=== PATIENT | male | born 1940 | race African-American/Black ===

== ENCOUNTER 2017-07-10 16:19 | Inpatient (IN) | payer MEDICARE, OTHER ==
[2017-07-10 17:02] LABS: Hemoglobin 11.6 g/dL (14.0-18.0); Mean Corpuscular HGB CONC 34.2 g/dL (32.0-36.0); Mean Corpuscular Hemoglobin 38.4 pg (27.0-31.0); Mean Platelet Volume 7.9 fL (7.4-10.4); Platelet Count 60 thou/uL (130-400); Red Blood Cell (RBC) Count 3.03 mill/uL (4.70-6.10); White Blood Cell (WBC) Count 15.7 thou/uL (4.8-10.8)
[2017-07-10 17:03] LABS: ALT (SGPT) 80 U/L (8-55); AST (SGOT) 544 U/L (5-34); Albumin 2.4 g/dL (3.4-4.8); Alkaline Phosphatase 51 U/L (40-150); Anion Gap 14 mmol/L (10-20); BUN (Urea Nitrogen) 17 mg/dL (8.4-25.7); Bilirubin, Total 1.6 mg/dL (0.2-1.2); Calc. Creatinine Clearance 0 mL/min (70-130); Carbon Dioxide 23 mmol/L (23-31); Chloride 103 mmol/L (98-107); Estimated GFR-MDRD 61; Globulin 2.2 g/dL (2.4-3.5); Glucose 65 mg/dL (83-110); Protein, Total 4.6 g/dL (5.8-8.1); Sodium 137 mmol/L (136-145)
[2017-07-10 17:18] LABS: Band 34 % (5-11); Lymphocytes 1 % (21-51); MDiff Complete? YES; Macrocytosis SLIGHT = 6-15 cells (100X) (0-5/hpf); Metamyelocyte 4 % (0-0); Monocytes 2 % (0-10); Neutrophil 59 % (42-75); PLT Morphology Comment Appears Decreased; Polychromasia SLIGHT = 2-3 cells (100X) (0-2/hpf); Potassium 2.9 mmol/L (3.5-5.1); Vacuoles SLIGHT
--- NOTE | 2017-07-10 17:27 | RAD ---
SINGLE VIEW OF THE CHEST: Comparison: None. History: Hematuria, fever. FINDINGS: Single view of the chest shows a normal sized cardiomediastinal silhouette with atherosclerotic calci fications in the aorta. Hyperexpansion of the lungs may be secondary to COPD. There is no evidence of consolidation, mass or pleural effusion. IMPRESSION: No evidence of acute cardiopulmonary disease. POS: [facility]
[2017-07-10] MEDS ORDERED: Piperacillin/Tazobactam 3.375 GM VIAL ONE (17:40)
[2017-07-10] MEDS ORDERED: SODIUM CHLORIDE 0.9% IVPB SCH ×2 (18:00)
[2017-07-10] MEDS ORDERED: POTASSIUM CHLORIDE IVPB SCH ×2 (18:00)
[2017-07-10] MEDS ORDERED: ADMIXTURE FEE CHEMO IVPB SCH ×2 (18:00)
--- NOTE | 2017-07-10 18:39 | CT ---
CT OF ABDOMEN AND PELVIS PERFORMED WITHOUT INTRAVENOUS CONTRAST ENHANCEMENT: History: Hematuria, fever. FINDINGS: The lung bases show emphysematous change. The liver and spleen as well as pancreas and gallbladder re gions appear fairly unremarkable given limitations of a noncontrast study. The gallbladder is slightl y distended. Some increased attenuation of the gallbladder lumen could represent some minimal sludge or potentially tiny stones but this equivocal. The right and left adrenal glands and right and left kidneys are normal in size. There are no renal c alculi or signs of obstruction. There is no significant periaortic adenopathy or obvious mesenteric a denopathy. There is some mild fluid filled distention of the small bowel. There is fluid within the r ight colon, air within the transverse colon. There is fat stranding which is fairly generalized but m ore prominent in the region of the ascending colon. Some of the air seen within the right colon near the cecum region is potentially within the bowel wall. I cannot exclude pneumotosis in this region. CT OF PELVIS PERFORMED WITHOUT CONTRAST ENHANCEMENT: The bladder is distended with a markedly enlarged prostate. There is fluid within the rectosigmoid re gion. The bladder wall is thickened considering the degree of distention. There are arthritic changes of the spine and hips noted. IMPRESSION: 1. Some mild generalized fat stranding within the fat, slightly more prominent in the ascending colon region. There is some air density which is along the right colon wall. I cannot exclude this as subt le areas of pneumotosis and the possibility of a colitis would have to be considered in this patient. There is also some mild fluid filled distention of some of the small bowel. 2. Distended bladder with an enlarged prostate. 3. Mild gallbladder distention. 4. Emphysematous lung change. Findings were discussed with Dr. Egan. POS: [facility]
--- NOTE | 2017-07-10 19:08 | PDOC.FPRHP ---
- History of Present Illness Chief Complaint: Severe sepsis, hematuria History of Present Illness: 76 yo M w PMH of HTN, BPH and blindness presents for weakness, hematuria, fever and low BP found by ems. Pt reports hematuria by 2-3 days, noticed today by family and has associated weakness, decreased appetite and nausea and vomiting over last 3 days. Hematuria is associated with some urethral irritation; but he denies suprapubic pain and tenderness. Pt reports some soft stool over same time period WITHOUT associated abd pain, hematochezia, and BRBPR. Additionally reports some SOB. He has not had anything to eat for the last 2 days, but is a current everyday drinker of approx 1.5 liters of liquor per week. He denies focal weakness, fever, chills, sweats, cp, constipation, and abdominal pain. Per nurse and pts chart when ems arrived pt was found to be hypotensive, tachycardic and had an elevated temperature. On chart review pt had a recent urinalaysis and culture done in [place] which showed Myroides and Providentia spp in the urine that was sensitive to cipro. At baseline pt is non-ambulatory. He reports he has not been compliant with his medications and has not seen his PCP in some time. Last medication refills were nearly 1 year ago. He is currently not taking any medications. PCP: Martha Code status: DNR ED Course: 4L NS, Vancomycin, Zosyn, 10 mEq K+ - Allergies/Adverse Reactions Allergies Allergy/AdvReac Type Severity Reaction Status Date / Time No Known Drug Allergies Allergy Verified 07/10/17 23:48 - Home Medications Medication Instructions Recorded Confirmed Type Aspirin 650 mg PO Q4HR PRN 07/10/17 07/10/17 History Budesonide-Formoterol [Symbicort 1 puff INH BID 07/10/17 07/10/17 History 160-4.5] Finasteride [Proscar] 5 mg PO DAILY 07/10/17 07/10/17 History Nebivolol HCl [Bystolic] 10 mg PO DAILY 07/10/17 07/10/17 History Triamterene/Hydrochlorothiazid 1 cap PO DAILY 07/10/17 07/10/17 History [Triamterene-Hctz 37.5-25 mg Cp] amLODIPine Bes/Olmesartan Med 1 each PO DAILY 07/10/17 07/10/17 History [Reuben 5-20 mg Tablet] Comments: Pt has not taken medications for several months. - History PMHx: HTN, BPH, COPD, HLD, hx CVA, alcohol abuse, former tobacco abuse, marijuana abuse, medication noncompliance PSHx:Unknown FHx:NA Social: Former smoker (45 pack-yr hx). Drinks 2 fifths of whiskey every week for many years. Smokes marijuana ~2x/wk for over 30 years. Denies other drug use. Lives at home with and brother. - Review of Systems General: reports: weight/appetite/sleep changes, fatigue. denies: fever/chills , night sweats Eyes: reports: other (Blind at baseline). denies: vision changes ENT: denies: nasal congestion, rhinorrhea Respiratory: reports: shortness of breath. denies: cough, congestion Cardiovascular: reports: edema. denies: chest pain, palpitation Gastrointestinal: reports: nausea, vomiting, diarrhea. denies: constipation, abdominal pain, GI bleeding Genitourinary: reports: dysuria, other (Hematuria, urinary retention) Skin: denies: rashes, lesions Musculoskeletal: denies: pain, swelling, arthritis/arthralgias Neurological: reports: weakness. denies: numbness, syncope - Vital signs BP: 88/65 HR: 122 RR: 22 Tmax: 100.4 Pox: 95% on RA Wt: 63.5Kg - Physical Exam Constitutional: awake, alert and oriented, other (Moderately distressed) HEENT: normocephalic and atraumatic, no scleral icterus, grossly normal hearing , MMM, oropharynx clear Neck: supple, trachea midline, no LAD, no JVD, no thyromegaly Chest: no-tender to palpation, no lesions Heart: RRR, normal S1/S2, no murmurs/rubs/gallops, other (Distant heart sounds) Lungs: CTAB, no respiratory distress, good air movement, no rales/rhonchi, no wheezing Abdomen: soft, non-tender, bowel sounds present, no masses/distention, other ( Normal resonence) Musculoskeletal: ROM grossly normal, other (wasting diffuse) Neurological: no focal deficit Skin: no rash/lesions, no jaundice Heme/Lymphatic: no purpura, no petechia, no LAD, other (Hematuria) FMR H&P: Results - Labs Result Diagrams: 07/11/17 03:45 07/11/17 03:45 Lab results: WBC 15.7 thou/uL (4.8-10.8) H 07/10/17 16:35 Hgb 11.6 g/dL (14.0-18.0) L 07/10/17 16:35 Hct 34.1 % (42.0-52.0) L 07/10/17 16:35 MCV 112.0 fl (80.0-94.0) H 07/10/17 16:35 Plt Count 60 thou/uL (130-400) L 07/10/17 16:35 Band Neuts % (Manual) 34 % (5-11) H 07/10/17 16:35 Sodium 137 mmol/L (136-145) 07/10/17 16:35 Potassium 2.9 mmol/L (3.5-5.1) L* 07/10/17 16:35 Chloride 103 mmol/L (98-107) 07/10/17 16:35 Carbon Dioxide 23 mmol/L (23-31) 07/10/17 16:35 BUN 17 mg/dL (8.4-25.7) 07/10/17 16:35 Creatinine 1.37 mg/dL (0.6-1.3) H 07/10/17 16:35 Glucose 65 mg/dL (83-110) L 07/10/17 16:35 Lactic Acid 6.5 mmol/L (0.5-2.2) H* 07/10/17 16:35 Calcium 7.0 mg/dL (7.8-10.44) L 07/10/17 16:35 Total Bilirubin 1.6 mg/dL (0.2-1.2) H 07/10/17 16:35 AST 544 U/L (5-34) H 07/10/17 16:35 ALT 80 U/L (8-55) H 07/10/17 16:35 Alkaline Phosphatase 51 U/L (40-150) 07/10/17 16:35 Serum Total Protein 4.6 g/dL (5.8-8.1) L 07/10/17 16:35 Albumin 2.4 g/dL (3.4-4.8) L 07/10/17 16:35 - EKG Interpretation EKG: NSR, low voltage, RRR - Radiology Interpretation CT scan - abdomen Status: report reviewed by me (Possible colitis, distended bladder, mildly distended gallbladder (equivocal)) Chest x-ray Status: report reviewed by me (No acute cardiothoracic process) FMR H&P: A/P - Problem List (1) Severe sepsis Current Visit: Yes Status: Acute Code(s): A41.9 - SEPSIS, UNSPECIFIED ORGANISM; R65.20 - SEVERE SEPSIS WITHOUT SEPTIC SHOCK (2) Hematuria Current Visit: Yes Status: Acute Code(s): R31.9 - HEMATURIA, UNSPECIFIED (3) Colitis Current Visit: Yes Status: Suspected Code(s): K52.9 - NONINFECTIVE GASTROENTERITIS AND COLITIS, UNSPECIFIED (4) UTI (urinary tract infection) due to urinary indwelling catheter Current Visit: Yes Status: Suspected Code(s): T83.511A - I/I REACT D/T INDWELLING URETHRAL CATHETER, INIT; N39.0 - URINARY TRACT INFECTION, SITE NOT SPECIFIED (5) Acute kidney injury Current Visit: Yes Status: Suspected Code(s): N17.9 - ACUTE KIDNEY FAILURE, UNSPECIFIED (6) Transaminitis Current Visit: Yes Status: Acute Code(s): R74.0 - NONSPEC ELEV OF LEVELS OF TRANSAMNS & LACTIC ACID DEHYDRGNSE (7) Hypokalemia Current Visit: Yes Status: Acute Code(s): E87.6 - HYPOKALEMIA (8) Hypocalcemia Current Visit: Yes Status: Acute Code(s): E83.51 - HYPOCALCEMIA (9) Malnourished Current Visit: Yes Status: Chronic Code(s): E46 - UNSPECIFIED PROTEIN- CALORIE MALNUTRITION (10) Peripheral edema Current Visit: Yes Status: Chronic Code(s): R60.9 - EDEMA, UNSPECIFIED (11) Alcohol abuse Current Visit: Yes Status: Chronic Code(s): F10.10 - ALCOHOL ABUSE, UNCOMPLICATED (12) Drug abuse Current Visit: Yes Status: Chronic Code(s): F19.10 - OTHER PSYCHOACTIVE SUBSTANCE ABUSE, UNCOMPLICATED (13) HTN (hypertension) Current Visit: Yes Status: Chronic Code(s): I10 - ESSENTIAL (PRIMARY) HYPERTENSION (14) BPH (benign prostatic hyperplasia) Current Visit: Yes Status: Chronic Code(s): N40.0 - BENIGN PROSTATIC HYPERPLASIA WITHOUT LOWER URINRY TRACT SYMP (15) Macrocytic anemia Current Visit: Yes Status: Acute Code(s): D53.9 - NUTRITIONAL ANEMIA, UNSPECIFIED - Plan 1. Severe sepsis 2/2 suspected UTI vs colitis. BP 88/50s on admission and improved to 100s systolic with 4LNS. Lactic acid 6.5, WBC 15K. Pt to be admitted to [facility]. Likely 2/[address] vs [address] abd showed possible colitis, distended bladder and mildly enlarged gallbladder. Will cover with broad spectrum abx including vanc, zosyn. Add cipro 2/2 recent urine culture which showed possible resistance to zosyn. Continue current bolus, will add D5 + LR w/ 40mEq Kcl. Monitor pressures, titrate fluids accordingly. Elevated LFTs and Creatinine, likely 2/2 hypotension and global hypo-perfusion. Check CK. Trend lactic acid. AM CBC and CMP, blood and urine culture pending. 2. Gross hematuria. Urology consulted, appreciate recs. Recommended changing persaud. Will reassess with PVR after persaud has been changed. UA and culture are pending. Given most recent culture done on 06/25, will cover for those organisms with cipro, vanc and zosyn. 4. Colitis, possible. Empiric coverage, IV zosyn, vanc and cipro. 3. UTI, suspected. See above. 5. GENEVIEVE vs CKD. Creatinine 1.37, unknown baseline. Repeat am CMP. Continue IVF. 6. Hypokalemia. 2.9 on admission labs. No EKG changes. Cont D5 LR w/ KCl 7. Transaminitis. alcohol abuse vs hypoperfusion vs rhabdo. AM CMP. 8. Alcohol abuse. Approx 1.5L liquor per week. ASE protocol. IV thiamine and multivitamin. Trend LFTs. Office Aide on cessation. Check B12 and RBC folate. 9. Peripheral edema. Check BNP. 10. Hypocalcemia. Corrects to normal range (8.3) 11. BPH. Await urology recs. Supposed to be on finasteride but not taking. Sees Dr. Cho outpatient. Bladder distended and thickened on CT. 12. HTN. Monitor BPs as sepsis resolves and start oral meds prn. Not compliant at home. 13. Marijuana abuse. Counseling. Smokes regularly for over 30 years. 14. Deconditioning. Endorses not walking for last 6 months due to weakness. Pt is blind but appears to have been ambulatory until recently. PT/OT evaluation. 15. Macrocytic anemia. Likely related to alcohol abuse. Check B12 and folate. CBC in AM. 16. PPX: SCDs and Pepcid for DVT and GI ppx, respectively. 17. Code status: Pt wishes to be DNR. Spoke with pt regarding options and he still wishes to be DNR. Disposition/LOS: LOS:>/= 2 days. Dispo: Guarded. FMR H&P: Upper Level - Pertinent history 76 yo AAM with PMHx HTN, likely BPH, alcohol abuse, and medication noncompliance presented via EMS from home due to hematuria, fever, and hypotension. Pt currently requires indwelling persaud and is under care of Dr. Cho (urology) for assumed BPH. Blood has been present in persaud bag for last few days. Catheter changed last PM by HH nurse and saw more blood and some difficulty initially getting urine to drain. This change was also more painful than normal. Hematuria continued today along with fever 101 prompting EMS call. EMS found him lying on his couch with BP 80s/50s, HR 120s, and temp 100.4. He was then brought to the hospital. Pt lives at home with and brother. Apparently does not take any of his meds by choice. He is blind. Has not walked in over 6 months due to subjective weakness in legs. Drinks 2 fifths of whiskey per week. Endorses mild cough and loose stool yesterday. One episode of vomiting last night. No abd pain. Family not present for interview. - Pertinent findings Gen: thin, alert, NAD HEENT: poor dentition, MMM Lungs: CTAB, no increased WOB CV: Distant heart sounds, RRR, no obvious m/r/g although difficult to auscultate Abd: NT/ND, no rebound or guarding, no organomegaly, abd wall muscles mildly tense diffusely although no pain and attempting to relax for exam Ext: 3+ pitting BLE edema distal 1/3rd of shins and feet/ankles Skin: no visualized lesions, capillary refill <2 sec : indwelling catheter in place with jenny hematuria in bag Psych: A&Ox4, distant and recent memory fair, answers questions appropriately - Plan Date/Time: 07/10/171906 1. Severe sepsis 2/2 suspected UTI vs colitis. WBC 15.7 with 34% bands, tachycardic to 122, and fever 100.4. Hypotensive with lactate 6.5. After 4L NS, pts hypotension and tachycardia improved. Pt has indwelling persaud which is nidus for infection. Likely somewhat immunocompromised 2/2 heavy alcohol abuse. Still awaiting UA as collected late in ED after abx but had semi-resistant organisms on UCx from 06/25/17. CT abd showed possible early colitis findings, distended bladder, and mildly distended gallbladder. Start broad spectrum abx. Added Cipro due to UCx 2 wks ago that showed semi-resistant organism to Zosyn. Repeat lactate in 4 hours. Check trops. Other potential signs of end-organ damage include transaminitis and elevated Cr. Continue IV fluids and will monitor closely in IMCU. Admit for expected 2 day stay. 2. Gross hematuria. Consulted urology who recommended changing out persaud and monitoring overnight. Suspected blood clot in tubing. No irrigation overnight at this time. Pt has thrombocytopenia likely 2/2 heavy alcohol abuse. Await coags. H/H appears stable but repeat in AM. 4. Colitis, possible. Coverage with broad spectrum to cover for infectious causes although hx not consistent. Findings on CT as above. Monitor closely for evolution of symptoms. 3. UTI, suspected. See above. Urine results not available but this is highly likely due to indwelling catheter. Continue abx and await urine testing including culture. 5. GENEVIEVE vs CKD. Unknown baseline but GFR 61 with Cr 1.37. Heavy fluids and expect some improvement overnight. Repeat CMP in AM. 6. Hypokalemia. 2.9 on admission labs. Pending EKG. IV K given in ED and will add to IV fluids. Recheck in AM. 7. Transaminitis. Suspect 2/2 heavy alcohol abuse and hypoperfusion. Monitor CMP in AM. 8. Alcohol abuse. Heavy use - 2 fifths of whiskey per week. ASE protocol. Suspect poor nutritional labs 2/2 this. May be immunocompromised from this as well. Macrocytic anemia suspected related. Will give thiamine IV for 3 days then transition to PO. Multivitamin. Dietary consult as appears malnourished. Screen for HIV, hepatitis, and syphilis. Office Aide on cessation. 9. Peripheral edema. Check BNP. Pt denies hx CHF although poorly compliant with medical care. 10. Hypocalcemia. Corrects to normal range (8.3) for low albumin. 11. BPH. Await urology recs. Supposed to be on finasteride but not taking. Sees Dr. Cho outpatient. Bladder distended and thickened on CT. 12. HTN. Monitor BPs as sepsis resolves and start oral meds prn. Not compliant at home. 13. Marijuana abuse. Counseling. Smokes regularly for over 30 years. 14. Deconditioning. Endorses not walking for last 6 months due to weakness. Pt is blind but appears to have been ambulatory until recently. PT/OT evaluation. 15. Macrocytic anemia. Likely related to alcohol abuse. Check B12 and folate. CBC in AM. I, Rocky Ferrari, have evaluated this patient and agree with findings/plan as outlined by quality intern resident. Pertinent changes/additions are listed here. Attending Addendum - Attending Addendum Date/Time: 07/11/17 9490 I personally evaluated the patient and discussed the management with Dr. Pope and Dr. Ferrari I agree with the History, Examination, Assessment and Plan documented above with any addition or exceptions noted below. 76 yo male with multiple medical problems admitted for severe sepsis Reports fatigue, weakness, and decrease appetite. Hematuria 07/09/17. Persaud recently changed on 07/09/17. EMS contacted. Patient found to be hypotensive and febrile on arrival. Septic shock: Resolved at present. No pressers needed. Admit to IMCU overnight due to borderline pressures on monitoring in the ER low 100s. Rare SBP in 90s. GENEVIEVE on labs. Continue IVF bolus prn. Now s/p 4L. Will start with maintenance and adjust as needed. Severe sepsis: Significant lactic acidosis. Trend labs. Source appears to be urinary but concern for colitis as well. Broad coverage at present until able to de-escalate for cultures and imaging. Gross hematuria: Unsure etiology. Possible trauma related/infection/ thrombocytopenia/or other pathology. Will replace persaud. Urology to evaluate in AM. Continue to flush to make sure not clots form. Bladder distended on CT. GENEVIEVE: Improving with hydration. Trend labs. CKD at baseline. Renal dose medications. 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 Place on ASE protocol. Trend labs and coags. Monitor for other mucousal bleeding (GI) as well due to thrombocytopenia. Monitor closely as well as caution with drug metabolites. Continue to monitor chronic condition and adjust medications as needed. Frantz
[2017-07-10 21:03] LABS: Lactic Acid 3.7 mmol/L (0.5-2.2)
[2017-07-10] MEDS ORDERED: Ondansetron ODT 4 MG TAB SL PRN (21:56)
[2017-07-10] MEDS ORDERED: Ondansetron HCl/PF 4 MG/2 ML Vial IVP PRN ×2 (21:56→22:17)
[2017-07-10] MEDS ORDERED: Sodium Chloride 0.9% 1,000 ML IV SCH (22:00)
[2017-07-10] MEDS ORDERED: Multivit, Therapeutic 1 TAB PO SCH (22:17)
[2017-07-10] MEDS ORDERED: Acetaminophen 325 MG TAB PO PRN (22:17)
[2017-07-10] MEDS ORDERED: Famotidine 40 MG/4 ML VIAL SLOW IVP SCH (22:30)
[2017-07-10 22:40] LABS: INR-International Normal Ratio 1.6; Prothrombin Time 19.2 SEC (12.0-14.7)
[2017-07-10 22:41] LABS: PTT 43.5 SEC (22.9-36.1)
[2017-07-10 22:43] LABS: Syphilis Antibody Nonreactive (Nonreactive); Syphilis Antibody Index 0.08 S/CO (<1.00 Non-Reactive)
[2017-07-10] MEDS ORDERED: VANCOMYCIN/ RENALLY ADJUST ZOSYN IVPB PRN (22:46)
[2017-07-10] MEDS: Potassium Chloride 40 MEQ in Dextrose 5%-Lactated Ringers 1,000 ML IV SCH (22:49)
[2017-07-10 22:59] LABS: Troponin I 0.276 ng/mL (< 0.028)
[2017-07-10 23:36] LABS: HIV (1/2) Antibody/Antigen Non-Reactive (NonReactive); HIV 1/2 INDEX 0.16 S/CO (<1.00); Hep C IgG Ab Non-Reactive (NonReactive)
[2017-07-10 23:53] LABS: Bilirubin Negative (Negative); Blood, Urine Large (Negative); Clarity TURBID (Clear); Glucose, Urine (Dipstick) Negative (Negative); Leukocyte Large (Negative); Nitrite Negative (Negative); Protein, Urine (Dipstick) 100 mg/dL (Neg-Trace); pH, Urine 7.5 (5.0-9.0)
[2017-07-10 23:56] LABS: Bacteria/HPF 4+ HPF (None Seen); Hyaline Casts/LPF 0-3 HYALINE CAST LPF (0-3 Hyaline); Squamous Epithelial 0-3 HPF (0-3)
[2017-07-10 23:57] LABS: Yeast-AUWi Flag 78.2 (0-25.0)
[2017-07-11 00:08] LABS: Crystals/HPF None Seen HPF (Negative); Yeast-All Forms None Seen HPF (None Seen)
[2017-07-11 01:15] LABS: HBSAg Index 6081.62 S/CO (0-0.99); Hep B Surf Ag Reactive S/CO (NonReactive)
[2017-07-11] MEDS: Piperacillin/Tazobactam 4.5 GM in Sodium Chloride 0.9% 100 ML IVPB SCH ×3 (02:31→17:04)
[2017-07-11 04:27] LABS: ALT (SGPT) 112 U/L (8-55); AST (SGOT) 450 U/L (5-34); Albumin 2.3 g/dL (3.4-4.8); Alkaline Phosphatase 49 U/L (40-150); Anion Gap 9 mmol/L (10-20); BUN (Urea Nitrogen) 20 mg/dL (8.4-25.7); Band 25 % (5-11); Bilirubin, Total 1.1 mg/dL (0.2-1.2); Calc. Creatinine Clearance 44 mL/min (70-130); Calcium 6.7 mg/dL (7.8-10.44); Carbon Dioxide 25 mmol/L (23-31); Chloride 106 mmol/L (98-107); Estimated GFR-MDRD 74; Globulin 2.1 g/dL (2.4-3.5); Glucose 121 mg/dL (83-110); Hemoglobin 12.6 g/dL (14.0-18.0); Lymphocytes 7 % (21-51); MDiff Complete? YES; Mean Corpuscular HGB CONC 35.2 g/dL (32.0-36.0); Mean Corpuscular Hemoglobin 39.4 pg (27.0-31.0); Mean Platelet Volume 8.4 fL (7.4-10.4); Monocytes 1 % (0-10); Neutrophil 67 % (42-75); PLT Morphology Comment Appears Decreased; Platelet Count 57 thou/uL (130-400); Potassium 3.1 mmol/L (3.5-5.1); Protein, Total 4.4 g/dL (5.8-8.1); Sodium 137 mmol/L (136-145); White Blood Cell (WBC) Count 13.9 thou/uL (4.8-10.8)
[2017-07-11 04:30] LABS: Lactic Acid 2.2 mmol/L (0.5-2.2)
[2017-07-11] MEDS ORDERED: Lactated Ringer's 500 ML IV SCH (06:00)
[2017-07-11 06:54] LABS: Troponin I 0.243 ng/mL (< 0.028)
[2017-07-11 07:32] LABS: HBCM Index 0.07 S/CO (0-0.79); Hep B Surf AB Non-Reactive (NonReactive); Hepatitis B Core IGM Abs Non-Reactive (NonReactive)
[2017-07-11] MEDS: Potassium Chloride 20 MEQ/100 ML PREMIX BAG IVPB SCH ×2 (08:10→12:42)
[2017-07-11 09:07] LABS: Hep B Core Total Ab Reactive (NonReactive); Hep B Core Total Index 11.52 S/CO (0-0.79)
--- NOTE | 2017-07-11 09:52 | PDOC.FM ---
- Subjective Subjective: Patient states he is feeling good except for burning in his arm from potassium infusion. He reports that he never felt bad prior to coming in and was only encouraged to come by bother and due to the blood in urine. He reports being unable to walk for nearly the last 6-8 months. He also reports loosing his vision for that same amount of time. Does not know why he lost his vision but reports he had been seeing eye doctor and getting drops but gradually vision got worse and now blind. He reports an episode of loose stools yesterday per his brother. His brother brings him food, changes him, bathes him, and takes him to doctor's appointments occasionally. He otherwise reports staying on the couch all day bc he cannot walk. He states he just feels weak in his legs. Reports LE swelling for several months. He does not report SOB while laying flat but in general reports SOB. He reports daily drinking recently but prior to that he could go days without drinking. He denies agitation, tremors, restlessness. He denies chest pain. - Objective MAR Reviewed: Yes Vital Signs & Weight: Vital Signs (12 hours) Temp Pulse Resp BP Pulse Ox 07/11/17 07:19 98.4 F 87 20 98/70 100 07/11/17 04:22 98.3 F 89 18 94/65 100 07/11/17 04:16 96 07/10/17 23:54 98.0 F 86 114/70 96 07/10/17 22:17 96 Weight Admit Weight 56.812 kg Weight 58.23 kg Result Diagrams: 07/11/17 03:45 07/11/17 03:45 <Azeb Samuel - Last Filed: 07/11/17 11:08> - Objective Vital Signs & Weight: Vital Signs (12 hours) Temp Pulse Resp BP Pulse Ox 07/11/17 11:30 98.6 F 110 H 23 H 103/73 100 07/11/17 08:00 98.4 F 87 20 07/11/17 07:19 98.4 F 87 20 98/70 100 07/11/17 04:22 98.3 F 89 18 94/65 100 07/11/17 04:16 96 07/10/17 23:54 98.0 F 86 114/70 96 Weight Admit Weight 56.812 kg Weight 58.23 kg Result Diagrams: 07/11/17 03:45 07/11/17 03:45 <Amanda Alvarenga - Last Filed: 07/11/17 12:00> Phys Exam - Physical Examination Constitutional: NAD lying flat in bed, conversing easily Respiratory: no wheezing, no rales, no rhonchi decreased breath sounds BLL Cardiovascular: RRR very faint distant heart sounds, no murmurs noted Gastrointestinal: soft, non-tender, no distention 3+ pitting edema to mid calf/bae bilaterally Neurological: non-focal strength 5/5 in BLE, sensation intact Psychiatric: normal affect, A&O x 3 <Azeb Samuel - Last Filed: 07/11/17 11:08> Dx/Plan (1) Macrocytic anemia Code(s): D53.9 - NUTRITIONAL ANEMIA, UNSPECIFIED Status: Acute (2) Severe sepsis Code(s): A41.9 - SEPSIS, UNSPECIFIED ORGANISM; R65.20 - SEVERE SEPSIS WITHOUT SEPTIC SHOCK Status: Acute (3) Transaminitis Code(s): R74.0 - NONSPEC ELEV OF LEVELS OF TRANSAMNS & LACTIC ACID DEHYDRGNSE Status: Acute (4) Alcohol abuse Code(s): F10.10 - ALCOHOL ABUSE, UNCOMPLICATED Status: Chronic (5) BPH (benign prostatic hyperplasia) Code(s): N40.0 - BENIGN PROSTATIC HYPERPLASIA WITHOUT LOWER URINRY TRACT SYMP Status: Chronic (6) HTN (hypertension) Code(s): I10 - ESSENTIAL (PRIMARY) HYPERTENSION Status: Chronic (7) Malnourished Code(s): E46 - UNSPECIFIED PROTEIN-CALORIE MALNUTRITION Status: Chronic (8) Peripheral edema Code(s): R60.9 - EDEMA, UNSPECIFIED Status: Chronic (9) Acute kidney injury Code(s): N17.9 - ACUTE KIDNEY FAILURE, UNSPECIFIED Status: Suspected (10) UTI (urinary tract infection) due to urinary indwelling catheter Code(s): T83.511A - I/I REACT D/T INDWELLING URETHRAL CATHETER, INIT; N39.0 - URINARY TRACT INFECTION, SITE NOT SPECIFIED Status: Suspected - Plan Plan: 76 yr old male with PMH of BPH, blindness, HTN presents for hematuria. 1. severe sepsis with gram negative bacteremia likely 2/2 UTI from chronic indwelling catheter- Pt is on broad spectrum abx. Cipro has been added since his last UTI (< 1 month ago) revealed myroides which was only sensitive to cipro /levaquin. He is now s/p > 5 lts fluid and did not require pressors. cont fluids. Afebrile and HR nml. Improving and will send to medical floor. 2. UTI -by UA -awaiting cx -see #1 3. BPH -urology consulted, appreciate recs 4. hematuria - suspect 2/2 # 2 and/or 3 -appears to be resolving -low RBC on UA 5. transaminitis likely 2/2 chronic Hep B infection and alcohol abuse - cont to monitor LFTs -INR wnl -low platelets- cont to monitor - will obtain RUQ sono 6. chronic Hepatitis B infection -obtain Hep B DNA -RUQ sono 7. suspected heart failure -obtain ECHO -BNP > 700 8. macrocytic anemia -pending folate -B12 wnl 9. alcohol abuse - cont on ASE protocol -daily multivitamin, thiamine, folic acid 10. Acute kidney injury -improved with fluids -monitor UOP 11. blindness -suspect macular degeneration but will request records from Dr. Montes -Will have CM see patient for resources 12. deconditioning -consult PT Dispo- Will require at least another 48 hours of hospitalization but pt is considering a SNU at discharge. Will have CM consulted for dispo planning. <Azeb Samuel - Last Filed: 07/11/17 11:08> Attending Addendum - Attending Addendum Date/Time: 07/11/17 [id number] I personally evaluated the patient and discussed the management with Dr. Samuel I agree with the History, Examination, Assessment and Plan documented above with any addition or exceptions noted below- Patient without complaints. Afebrile VSS. A/P: 1) Sepsis secondry to UTI- continue IV antibtiotics. Patient has chronic in-dwelling persaud which has been changed out. Await urine and blood cultures. Tachycardia and hypotension resolved. 2) Chronic hep B- check viral load. 3) Deconditioning- continue PT. 4) Alcohol use- continue MVI and thiamine. <Amanda Alvarenga - Last Filed: 07/11/17 12:00>
[2017-07-11 10:02] LABS: Troponin I 0.215 ng/mL (< 0.028)
--- NOTE | 2017-07-11 11:54 | PQF ---
DATE: 07-11-17 ATTN : DR. JOSÉ MIGUEL GARIBAY Please exercise your independent, professional judgment in responding to the clarification form. Clinical indicators are provided on the bottom of this form for your review Please check appropriate box(s): [ x ] suspect Demand Ischemia [ ] [place] Type ( ) [ ] Other [x ] Unable to determine In addition, please specify: Present on Admission (POA): [x ] Yes [ ] No [ ] Unable to determine CLINICAL INDICATORS - SIGNS / SYMPTOMS / LABS H&P: HTN, COPD, HYPERLIPIDEMIA, HX OF CVA, ALCOHOL ABUSE, FORMER TOBACCO ABUSE, MARIJUANA ABUSE, MEDICATION NONCOMPLIANCE TROPONIN: 07-10-17: 0.276 07-11-17: 0.215 07-11-17: 0.243 H&P: PRESENTS WITH WEAKNESS, FEVER, LOW BP, HEMATURIA, DECREASED APPETITE AND NAUSEAS AND VOMITING OVER LAST 3 DAYS RISKS: H&P: HTN, COPD, HYPERLIPIDEMIA, HX OF CVA, ALCOHOL ABUSE, FORMER TOBACCO ABUSE, MARIJUANA ABUSE, MEDICATION NONCOMPLIANCE TREATMENTS: (ER) 02 2L CONTINUOUS CARDIAC MONITORING ECHO ORDERED (This form is maintained as a part of the permanent medical record) 2014 [employer]. All Rights Reserved [email or web address] [email or web address] Office: [phone] CLARA
[2017-07-11] MEDS: Potassium Chloride 40 MEQ in Dextrose 5%-Lactated Ringers 1,000 ML IV SCH (12:42)
--- NOTE | 2017-07-11 13:07 | PQF ---
Date: 07-11-17 ATTN: DR. JOSÉ MIGUEL GARIBAY Please exercise your independent, professional judgment in responding to the clarification form. Clinical indicators are provided on the bottom of this form for your review Please check appropriate box(s): [ x ] Protein Calorie Malnutrition: [ ] Mild [ ] Moderate [ x ] Severe [ ] Cachexia [ ] Other diagnosis [ ] Unable to determine In addition, please specify: Present on Admission (POA): [ x ] Yes [ ] No [ ] Unable to determine CLINICAL INDICATORS - SIGNS / SYMPTOMS / LABS BMI of 17.4 ALBUMIN: 07-10-17: 2.4 07-11-17: 2.3 H&P: WEAKNESS, DECREASED APPETITE AND NAUSEA, AND VOMITING OVER LAST 3 DAYS, PERIPHERAL EDEMA H&P: CHRONIC MALNOURISHED UNSPECIFIED PROTEIN CALORIE RISK FACTORS: H&P: WEAKNESS, DECREASED APPETITE AND NAUSEA, AND VOMITING OVER LAST 3 DAYS, PERIPHERAL EDEMA, DRINKS LIQUOR, HX OF COPD, HX OF CVA, HX OF HYPERLIPIDEMIA, DECONDITIONING, FORMER SMOKER, MARIJUANA ABUSE TREATMENT: DIETARY CONSULT 07-11-17 (MAY) THERAGRAN Moderate Malnutrition (in acute illness) Energy Intake: <75% of estimated energy requirement for > 7 days Weight Loss: 1-2%/1 week; 5%/ 1 month; 7.5%/3 months Other: mild body fat loss; mild muscle mass loss; mild fluid accumulation; Severe Malnutrition (in acute illness) Energy Intake: < 50% of estimated energy requirement for > 5 days Weight Loss: >1-2%/1 week; >5%/1 month; >7.5%/3 months Other: moderate body fat loss; moderate muscle mass loss; moderate- severe fluid accumulation; measurably reduced chemist enzymes strength Moderate Malnutrition (in chronic illness) Energy Intake: <75% of estimated energy requirement for >1 month Weight Loss: 5%/1 month; 7.5%/3 months; 10%/6 months; 20%/1 year Other: mild body fat loss; mild muscle mass loss; mild fluid accumulation Severe Malnutrition (in chronic illness) Energy Intake: <75% of estimated energy requirement for >1 month Weight Loss: >5%/1 month; >7.5%/3 months; >10%/6 months; >20%/1 year Other: severe body fat loss; severe muscle mass loss; severe fluid accumulation ; measurably reduced chemist enzymes strength (This form is maintained as a part of the permanent medical record) 2014 [email or web address]. All Rights Reserved [email or web address] Office: [phone] [facility] HOSPITALNathaniel
[2017-07-11] MEDS: Mometasone/Formoterol 120 PUFF INHALER INH SCH (13:33)
[2017-07-11] MEDS: Vancomycin HCl 1 GM in Premix Bag 1 BAG IVPB SCH (17:03)
[2017-07-11] MEDS: Potassium Chloride 40 MEQ in Dextrose 5%-Lactated Ringers 1,000 ML IVPB SCH (17:59)
--- NOTE | 2017-07-11 20:56 | CON ---
DATE OF CONSULTATION: 07/11/2017 CHIEF COMPLAINT: Gross hematuria. HISTORY: Mr. Pena is a 76-year-old gentleman admitted to the hospital for gross hematuria along with weakness. The history is obtained from the chart and from the patient. His urologic history dates back several months ago when he developed urinary retention. He has had a Pereira catheter in place since then. He has been evaluated by Dr. Cho from a urologic standpoint. According to the patient, the plan at this time is chronic indwelling Pereira catheter with a catheter change being performed approximately every month. He was doing well until recently when he had his catheter changed, he developed gross hematuria. He was brought to the emergency room for further evaluation. He denies any pain. He does have some diminished appetite and some weakness. Denies fevers or chills. It should be noted that urine culture was performed recently and demonstrated Myroides and Providencia, sensitive to CIPRO. Since admission and since hydration, his urine has cleared and there is no known visible gross hematuria. Patient has a history of alcohol use. He has been nonambulatory for several months apparently after a couple of falls and he blames his inability to ambulate on his left knee. He has blindness. PAST MEDICAL HISTORY: Blindness, alcoholism. He is nonambulatory, urinary retention, hypertension, history of CVA. MEDICATIONS: Patient is not taking medication at this time, although prescriptions include Proscar, triamterene, hydrochlorothiazide, amlodipine, aspirin. ALLERGIES: No known drug allergies. REVIEW OF SYSTEMS: Patient does have some loss of appetite. Denies fevers or chills. Visual: He is blind. Denies any recent changes. Respiratory: Denies cough or hemoptysis. Cardiovascular: Denies chest pain or palpitations. Gastrointestinal: Denies chronic constipation or diarrhea. PHYSICAL EXAMINATION: GENERAL: He is awake and alert. He is in no distress at this time. HEENT: Normocephalic, atraumatic. NECK: No masses. CHEST: Clear to auscultation. CARDIOVASCULAR: No murmurs auscultated. ABDOMEN: Soft, nontender, no peritoneal signs. LABORATORY DATA: White blood cell count 13.9, creatinine 1.16. A CT scan demonstrates no upper urinary tract abnormalities. The bladder was distended when the CT was performed. The catheter has since been changed. IMPRESSION: Gross hematuria most likely related to recent urinary tract infection and possibly catheter trauma. The urine has cleared with hydration and antibiotic therapy. There is no upper urinary tract source for the hematuria and that there are no stones or tumors noted on the CT scan. I am unsure whether he has had cystoscopy or not, we will need to obtain his records from Dr. Cho. RECOMMENDATIONS: 1. Agree with cultures and Cipro at this time. 2. Cystoscopy may be needed in the future if it has not been recently performed by Dr. Cho. 3. No further urologic recommendations at this time. [facility]
[2017-07-11] MEDS ORDERED: Famotidine 20 MG TAB PO SCH (21:00)
[2017-07-11] MEDS ORDERED: Famotidine 40 MG/4 ML VIAL SLOW IVP SCH (21:00)
[2017-07-11] MEDS: Famotidine 40 MG/4 ML VIAL SLOW IVP SCH (21:46)
[2017-07-12] MEDS: Piperacillin/Tazobactam 4.5 GM in Sodium Chloride 0.9% 100 ML IVPB SCH ×3 (02:08→18:22)
[2017-07-12 04:18] LABS: ALT (SGPT) 75 U/L (8-55); AST (SGOT) 144 U/L (5-34); Albumin 2.2 g/dL (3.4-4.8); Alkaline Phosphatase 48 U/L (40-150); Anion Gap 7 mmol/L (10-20); BUN (Urea Nitrogen) 22 mg/dL (8.4-25.7); Bilirubin, Total 0.9 mg/dL (0.2-1.2); Calc. Creatinine Clearance 51 mL/min (70-130); Calcium 7.2 mg/dL (7.8-10.44); Carbon Dioxide 26 mmol/L (23-31); Chloride 106 mmol/L (98-107); Estimated GFR-MDRD 85; Globulin 2.1 g/dL (2.4-3.5); Glucose 124 mg/dL (83-110); Potassium 3.6 mmol/L (3.5-5.1); Protein, Total 4.3 g/dL (5.8-8.1); Sodium 135 mmol/L (136-145)
[2017-07-12 04:21] LABS: Band 20 % (5-11); Lymphocytes 12 % (21-51); MDiff Complete? YES; Macrocytosis SLIGHT = 6-15 cells (100X) (0-5/hpf); Mean Corpuscular HGB CONC 36.1 g/dL (32.0-36.0); Mean Corpuscular Hemoglobin 40.7 pg (27.0-31.0); Mean Platelet Volume 9.2 fL (7.4-10.4); Monocytes 3 % (0-10); Neutrophil 65 % (42-75); PLT Morphology Comment Appears Decreased; Platelet Count 45 thou/uL (130-400); Red Blood Cell (RBC) Count 2.94 mill/uL (4.70-6.10); White Blood Cell (WBC) Count 8.6 thou/uL (4.8-10.8)
[2017-07-12] MEDS: Potassium Chloride 40 MEQ in Dextrose 5%-Lactated Ringers 1,000 ML IVPB SCH (05:35)
--- NOTE | 2017-07-12 06:48 | PDOC.FM ---
- Subjective Subjective: Patient feeling good this AM. He has no complaints. He declined PT due to knee pain. He has not had his knee evaluated for the pain and instead states he thought in time the knee would get better. He is tolerating PO. No acute events overnight. - Objective MAR Reviewed: Yes Vital Signs & Weight: Vital Signs (12 hours) Temp Pulse Resp BP Pulse Ox 07/12/17 04:00 98.1 F 73 20 118/79 100 07/12/17 00:00 98.9 F 78 20 119/81 98 07/11/17 20:00 97.8 F 83 20 100 07/11/17 19:53 97.8 F 83 20 131/84 100 Weight Admit Weight 56.812 kg Weight 58.4 kg I&O: 07/10/17 07/11/17 07/12/17 06:59 06:59 06:59 Intake Total 650 Output Total 530 Balance 120 Result Diagrams: 07/12/17 03:25 07/12/17 03:25 <Azeb Samuel - Last Filed: 07/12/17 10:07> - Objective Vital Signs & Weight: Vital Signs (12 hours) Temp Pulse Resp BP BP Pulse Ox 07/12/17 18:47 78 16 99 07/12/17 16:00 98.2 F 78 20 112/79 99 07/12/17 11:00 98.3 F 83 20 119/78 100 Weight Admit Weight 56.812 kg Weight 58.4 kg I&O: 07/11/17 07/12/17 07/13/17 06:59 06:59 06:59 Intake Total 650 2040 Output Total 530 275 Balance 120 1765 Result Diagrams: 07/12/17 03:25 07/12/17 03:25 <Amanda Alvarenga - Last Filed: 07/12/17 21:27> Phys Exam - Physical Examination Constitutional: NAD Respiratory: no wheezing, no rales, no rhonchi, clear to auscultation bilateral distant breath sounds, poor inspiratory effort. Cardiovascular: RRR distant faint heart sounds. Gastrointestinal: soft, non-tender, no distention 1+ pitting bilateral LE edema Neurological: non-focal, moves all 4 limbs Psychiatric: normal affect, A&O x 3 <Azeb Samuel - Last Filed: 07/12/17 10:07> Dx/Plan (1) Severe sepsis Code(s): A41.9 - SEPSIS, UNSPECIFIED ORGANISM; R65.20 - SEVERE SEPSIS WITHOUT SEPTIC SHOCK Status: Resolved (2) UTI (urinary tract infection) due to urinary indwelling catheter Code(s): T83.511A - I/I REACT D/T INDWELLING URETHRAL CATHETER, INIT; N39.0 - URINARY TRACT INFECTION, SITE NOT SPECIFIED Status: Suspected (3) Transaminitis Code(s): R74.0 - NONSPEC ELEV OF LEVELS OF TRANSAMNS & LACTIC ACID DEHYDRGNSE Status: Acute (4) Macrocytic anemia Code(s): D53.9 - NUTRITIONAL ANEMIA, UNSPECIFIED Status: Chronic (5) Alcohol abuse Code(s): F10.10 - ALCOHOL ABUSE, UNCOMPLICATED Status: Chronic (6) BPH (benign prostatic hyperplasia) Code(s): N40.0 - BENIGN PROSTATIC HYPERPLASIA WITHOUT LOWER URINRY TRACT SYMP Status: Chronic (7) HTN (hypertension) Code(s): I10 - ESSENTIAL (PRIMARY) HYPERTENSION Status: Chronic (8) Malnourished Code(s): E46 - UNSPECIFIED PROTEIN-CALORIE MALNUTRITION Status: Chronic (9) Peripheral edema Code(s): R60.9 - EDEMA, UNSPECIFIED Status: Chronic (10) Acute kidney injury Code(s): N17.9 - ACUTE KIDNEY FAILURE, UNSPECIFIED Status: Resolved (11) Thrombocytopenia Code(s): D69.6 - THROMBOCYTOPENIA, UNSPECIFIED Status: Acute - Plan Plan: 76 yr old male with PMH of BPH, blindness, HTN presents for hematuria. 1. severe sepsis with gram negative bacteremia 2/2 UTI from chronic indwelling catheter - cont on broad spectrum abx until sensitivities reported. -Cipro has been added since his last UTI (< 1 month ago) revealed myroides which was only sensitive to cipro/levaquin. -sepsis resolved and has been afebrile. Once tolerating adequate PO fluids, will D/C fluids 2. UTI -gram neg rods on CX -see #1 3. BPH -per urology, cont indwelling catheter 4. gross hematuria - resolving 5. transaminitis likely 2/2 chronic Hep B infection and alcohol abuse 6. chronic Hepatitis B infection -obtain Hep B DNA -RUQ sono revealing mass like lesion in gallbladder vs sludge. -will evaluate further with imaging. 7. thrombocytopenia -likely due to chronic hep B and alcoholism 8. suspected heart failure -obtain ECHO -BNP > 700 9. macrocytic anemia -pending folate -B12 wnl 10. alcohol abuse - cont on ASE protocol -daily multivitamin, thiamine, folic acid 11. Acute kidney injury-resolved 12. blindness -request records from Dr. Montes -Will have CM see patient for resources 13. deconditioning -will discuss with family and determine if patient is willing to try and participate with PT. -pending OT eval. Dispo- pending clinical course but potentially in 1-2 days. <Azeb Samuel - Last Filed: 07/12/17 10:07> Attending Addendum - Attending Addendum Date/Time: 07/12/172120 I personally evaluated the patient and discussed the management with Dr. Samuel I agree with the History, Examination, Assessment and Plan documented above with any addition or exceptions noted below- Patient without complaints. Declined PT yesterday. Uncertain if he would be willing to go to a skilled unit. Afebrile VSS A/P: 1) Sepsis secondary to UTI with gram negative bacteria - continue current abx. Awaiting urine and blood culture results for bacterial identification. 2) Knee pain- will check xray. 3) alcohol use- no evidence of withdrawal/ DTs. Continue to monitor. 4) BPH- continue persaud and finasteride. <Amanda Alvarenga - Last Filed: 07/12/17 21:27>
[2017-07-12] MEDS: Mometasone/Formoterol 120 PUFF INHALER INH SCH ×2 (07:46→18:47)
--- NOTE | 2017-07-12 08:21 | CON ---
DATE OF CONSULTATION: 07/11/2017 HISTORY OF PRESENT ILLNESS: Mr. Pena is a poor historian. He is a 76-year- old male who was admitted to the intermediate care unit and sought consultation. He is blind. He has history of hypertension. Apparently, he had recent hematuria as well as some shortness of breath. He is a heavy drinker. It is unclear to me how he is a heavy drinker when he is blind , but I suppose family is buying him his alcohol. He is nonambulatory. Apparently, he has no regular physician follow up. Some of medications at admission. He was found to be bacteremic. He subsequently was admitted and placed in the Intermediate Care Unit. He is a do not resuscitate patient. PAST MEDICAL HISTORY: Remarkable for COPD. He denies being told he has had COPD, but he takes Symbicort he says at home. He has cerebrovascular accident in the past, heavy alcohol use, distant heavy tobacco use, marijuana use. As mentioned, he has been regularly seen a physician, who was on no medications on admission. FAMILY HISTORY: Negative for lung disease in early age. REVIEW OF SYSTEMS: That could be obtained was otherwise negative. He tells me that he feels fine and wants to go home. PHYSICAL EXAMINATION: VITAL SIGNS: He is afebrile, heart rate is 83, respiratory rate is 20, oximetry is 100%, blood pressure 131/84 this evening. This morning he was afebrile, heart rate 110, blood pressure 103/73. HEENT: He is blind. Extraocular movements cannot be assessed. NECK: Supple. No lymphadenopathy. LUNGS: Clear. HEART: Regular rhythm. ABDOMEN: Nontender. EXTREMITIES: Without asymmetry. LABORATORY DATA: White count 13.9, hemoglobin 12.6, platelets 57,000. Electrolytes were normal. Albumin is 2.3, AST is 450, ALT 112, bilirubin is 1.1. . IMPRESSION: 1. Gram negative bacteremia, likely associated with gram-negative urinary tract infection. 2. Alcoholic liver dysfunction, most likely. 3. Thrombocytopenia secondary to alcoholism, most likely. 4. Blindness. 5. Deconditioned and bedridden state. PLAN: He is stable to move out the Intermediate Care Unit. A 50-minute consult and greater than 50% of the time was spent coordinating care on the unit. CLARA
[2017-07-12] MEDS: Multivitamins, Adult 10 ML, Folic Acid 1 MG, Thiamine HCl 100 MG in Dextrose 5 %-0.45 %... IV SCH (08:23)
[2017-07-12] MEDS ORDERED: Folic Acid 1 MG TAB PO SCH (09:00)
--- NOTE | 2017-07-12 09:54 | ULT ---
RIGHT UPPER QUADRANT ULTRASOUND: HISTORY: Chronic hepatitis D infection. Acute liver injury. COMPARISON: 07/10/17 CT abdomen and pelvis. TECHNIQUE: Utilizing a multihertz transducer, sonographic imaging of the right upper quadrant is performed in th e longitudinal and transverse plane. FINDINGS: Pancreas is obscured by overlying bowel gas. Hepatic parenchyma has a normal echotexture. No hepatic mass or intrahepatic dilatation. Contour of the hepatic margin is maintained. Right hepatic lobe measures 15.1 cm. Within the lumen of the gallbladder, there is echogenic material without evidence of shadowing. Find ings may represent sludge. However, a mucosal-based lesion, such as mass, cannot be excluded. There is a small amount of pericholecystic fluid. Negative Easley's sign. Common bile duct diameter is 0.3 cm. Main portal vein is patent. Appropriate directional flow. Right Kidney: No hydronephrosis. 10.0 x 4.3 x 5.1 cm. A trace amount of perihepatic fluid. IMPRESSION: Echogenic material in the lumen of the gallbladder as described above. Differential considerations i nclude sludge or possible mucosal-based mass lesion. Correlate clinically for possible neoplasm. POS: [facility]
[2017-07-12] MEDS: Sodium Chloride 0.9% 1,000 ML IV SCH (14:20)
[2017-07-12 14:24] LABS: Folate,Hemolysate 223.9 ng/mL (Not Estab.); Hematocrit 34.8 % (37.5-51.0); RBC Folate Test Component 643 ng/mL (>498)
[2017-07-12] MEDS: Vancomycin HCl 1 GM in Premix Bag 1 BAG IVPB SCH (16:47)
[2017-07-12 18:18] LABS: Vancomycin, Trough 9.4 ug/mL
--- NOTE | 2017-07-12 18:53 | RAD ---
LEFT KNEE FOUR VIEWS: 07/12/17 HISTORY: Chronic knee pain. There are marked arthritic changes of the knee. There is severe medial compartment narrowing. Lesser changes of the lateral and patellofemoral compartments are seen. There is ossified bodies seen refractory grinder operator iorly felt to be in the posterior joint space. The bones appear somewhat demineralized. No acute proc ess. IMPRESSION: Severe arthritic changes of the knee. POS: [facility]
[2017-07-12] MEDS: Famotidine 40 MG/4 ML VIAL SLOW IVP SCH (22:00)
[2017-07-13] MEDS: Piperacillin/Tazobactam 4.5 GM in Sodium Chloride 0.9% 100 ML IVPB SCH ×3 (02:57→17:37)
[2017-07-13 04:52] LABS: ALT (SGPT) 49 U/L (8-55); AST (SGOT) 66 U/L (5-34); Albumin 2.1 g/dL (3.4-4.8); Alkaline Phosphatase 53 U/L (40-150); Anion Gap 6 mmol/L (10-20); BUN (Urea Nitrogen) 19 mg/dL (8.4-25.7); Bilirubin, Total 0.8 mg/dL (0.2-1.2); Calc. Creatinine Clearance 57 mL/min (70-130); Calcium 7.2 mg/dL (7.8-10.44); Carbon Dioxide 26 mmol/L (23-31); Chloride 103 mmol/L (98-107); Estimated GFR-MDRD Greater than 90; Glucose 97 mg/dL (83-110); Potassium 3.4 mmol/L (3.5-5.1); Protein, Total 4.1 g/dL (5.8-8.1); Sodium 132 mmol/L (136-145)
[2017-07-13] MEDS ORDERED: Vancomycin HCl 750 MG in Sodium Chloride 0.9% 250 ML 250 ML IVPB SCH (05:00)
[2017-07-13 05:11] LABS: Band 4 % (5-11); Eosinophils 2 % (0-10); Hemoglobin 10.7 g/dL (14.0-18.0); Lymphocytes 9 % (21-51); MDiff Complete? YES; Macrocytosis SLIGHT = 6-15 cells (100X) (0-5/hpf); Mean Corpuscular HGB CONC 34.8 g/dL (32.0-36.0); Mean Corpuscular Hemoglobin 39.2 pg (27.0-31.0); Mean Platelet Volume 9.2 fL (7.4-10.4); Monocytes 7 % (0-10); Neutrophil 78 % (42-75); PLT Morphology Comment Appears Decreased; Platelet Count 44 thou/uL (130-400); RBC Distribution Width 12.9 % (11.5-14.5); Red Blood Cell (RBC) Count 2.74 mill/uL (4.70-6.10); White Blood Cell (WBC) Count 7.1 thou/uL (4.8-10.8)
[2017-07-13] MEDS: Mometasone/Formoterol 120 PUFF INHALER INH SCH ×2 (06:24→18:42)
[2017-07-13] MEDS: Multivitamins, Adult 10 ML, Folic Acid 1 MG, Thiamine HCl 100 MG in Dextrose 5 %-0.45 %... IV SCH (08:43)
[2017-07-13] MEDS: Folic Acid 1 MG TAB PO SCH (08:46)
[2017-07-13] MEDS: Multivitamin W/ Minerals 1 TAB PO SCH (08:47)
[2017-07-13] MEDS: Sodium Chloride 0.9% 1,000 ML IV SCH ×2 (08:47→23:25)
--- NOTE | 2017-07-13 09:06 | PDOC.FM ---
- Subjective Subjective: Patient feeling okay this AM. He is pleasant. He does note only being able to eat or drink when someone is in the room to help him. Denies pain. - Objective MAR Reviewed: Yes Vital Signs & Weight: Vital Signs (12 hours) Temp Pulse Resp BP Pulse Ox 07/13/17 07:41 98.4 F 94 16 128/82 100 Weight Admit Weight 56.812 kg Weight 58.1 kg I&O: 07/12/17 07/13/17 07/14/17 06:59 06:59 06:59 Intake Total 650 2040 Output Total 530 275 Balance 120 1765 Result Diagrams: 07/13/17 03:49 07/13/17 03:49 <Azeb Samuel - Last Filed: 07/13/17 10:34> - Objective Vital Signs & Weight: Vital Signs (12 hours) Temp Pulse Resp BP Pulse Ox 07/13/17 18:43 96 07/13/17 18:42 96 07/13/17 08:00 98.4 F 94 16 100 07/13/17 07:41 98.4 F 94 16 128/82 100 Weight Admit Weight 56.812 kg Weight 58.1 kg I&O: 07/12/17 07/13/17 07/14/17 06:59 06:59 06:59 Intake Total 650 2040 Output Total 530 275 Balance 120 1765 Result Diagrams: 07/13/17 03:49 07/13/17 03:49 <Amanda Alvarenga - Last Filed: 07/13/17 19:02> Phys Exam - Physical Examination Constitutional: NAD HEENT: moist MMs Respiratory: no wheezing, no rales, no rhonchi distant breath sound, poor respiratory effort Cardiovascular: RRR, no significant murmur distant, faint heart sounds Gastrointestinal: soft, non-tender 2+ pittin gedema now isolated to bilateral feet Neurological: non-focal, moves all 4 limbs Psychiatric: A&O x 3 Skin: cap refill <2 seconds <Azeb Samuel - Last Filed: 07/13/17 10:34> Dx/Plan (1) Severe sepsis Code(s): A41.9 - SEPSIS, UNSPECIFIED ORGANISM; R65.20 - SEVERE SEPSIS WITHOUT SEPTIC SHOCK Status: Resolved (2) UTI (urinary tract infection) due to urinary indwelling catheter Code(s): T83.511A - I/I REACT D/T INDWELLING URETHRAL CATHETER, INIT; N39.0 - URINARY TRACT INFECTION, SITE NOT SPECIFIED Status: Suspected (3) Transaminitis Code(s): R74.0 - NONSPEC ELEV OF LEVELS OF TRANSAMNS & LACTIC ACID DEHYDRGNSE Status: Acute (4) Macrocytic anemia Code(s): D53.9 - NUTRITIONAL ANEMIA, UNSPECIFIED Status: Chronic (5) Alcohol abuse Code(s): F10.10 - ALCOHOL ABUSE, UNCOMPLICATED Status: Chronic (6) BPH (benign prostatic hyperplasia) Code(s): N40.0 - BENIGN PROSTATIC HYPERPLASIA WITHOUT LOWER URINRY TRACT SYMP Status: Chronic (7) HTN (hypertension) Code(s): I10 - ESSENTIAL (PRIMARY) HYPERTENSION Status: Chronic (8) Malnourished Code(s): E46 - UNSPECIFIED PROTEIN-CALORIE MALNUTRITION Status: Chronic (9) Peripheral edema Code(s): R60.9 - EDEMA, UNSPECIFIED Status: Chronic (10) Acute kidney injury Code(s): N17.9 - ACUTE KIDNEY FAILURE, UNSPECIFIED Status: Resolved (11) Thrombocytopenia Code(s): D69.6 - THROMBOCYTOPENIA, UNSPECIFIED Status: Acute - Plan Plan: 76 yr old male who presentsed to hospital and found to be in sepsis 1. sepsis bacteremia 2/2 providencia rettgeri- now improved. susceptible to zosyn and cipro. Can DC vanc. Will run case by ID. 2. 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 Still an additional Gram neg danielle to be determined in urine cx. 3. hypokalemia-replete 4. gallbladder lesion- pending Abdominal MRI 5. transaminitis - improving, thought to be 2/2 chronic hepatitis B and alcoholism 6. chronic Hep B- pending Hep B PCR quant 7. thrombocytopenia- likely 2/2 chronic liver disease/ alcoholism 8. malnourished- supplements provided. 9. poor urinary output- kidney function wnl, This is worsened after fluids decreased. Have encouraged patient to drink everytime someone enters room. Have also given 500 ml bolus. 10. BPH- chronic indwelling catheter. Awaiting records from Dr. Cho. 11. macrocytic anemia- b12 wnl. pending RBC folate. 12. blindness 13. alcohol abuse- cessation counseling <Azeb Samuel - Last Filed: 07/13/17 10:34> Attending Addendum - Attending Addendum Date/Time: 07/13/17 [id number] I personally evaluated the patient and discussed the management with Dr. Samuel I agree with the History, Examination, Assessment and Plan documented above with any addition or exceptions noted below- Patient without complaints. Patient states that appetite improving. Afebrile VSS. A/P: 1) Sepsis secondary to Providencia UTI- trasnitioned to po cipro; appreciate recommendations from Dr. Torres. Will need follow-up with Dr. Cho post-hospitalization. 2) Chronic Hep B infection- Hep B PCR pending. 3) Gallbladder lesion- MRI c/w sludge or gallstone; no need for further workup unless patient becomes symptomatic. 4) Deconditioning- declines SNU placement; anticipate d/c soon. <Amanda Alvarenga - Last Filed: 07/13/17 19:02>
[2017-07-13] MEDS ORDERED: Sodium Chloride 0.9% 500 ML IV SCH (09:15)
[2017-07-13] MEDS ORDERED: Aspirin 81 mg Enteric Coated Tablet PO SCH (10:45)
[2017-07-13] MEDS ORDERED: Finasteride 5 MG TAB PO SCH (10:45)
--- NOTE | 2017-07-13 12:38 | MRI ---
MRI ABDOMEN WITHOUT AND WITH CONTRAST: Comparison: Gallbladder ultrasound, 07-12-17. CT abdomen/pelvis, 07-10-17. History: Possible gallbladder mass. Evaluate further. Technique: Multiplanar, multisequence MRI images were obtained of the abdomen without and with IV con trast. FINDINGS: This exam is very limited secondary to motion artifact. There is a filling defect in the dependent as pect of the gallbladder, best seen on the T2 images. This could represent small stones or sludge. Aft er administration of contrast, no enhancement of this region is seen to suggest that this an enhancin g gallbladder mass. As stated above, evaluation is limited secondary to motion artifact. There is a tiny subcentimeter focus of high T2 signal in each kidney which likely represents a small cyst. No focal liver lesions are seen. The adrenal glands, spleen, and pancreas are unremarkable. No abdominal adenopathy is seen. No marrow signal abnormality is present. There are small bilateral p leural effusions. IMPRESSION: 1. The material within the gallbladder likely represents either sludge or nonshadowing stones. No enh ancement is seen to suggest that this is an enhancing mass. However, evaluation is limited. On the pr ior ultrasound, no obvious flow was seen within this mass like region in the dependent gallbladder on the color flow images, helping confirm that this lesion is not likely a tumor. 2. Tiny bilateral renal cysts. POS: [facility]
--- NOTE | 2017-07-13 14:03 | CON ---
DATE OF CONSULTATION: 07/13/2017 REASON FOR CONSULTATION: Urosepsis. HISTORY OF PRESENT ILLNESS: A 76-year-old who has a history of chronic blindness of uncertain etiology and progressive functional impairment having lost his ambulatory status about 6 months before admission and chronic hepatitis B as well as prior CVA which probably led to his functional impairment , admitted with gross hematuria following exchange of his Pereira catheter. The patient has BPH and a Pereira catheter inserted by Dr. Cho, urologist, at [facility] about 3 months before admission. The catheter has been exchanged once a month and the last exchange was a few days before admission. Following development of gross hematuria, he developed a fever and was brought to the emergency room and admitted. The patient had reported no headaches, no vomiting or respiratory symptoms and he was constipated and no skin disorder had been reported. He has significant cognitive impairment and the personal account has limited accuracy. MEDICAL HISTORY: Includes BPH which has been managed with a Pereira catheter. I do not believe that there is any plan for any invasive procedure at this point in time on the part of the urologist. History of alcoholic beverage abuse, prior smoking, prior CVA with weakness in lower extremities and wheelchair bound state for the past six months. Chronic blindness, apparently one of the eyes function was lost due to the CVA. The other is unclear with the reason for it. There is a listed diagnosis of COPD as well. SOCIAL HISTORY: He lives in [place] with and another relative, who help care for him. Still drinking. According to the , drinks about 4 drinks per day, but in the emergency room visit 10 drinks per day is listed. ALLERGIES: None. MEDICATIONS: Had been on Bystolic, finasteride, Norvasc, Benicar, triamterene, hydrochlorothiazide, Symbicort, aspirin. Here he is receiving DuoNeb, Ecotrin, Cipro, Proscar, Folvite, Theragran, omeprazole and Zosyn. FAMILY HISTORY: Noncontributory. PERSONAL PHYSICIAN: Abhilash Thomas M.D. PHYSICAL EXAMINATION: VITAL SIGNS: Temperature max of 101 on admission in the emergency room, has been afebrile since. Blood pressure 120/80, pulse 94, respirations 16, O2 sat 100. SKIN: With no areas of skin breakdown. The patient has a Pereira catheter in place and a peripheral IV access. The urine is clear. There is no lymphadenopathy. HEENT: Ocular movements are conjugate. Pupils are 2 mm. There is opacification of the left intraocular media. Conjunctivae are pale. Nasal passages are patent. Oral cavity with numerous missing teeth. Remainder ones with a lot of decay. NECK: Supple, no jugular venous distention. LUNGS: With symmetric air entry, no crackles or wheezing. HEART: S1, S2, regular rate without murmurs. ABDOMEN: Jimenez and somewhat distended, question of ascites. No hepatosplenomegaly detected. No bladder distention. The genital exam was not remarkable. Patient has atrophy of the musculature of the lower extremities and some degree of ankylosis of the knees, limitation of range of motion of the ankles. He is able to wiggle his toes. His spinal responses are flexure. No clonus. EXTREMITIES: Pulses are faintly palpable on dorsalis pedis. Cap refill is less than 3 seconds. NEUROLOGIC: He is awake. He knows his name and knew he was in the hospital, could not remember the events that led to his admission, though he did not know the date, was able to follow commands. LABORATORY DATA: White cell count was 15 down to 7.1, hemoglobin down to 10.7, MCV 113, platelets 144,000 with 78% neutrophils. Bands are down from 34 to 4. INR 1.6 and sodium 137-132, creatinine 0.93, bilirubin 1.1. AST down from 450- 66, ALT down from 112-49, albumin 2.3 and now 2.1. Urinalysis with greater than 50 WBCs, vancomycin trough 9.4. Serology with hepatitis surface antigen reactive. Hepatitis core total antibody reactive. Hepatitis surface antibody nonreactive, Hepatitis C nonreactive. HIV nonreactive, RPR nonreactive, hepatitis A positive for a total antibody. Microbiology with 2/2 sets of blood cultures with Providencia rettgeri 2 different strains. The urine culture also with single bacterium species, susceptibility of the Providencia include a susceptibility to quinolones, resistant to third generation cephalosporins and resistant to Bactrim in one of them. An abdomen ultrasound was completed, as well as an abdomen and pelvis CT. The ultrasound showed no hydronephrosis, normal hepatic echotexture. There is some echogenic material within the lumen of the gallbladder. The abdomen and pelvis CT showed fat stranding, question of pneumatosis, distended bladder with enlarged prostate and emphysema. Chest x -ray with no evidence of acute cardiopulmonary disease. ASSESSMENT: 1. Alcoholism. 2. Chronic hepatitis B infection. 3. Chronic liver disease, possible cirrhosis. 4. Benign prostatic hypertrophy, being managed conservatively with Pereira catheter insertion with urosepsis. Two different strains Providencia. Functional impairment with paraparesis and inability to ambulate for the past six months. DISCUSSION: The patient developed urosepsis from the recent Pereira exchange. The rates of invasive urinary tract infection associated with Pereira catheters will be an ongoing issue in the future for this patient and the attending physician may consider placement of a suprapubic catheter instead. Alternately review of the notes from Dr. Cho at [facility] would be recommended to see what kind of workup that he carried out and if a voiding trial was attempted with treatment for the BPH. The patient has chronic hepatitis B surface, positive hepatitis E antigen, negative serology and I recommend checking his hepatitis B, DNA, PCR and then deciding if he would benefit from hepatitis B treatment antiviral with chronic antiviral compounds. I agree with ciprofloxacin, may transition to oral regimen, discontinue Zosyn and continue treating for approximately 2 weeks. The Sphingomonas is probably not playing a role in the systemic symptoms that led to patient's admission and I do not think it needs to be targeted by the regimen prescribed for discharge planning. MTDD
[2017-07-13 15:25] LABS: Hep B Surface AG-Rflx Sendout Confirm. indicated (Negative)
[2017-07-13] MEDS: Ciprofloxacin 500 MG TAB PO SCH (21:14)
[2017-07-14] MEDS: Piperacillin/Tazobactam 4.5 GM in Sodium Chloride 0.9% 100 ML IVPB SCH (02:56)
[2017-07-14 05:19] LABS: ALT (SGPT) 39 U/L (8-55); AST (SGOT) 46 U/L (5-34); Albumin 2.1 g/dL (3.4-4.8); Alkaline Phosphatase 59 U/L (40-150); Anion Gap 6 mmol/L (10-20); BUN (Urea Nitrogen) 13 mg/dL (8.4-25.7); Bilirubin, Total 0.8 mg/dL (0.2-1.2); Calc. Creatinine Clearance 67 mL/min (70-130); Calcium 7.2 mg/dL (7.8-10.44); Carbon Dioxide 26 mmol/L (23-31); Chloride 107 mmol/L (98-107); Estimated GFR-MDRD Greater than 90; Globulin 2.2 g/dL (2.4-3.5); Glucose 102 mg/dL (83-110); Magnesium 1.3 mg/dL (1.6-2.6); Potassium 3.3 mmol/L (3.5-5.1); Protein, Total 4.3 g/dL (5.8-8.1); Sodium 136 mmol/L (136-145)
[2017-07-14 05:36] LABS: Band 4 % (5-11); Eosinophils 4 % (0-10); Hemoglobin 11.1 g/dL (14.0-18.0); Lymphocytes 20 % (21-51); MDiff Complete? YES; Macrocytosis SLIGHT = 6-15 cells (100X) (0-5/hpf); Mean Corpuscular HGB CONC 35.1 g/dL (32.0-36.0); Mean Corpuscular Hemoglobin 39.1 pg (27.0-31.0); Mean Platelet Volume 9.3 fL (7.4-10.4); Monocytes 9 % (0-10); Neutrophil 63 % (42-75); PLT Morphology Comment Appears Decreased; Platelet Count 49 thou/uL (130-400); RBC Distribution Width 12.9 % (11.5-14.5); Red Blood Cell (RBC) Count 2.85 mill/uL (4.70-6.10); White Blood Cell (WBC) Count 5.6 thou/uL (4.8-10.8)
[2017-07-14] MEDS: Ciprofloxacin 500 MG TAB PO SCH ×2 (05:36→20:41)
[2017-07-14] MEDS: Mometasone/Formoterol 120 PUFF INHALER INH SCH ×2 (06:24→19:28)
--- NOTE | 2017-07-14 06:49 | PDOC.FM ---
- Subjective Subjective: Patient is doing well this morning. Denies any pain, fever, N/V, abdominal pain. He slept well. He is awaiting breakfast this morning. No acute events overnight. He reports he has tried to increase PO intake but difficult wiht loss of vision. - Objective MAR Reviewed: Yes Vital Signs & Weight: Vital Signs (12 hours) Temp Pulse Resp BP Pulse Ox 07/14/17 06:25 96 07/14/17 06:24 80 16 96 07/14/17 03:50 100 07/13/17 20:00 98.8 F 85 18 97 07/13/17 19:47 98.8 F 85 18 125/77 100 Weight Admit Weight 56.812 kg Weight 58.3 kg I&O: 07/12/17 07/13/17 07/14/17 06:59 06:59 06:59 Intake Total 650 2040 790 Output Total 530 275 250 Balance 120 1765 540 Result Diagrams: 07/14/17 04:23 07/14/17 04:23 <Lee Ann Perla - Last Filed: 07/14/17 11:58> - Objective Vital Signs & Weight: Vital Signs (12 hours) Temp Pulse Resp BP Pulse Ox 07/14/17 11:28 98.3 F 87 16 161/97 H 96 07/14/17 08:00 98.6 F 79 18 95 07/14/17 07:22 98.6 F 79 18 147/90 H 95 07/14/17 06:25 96 07/14/17 06:24 80 16 96 07/14/17 03:50 100 Weight Admit Weight 56.812 kg Weight 58.3 kg I&O: 07/13/17 07/14/17 07/15/17 06:59 06:59 06:59 Intake Total 2040 790 Output Total 275 250 Balance 1765 540 Result Diagrams: 07/14/17 04:23 07/14/17 04:23 <Eugene Sim - Last Filed: 07/14/17 12:10> Phys Exam - Physical Examination Constitutional: NAD visual loss bilaterally Respiratory: no wheezing, no rales, clear to auscultation bilateral Cardiovascular: RRR, no significant murmur Gastrointestinal: soft, non-tender, positive bowel sounds Musculoskeletal: no edema, pulses present Psychiatric: normal affect, A&O x 3 <Lee Ann Perla - Last Filed: 07/14/17 11:58> Dx/Plan (1) UTI (urinary tract infection) due to urinary indwelling catheter Code(s): T83.511A - I/I REACT D/T INDWELLING URETHRAL CATHETER, INIT; N39.0 - URINARY TRACT INFECTION, SITE NOT SPECIFIED Status: Suspected (2) Thrombocytopenia Code(s): D69.6 - THROMBOCYTOPENIA, UNSPECIFIED Status: Acute (3) Transaminitis Code(s): R74.0 - NONSPEC ELEV OF LEVELS OF TRANSAMNS & LACTIC ACID DEHYDRGNSE Status: Acute (4) Alcohol abuse Code(s): F10.10 - ALCOHOL ABUSE, UNCOMPLICATED Status: Chronic (5) BPH (benign prostatic hyperplasia) Code(s): N40.0 - BENIGN PROSTATIC HYPERPLASIA WITHOUT LOWER URINRY TRACT SYMP Status: Chronic - Plan Plan: Sepsis bacteremia 2/2 providencia rettgeri- - now improved - continue Cipro PO per Dr. 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 Still an additional Gram neg danielle to be determined in urine cx. - Will continue with Cipro PO per Dr. Torres Hypokalemia - replete and recheck tomorrow Hypomagnesemia - replete and recheck tomorrow Gallbladder lesion - MRI confirms no mass apparent Transaminitis - improving, thought to be 2/2 chronic hepatitis B and alcoholism Chronic Hep B - pending Hep B PCR quant Thrombocytopenia - likely 2/2 chronic liver disease/ alcoholism Malnourished - supplements provided. Poor urinary output - kidney function wnl, This is worsened after fluids decreased. Have encouraged patient to drink everytime someone enters room. - s/p 500ml bolus yesterday. Repeat today. BPH - chronic indwelling catheter - per records from Dr. Olsen, needs outpatient follow up for voiding trial - restarted home Finasteride and Flomax yesterday. Macrocytic anemia - b12 wnl. pending RBC folate. - likely 2/2 bone marrow suppression from alcohol intake. Blindness - awaiting records from Dr. Montes Alcohol abuse - cessation counseling <Lee Ann Perla - Last Filed: 07/14/17 11:58> Attending Addendum - Attending Addendum Date/Time: 07/14/17 6622 I personally evaluated the patient and discussed the management with Dr. Perla. I agree with the History, Examination, Assessment and Plan documented above with any addition or exceptions noted below. Patient overall doing well. He has been transitioned to oral Cipro. No evidence of worsening infection. He will need to follow up with Urology outpatient about his chronic persaud use. He has had some decreased PO fluid intake and decrease UOP but with normal renal labs. Will give gentle fluids and having nursing assist patient with eating/drinking as he is functionally blind. Consider discharge tomorrow if doing well. <Eugene Sim - Last Filed: 07/14/17 12:10>
[2017-07-14] MEDS ORDERED: Magnesium Sulfate 2 GM in Sodium Chloride 0.9% 100 ML IVPB SCH (07:30)
[2017-07-14] MEDS: Aspirin 81 mg Enteric Coated Tablet PO SCH (07:50)
[2017-07-14] MEDS: Finasteride 5 MG TAB PO SCH (07:50)
[2017-07-14] MEDS: Multivitamin W/ Minerals 1 TAB PO SCH (07:50)
[2017-07-14] MEDS: Potassium Chloride 20 MEQ TAB PO SCH ×2 (07:50→11:05)
[2017-07-14] MEDS: Folic Acid 1 MG TAB PO SCH (07:50)
[2017-07-14] MEDS ORDERED: Sodium Chloride 0.9% 500 ML IV SCH (09:15)
[2017-07-14 20:08] LABS: HBV as IU/mL 260 IU/mL (.); Log 10 HBV as IU/mL 2.415 (.)
[2017-07-14] MEDS: Sodium Chloride 0.9% 1,000 ML IV SCH (20:41)
[2017-07-15 06:01] LABS: ALT (SGPT) 34 U/L (8-55); AST (SGOT) 31 U/L (5-34); Albumin 2.2 g/dL (3.4-4.8); Alkaline Phosphatase 57 U/L (40-150); Anion Gap 6 mmol/L (10-20); BUN (Urea Nitrogen) 8 mg/dL (8.4-25.7); Bilirubin, Total 0.6 mg/dL (0.2-1.2); Calc. Creatinine Clearance 72 mL/min (70-130); Calcium 7.3 mg/dL (7.8-10.44); Carbon Dioxide 24 mmol/L (23-31); Chloride 110 mmol/L (98-107); Eosinophils 3 % (0-10); Estimated GFR-MDRD Greater than 90; Globulin 2.3 g/dL (2.4-3.5); Glucose 101 mg/dL (83-110); Hemoglobin 11.4 g/dL (14.0-18.0); Lymphocytes 14 % (21-51); MDiff Complete? YES; Magnesium 1.7 mg/dL (1.6-2.6); Mean Corpuscular HGB CONC 34.5 g/dL (32.0-36.0); Mean Corpuscular Hemoglobin 38.4 pg (27.0-31.0); Mean Platelet Volume 8.7 fL (7.4-10.4); Monocytes 10 % (0-10); Neutrophil 73 % (42-75); PLT Morphology Comment Appears Decreased; Platelet Count 64 thou/uL (130-400); Potassium 3.9 mmol/L (3.5-5.1); Protein, Total 4.5 g/dL (5.8-8.1); RBC Distribution Width 13.1 % (11.5-14.5); Red Blood Cell (RBC) Count 2.97 mill/uL (4.70-6.10); Sodium 136 mmol/L (136-145); White Blood Cell (WBC) Count 6.3 thou/uL (4.8-10.8)
[2017-07-15] MEDS: Ciprofloxacin 500 MG TAB PO SCH ×2 (06:17→20:15)
--- NOTE | 2017-07-15 06:29 | PDOC.FM ---
- Subjective Subjective: Patient doing well this morning. Had increased PO intake yesterday. No complaints and no overnight events. - Objective MAR Reviewed: Yes Vital Signs & Weight: Vital Signs (12 hours) Temp Pulse Resp BP Pulse Ox 07/15/17 06:17 97.8 F 74 18 145/81 H 95 07/14/17 20:00 97.9 F 73 16 97 07/14/17 19:28 73 16 96 Weight Admit Weight 56.812 kg Weight 57.4 kg I&O: 07/13/17 07/14/17 07/15/17 06:59 06:59 06:59 Intake Total 2040 790 2480 Output Total 275 250 650 Balance 5172 347 0907 Result Diagrams: 07/15/17 04:45 07/15/17 04:45 <Lee Ann Perla - Last Filed: 07/15/17 10:15> - Objective Vital Signs & Weight: Vital Signs (12 hours) Temp Pulse Resp BP BP Pulse Ox 07/15/17 07:54 98.0 F 87 18 154/99 H 98 07/15/17 07:37 68 12 07/15/17 06:17 97.8 F 74 18 145/81 H 95 Weight Admit Weight 56.812 kg Weight 57.4 kg I&O: 07/14/17 07/15/17 07/16/17 06:59 06:59 06:59 Intake Total 790 2480 Output Total 250 650 Balance 540 1830 Result Diagrams: 07/15/17 04:45 07/15/17 04:45 <Eugene Sim - Last Filed: 07/15/17 11:04> Phys Exam - Physical Examination Constitutional: NAD Respiratory: no wheezing, no rales, clear to auscultation bilateral Cardiovascular: RRR, no significant murmur Gastrointestinal: soft, non-tender Musculoskeletal: no edema Neurological: moves all 4 limbs Psychiatric: normal affect, A&O x 3 <Lee Ann Perla - Last Filed: 07/15/17 10:15> Dx/Plan (1) UTI (urinary tract infection) due to urinary indwelling catheter Code(s): T83.511A - I/I REACT D/T INDWELLING URETHRAL CATHETER, INIT; N39.0 - URINARY TRACT INFECTION, SITE NOT SPECIFIED Status: Suspected (2) Thrombocytopenia Code(s): D69.6 - THROMBOCYTOPENIA, UNSPECIFIED Status: Acute (3) Transaminitis Code(s): R74.0 - NONSPEC ELEV OF LEVELS OF TRANSAMNS & LACTIC ACID DEHYDRGNSE Status: Acute (4) Alcohol abuse Code(s): F10.10 - ALCOHOL ABUSE, UNCOMPLICATED Status: Chronic (5) BPH (benign prostatic hyperplasia) Code(s): N40.0 - BENIGN PROSTATIC HYPERPLASIA WITHOUT LOWER URINRY TRACT SYMP Status: Chronic - Plan Plan: Sepsis bacteremia 2/2 providencia rettgeri- - now improved - continue Cipro PO per Dr. 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 Still an additional Gram neg danielle to be determined in urine cx. - Will continue with Cipro PO per Dr. Torres - oupatient voiding trial to remove persaud in an effort to prevent recurrence of UTI Hypokalemia, resolved Hypomagnesemia, resovled Gallbladder lesion - MRI confirms no mass apparent Transaminitis, resolved - thought to be 2/2 chronic hepatitis B and alcoholism Chronic Hep B - Hep B DNA evidence of infection - F/u with PCP Thrombocytopenia - likely 2/2 chronic liver disease/ alcoholism Malnourished - supplements provided. Poor urinary output - kidney function wnl, This is worsened after fluids decreased. Have encouraged patient to drink everytime someone enters room. - s/p 500ml bolus yesterday. - improved today. BPH - chronic indwelling catheter - per records from Dr. Olsen, needs outpatient follow up for voiding trial - continue home Finasteride and Flomax yesterday. Macrocytic anemia - b12 wnl. pending RBC folate. - likely 2/2 bone marrow suppression from alcohol intake. Blindness - awaiting records from Dr. Montes Alcohol abuse - cessation counseling Dispo: d/c home today. <Lee Ann Perla - Last Filed: 07/15/17 10:15> Attending Addendum - Attending Addendum Date/Time: 07/15/17 1103 I personally evaluated the patient and discussed the management with Dr. Perla. I agree with the History, Examination, Assessment and Plan documented above with any addition or exceptions noted below. Patient doing well. Improved urine output with improved intake yesterday. He will be discharged home today per his request with services. Continue Cipro therapy and needs to follow up outpatient with his PCP and Urologist. Also will need referral to further evaluate and consider treatment of his chronic Hep B infection. <Eugene Sim - Last Filed: 07/15/17 11:04>
[2017-07-15] MEDS: Mometasone/Formoterol 120 PUFF INHALER INH SCH ×2 (07:37→18:37)
[2017-07-15] MEDS: Multivitamin W/ Minerals 1 TAB PO SCH (08:46)
[2017-07-15] MEDS: Aspirin 81 mg Enteric Coated Tablet PO SCH (08:46)
[2017-07-15] MEDS: Finasteride 5 MG TAB PO SCH (08:46)
[2017-07-15] MEDS: Folic Acid 1 MG TAB PO SCH (08:46)
[2017-07-15] MEDS ORDERED: ISOVUE-370 76%-LOCM 1 ML ONE (13:35)
[2017-07-15] MEDS ORDERED: Labetalol HCl 100 MG/20 ML VIAL SLOW IVP PRN (14:21)
[2017-07-15] MEDS ORDERED: Labetalol HCl 100 MG/20 ML VIAL SLOW IVP SCH (14:30)
[2017-07-15 15:00] LABS: Troponin I 0.026 ng/mL (< 0.028)
[2017-07-15 15:02] LABS: Actual Bicarbonate (HCO3a) 23.1 mEq/L (22-26); Base Excess (BEa) -1.6 mEq/L (0 (+/-) 2.5); CO2 Tension 39.4 mmHg (35.0-45.0); O2 Tension (PaO2) 153.4 mmHg (80.0-100.0); pH, Arterial 7.39 (7.35-7.45)
[2017-07-15 15:03] LABS: Analyzer IN Cardio OR; Calcium, Ionized 1.2 mmol/L (1.12-1.30); Hemoglobin (Hb) 13.4 g/dL (14.0-18.0); Puncture Site LBA
[2017-07-15 15:53] LABS: CKMB 0.9 ng/mL (0-6.6)
--- NOTE | 2017-07-15 16:09 | RAD ---
PORTABLE AP CHEST: Date: 07/15/17 HISTORY: Increasing shortness of breath. COMPARISON: 07/10/17. FINDINGS: The cardiac silhouette and pulmonary vasculature are within normal limits. There appears to be relati ve lucency within the upper lung zones and findings could potentially be related to emphysematous tana nges. The lungs are expanded. There is suboptimal evaluation of the retrocardiac region at the medial left lung base, but there is suggestion of increased density, which could be related to either atele ctasis or pneumonia at the medial left lung base. Vascular calcifications seen in thoracic aorta. The re is nonspecific gaseous distention of loops of small bowel in the upper abdomen. IMPRESSION: Suboptimal evaluation of the medial left lung base due to overlying cardiac silhouette, but there is patchy increased density. Atelectasis versus pneumonia at the left lung base is suggested. Follow-up PA and lateral chest x-ray is recommended for further evaluation. POS: SERGIO
[2017-07-15] MEDS: Sodium Chloride 0.9% 1,000 ML IV SCH (16:48)
[2017-07-15] MEDS ORDERED: Heparin 10,000 UNITS/ 10 ML VIAL SLOW IVP SCH (17:00)
[2017-07-15 17:44] LABS: Platelet Count 77 thou/uL (130-400)
--- NOTE | 2017-07-15 17:45 | CT ---
CTA OF THE THORAX UTILIZING IV CONTRAST AND 3D REFORMATTED IMAGING: Date: 07/15/17 INDICATION: Sudden onset of high blood pressure, diaphoresis, and difficulty breathing with elevated D-Dimer of 7 .18. COMPARISON: Chest radiograph dated 07/15/[address] abdomen and pelvis dated 07/10/17. FINDINGS: There are partially occlusive thrombi seen within the segmental pulmonary artery to the posterior rig ht lower lobe on image 82 of series 2. An additional occlusive thrombus is seen within the posteromed ial segmental arterial branch of the right lower lobe on image 94 of series 2. There is partially occ lusive thrombus involving the posteromedial segmental pulmonary artery of the left lower lobe on imag e 87 of series 2. No appreciable emboli is seen within the lobar and segmental pulmonary arteries of left upper lobe, lingula, right middle lobe, or right upper lobe. There is slight prominence of the r ight ventricle and right atrium with reflux of contrast within the hepatic veins which can be seen wi th changes of early right heart strain. There are new mild to moderate bilateral pleural effusions. T here is severe emphysema. 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 Th ere is ectasia of the ascending artery measuring 4.1 cm. Visualized upper abdomen is unremarkable for acute abnormality. There is scattered degenerative change. IMPRESSION: 1. Pulmonary emboli seen within the segmental pulmonary branches of the lower lobes bilaterally as d etailed above. 2. There is prominence of the right ventricle and right atrium with reflux of contrast in the hepati c veins which can be seen with right heart strain. There is also interval development of mild to mode rate bilateral pleural effusions which have developed since 07/10/17. 3. Severe emphysema. 4. 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 Findings called to Dr. Perla at 1638 hours on 07/15/17. CODE CR. POS: VANESA
[2017-07-15 18:03] LABS: CKMB 0.9 ng/mL (0-6.6); Troponin I 0.017 ng/mL (< 0.028)
--- NOTE | 2017-07-15 18:24 | ULT ---
BILATERAL LOWER EXTREMITY DOPPLER VENOUS ULTRASOUND: Date: 07/15/17 INDICATION: History of bilateral Pes. TECHNIQUE: Brown scale, color Doppler, and vascular duplex with spectral analysis was performed of the deep venou s structures of the bilateral lower extremities. The common femoral vein, superficial femoral vein, p roximal greater saphenous vein, proximal greater profunda vein, popliteal, and posterior tibial veins were assessed. FINDINGS: Normal compression, flow, and augmentation was seen within the deep venous structures of the bilatera l lower extremities. IMPRESSION: No evidence of deep venous thrombosis within the bilateral lower extremities. POS: SERGIO
[2017-07-15] MEDS: Heparin 25,000 units/D5W 500 ML IVPB SCH (18:25)
[2017-07-16] MEDS: Ciprofloxacin 500 MG TAB PO SCH ×2 (05:11→21:51)
[2017-07-16] MEDS: Sodium Chloride 0.9% 1,000 ML IV SCH (05:14)
--- NOTE | 2017-07-16 06:28 | PDOC.EVN ---
Event Note - Event Note Event Note: Was called to the bedside from nurse around 1600 07/15. Patient sat on the edge of bed and developed difficulty breathing, hypertension, tachycardia into the 150s, and desaturation to 82%. patients o2 sats improved to 100% on 2L. Shortly after he was laid back in bed his vitals improved although still requiring o2, tachycardic, and hypertensive. An EKG was performed which showed new inversion of T waves in leads 2 and 3. Troponin was drawn which was normal, CXR showed only mild pleural effusions, and d-dimer was elevated to 7. CTA was performed and showed bilateral partially occlusive PEs with evidence of R heart strain. Dr. Arellano was consulted and recommended heparin drip overnight and possible IVC placement. Patient was not on anticoagulation during his stay here in the hospital because his platelets were continually below 50 and he is a big fall risk with comorbidities of blindness and being wheelchair bound. <Lee Ann Perla - Last Filed: 07/16/17 06:16> Attending Addendum - Attending Addendum Date/Time: 07/15/17 1600 I personally evaluated the patient and discussed the management with Dr. Perla. I agree with the History, Examination, Assessment and Plan documented above with any addition or exceptions noted below. Patient with respiratory and cardiovascular abnormalities noted upon change in position. Labs checked, including D-dimer which was elevated. CTA obtained that revealed likely new onset b/l PE with some CTA evidence of R ventricular strain. Soon after the episode of decompensation, patient was noted to have HR 83, BP 123/80s, O2 sats 99% on 2L by NC. His respiratory distress had completely resolved and he was stable at that time. Transferred to telemetry for further monitoring. He was placed on therapeutic heparin drip for the evening with plans to discuss IVC filter placement tomorrow. He is poor anticoagulation candidate due to blindness and high fall risk, and ppx was held from the time of admission to the hospital due to fairly significant thrombocytopenia. Our team was under the impression he was OOB with therapy services but upon review of chart, he was discharged from PT services due to patient non-compliance. His Echo obtained prior to the above mentioned event suggests the possibility of pulmonary HTN or at least elevated pulmonary artery pressures. I would suspect that due to his poor mobility status that he has had chronic clot burden leading to these elevated pressures but that is not able to be proven at current time with the studies that have been performed. <Eugene Sim R - Last Filed: 07/16/17 08:07>
[2017-07-16 06:45] LABS: #Eosinphils 0.2 thou/uL (0.0-0.7); #Lymphocytes 0.8 thou/uL (1.20-3.40); #Monocytes 0.7 thou/uL (0.11-0.59); #Neutrophils 4.1 thou/uL (1.40-6.50); %Basophils 0.2 % (0.0-1.0); %Lymphocytes 14.4 % (21.0-51.0); %Monocytes 11.3 % (0.0-10.0); Hemoglobin 10.3 g/dL (14.0-18.0); Mean Corpuscular HGB CONC 34.6 g/dL (32.0-36.0); Mean Corpuscular Hemoglobin 39.1 pg (27.0-31.0); Mean Platelet Volume 8.3 fL (7.4-10.4); Platelet Count 102 thou/uL (130-400); RBC Distribution Width 13.1 % (11.5-14.5); Red Blood Cell (RBC) Count 2.64 mill/uL (4.70-6.10); White Blood Cell (WBC) Count 5.8 thou/uL (4.8-10.8)
[2017-07-16 07:06] LABS: ALT (SGPT) 26 U/L (8-55); AST (SGOT) 24 U/L (5-34); Alkaline Phosphatase 50 U/L (40-150); Anion Gap 6 mmol/L (10-20); BUN (Urea Nitrogen) 5 mg/dL (8.4-25.7); Bilirubin, Total 0.5 mg/dL (0.2-1.2); Calc. Creatinine Clearance 96 mL/min (70-130); Calcium 7.2 mg/dL (7.8-10.44); Carbon Dioxide 23 mmol/L (23-31); Chloride 109 mmol/L (98-107); Estimated GFR-MDRD Greater than 90; Globulin 2.1 g/dL (2.4-3.5); Glucose 99 mg/dL (83-110); Potassium 3.6 mmol/L (3.5-5.1); Protein, Total 4.1 g/dL (5.8-8.1); Sodium 134 mmol/L (136-145)
[2017-07-16 07:36] LABS: MDiff Complete? YES; Macrocytosis MODERATE=16-30 cells (100X) (0-5/hpf); PLT Morphology Comment Appears Decreased; Polychromasia SLIGHT = 2-3 cells (100X) (0-2/hpf)
[2017-07-16] MEDS: Mometasone/Formoterol 120 PUFF INHALER INH SCH ×2 (07:43→19:00)
[2017-07-16] MEDS: Multivitamin W/ Minerals 1 TAB PO SCH (08:32)
[2017-07-16] MEDS: Folic Acid 1 MG TAB PO SCH (08:32)
[2017-07-16] MEDS: Finasteride 5 MG TAB PO SCH (08:32)
[2017-07-16] MEDS: Aspirin 81 mg Enteric Coated Tablet PO SCH (08:32)
--- NOTE | 2017-07-16 08:36 | PDOC.FM ---
- Subjective Subjective: Patient feeling well this AM. Discharge delayed after finding of bilateral PEs after sitting upright for D/C. Denies SOB, CP. - Objective MAR Reviewed: Yes Vital Signs & Weight: Vital Signs (12 hours) Temp Pulse Resp BP Pulse Ox 07/16/17 07:42 86 15 97 07/16/17 04:17 98.5 F 88 16 110/68 97 07/16/17 00:07 83 16 100 Weight Admit Weight 56.812 kg Weight 67.132 kg I&O: 07/15/17 07/16/17 07/17/17 06:59 06:59 06:59 Intake Total 2480 1670 Output Total 650 450 Balance 1830 1220 Result Diagrams: 07/16/17 06:22 07/16/17 06:22 Additional Labs: Laboratory Tests 07/10/17 07/11/17 07/12/17 16:35 06:45 11:46 APTT D-Dimer ABG pH ABG pCO2 ABG pO2 CK-MB (CK-2) Troponin I Hep Bs Antigen Reactive H Hep B Core Total Ab Reactive H Hep B DNA, Quant log10 2.415 Hep B DNA (Units/mL) 260 07/15/17 07/15/17 07/15/17 14:12 14:26 14:29 APTT D-Dimer 7.18 H ABG pH 7.39 ABG pCO2 39.4 ABG pO2 153.4 H CK-MB (CK-2) 0.9 Troponin I 0.026 Hep Bs Antigen Hep B Core Total Ab Hep B DNA, Quant log10 Hep B DNA (Units/mL) 07/15/17 07/15/17 07/16/17 17:28 17:28 00:37 APTT 29.5 106.4 H D-Dimer ABG pH ABG pCO2 ABG pO2 CK-MB (CK-2) 0.9 Troponin I 0.017 Hep Bs Antigen Hep B Core Total Ab Hep B DNA, Quant log10 Hep B DNA (Units/mL) 07/16/17 06:22 APTT 99.3 H D-Dimer ABG pH ABG pCO2 ABG pO2 CK-MB (CK-2) Troponin I Hep Bs Antigen Hep B Core Total Ab Hep B DNA, Quant log10 Hep B DNA (Units/mL) Radiology Reviewed by me: Yes <Azeb Samuel - Last Filed: 07/16/17 10:11> - Objective Vital Signs & Weight: Vital Signs (12 hours) Temp Pulse Resp BP BP Pulse Ox 07/16/17 08:30 98.7 F 94 17 120/66 99 07/16/17 07:42 86 15 97 07/16/17 04:17 98.5 F 88 16 110/68 97 07/16/17 00:07 83 16 100 Weight Admit Weight 56.812 kg Weight 67.132 kg I&O: 07/15/17 07/16/17 07/17/17 06:59 06:59 06:59 Intake Total 2480 1670 Output Total 650 450 Balance 1830 1220 Result Diagrams: 07/16/17 06:22 07/16/17 06:22 <Jas Renee - Last Filed: 07/16/17 11:06> Phys Exam - Physical Examination Constitutional: NAD HEENT: moist MMs Respiratory: no wheezing, no rales, no rhonchi distant, decreased breath sounds Cardiovascular: RRR faint heart sounds, unchanged Gastrointestinal: soft, non-tender, no distention BLE pedal edema, non tender Neurological: non-focal, moves all 4 limbs Psychiatric: A&O x 3 Skin: cap refill <2 seconds <Azeb Samuel - Last Filed: 07/16/17 10:11> Dx/Plan (1) Severe sepsis Code(s): A41.9 - SEPSIS, UNSPECIFIED ORGANISM; R65.20 - SEVERE SEPSIS WITHOUT SEPTIC SHOCK Status: Resolved (2) UTI (urinary tract infection) due to urinary indwelling catheter Code(s): T83.511A - I/I REACT D/T INDWELLING URETHRAL CATHETER, INIT; N39.0 - URINARY TRACT INFECTION, SITE NOT SPECIFIED Status: Suspected (3) Transaminitis Code(s): R74.0 - NONSPEC ELEV OF LEVELS OF TRANSAMNS & LACTIC ACID DEHYDRGNSE Status: Acute (4) Macrocytic anemia Code(s): D53.9 - NUTRITIONAL ANEMIA, UNSPECIFIED Status: Chronic (5) Alcohol abuse Code(s): F10.10 - ALCOHOL ABUSE, UNCOMPLICATED Status: Chronic (6) BPH (benign prostatic hyperplasia) Code(s): N40.0 - BENIGN PROSTATIC HYPERPLASIA WITHOUT LOWER URINRY TRACT SYMP Status: Chronic (7) HTN (hypertension) Code(s): I10 - ESSENTIAL (PRIMARY) HYPERTENSION Status: Chronic (8) Malnourished Code(s): E46 - UNSPECIFIED PROTEIN-CALORIE MALNUTRITION Status: Chronic (9) Peripheral edema Code(s): R60.9 - EDEMA, UNSPECIFIED Status: Chronic (10) Acute kidney injury Code(s): N17.9 - ACUTE KIDNEY FAILURE, UNSPECIFIED Status: Resolved (11) Thrombocytopenia Code(s): D69.6 - THROMBOCYTOPENIA, UNSPECIFIED Status: Acute (12) Pulmonary embolism during current hospitalization Code(s): I26.99 - OTHER PULMONARY EMBOLISM WITHOUT ACUTE COR PULMONALE Status : Acute - Plan Plan: 76 yr old male who presented to hospital and found to be in sepsis Bilateral pulmonary embolism -suspect acute on chronic as patient is non mobile for > 6 months -DVT ppx had been held 2/2 low platelets during this hospitalization -now on heparin drip -consulted CV surg and appreciate recs in regards to possible IVC filter placement sepsis bacteremia 2/2 providencia rettgeri -now improved -completing 2 wks oral cipro per ID 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 poor urinary output -chronic -kidney function wnl BPH -chronic indwelling catheter -f/u Dr. Cho outpt macrocytic anemia -b12 and folate wnl -2/2 malnutrition blindness alcohol abuse -cessation counseling <Azeb Samuel - Last Filed: 07/16/17 10:11> Attending Addendum - Attending Addendum Date/Time: 07/16/17 1101 I personally evaluated the patient and discussed the management with Dr. Samuel. I agree with the History, Examination, Assessment and Plan documented above with any addition or exceptions noted below. Pt. 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 High fall risk, for eval of merits of IVC filter by CV surgery. <Renee,Jas A - Last Filed: 07/16/17 11:06>
[2017-07-16] MEDS: Calcium Citrate 950 MG TAB PO SCH (08:38)
--- NOTE | 2017-07-16 17:12 | CON ---
DATE OF CONSULTATION: 07/16/2017 HISTORY OF PRESENT ILLNESS: Mr. Pena is a very pleasant gentleman who is in the hospital with sep sis. He was getting ready to go home yesterday when he became acutely short of breath requiring sign ificant oxygen supplementation and maintain oxygen saturations. He was transferred over to the telem etry unit for monitoring. He had a CT angiogram performed of his chest, which showed pulmonary embol us. DVT scan is negative. I have been asked to see him to discuss inferior vena cava filter placeme nt secondary to contraindication to anticoagulation. The patient is blind and has a significant fall risk, making him high risk for anticoagulation. Currently, he is resting comfortably without any shortness of breath. PAST MEDICAL HISTORY: 1. Benign prostatic hypertrophy. 2. Alcohol abuse. 3. Blindness. 4. Cerebrovascular accident. 5. Chronic obstructive pulmonary disease. SOCIAL HISTORY: Lives in [place] with his . He continues to abuse alcohol. ALLERGIES: None. MEDICATIONS: Noted. PHYSICAL EXAMINATION: GENERAL: This is a well-developed, well-nourished, elderly appearing gentleman, resting comfortably. VITAL SIGNS: Height is 5 feet 11 inches, weight 148 pounds. Temperature is 99.1, pulse is 85 and re gular, blood pressure 120/66. LUNGS: Clear bilaterally. HEART: Rhythm is regular. ABDOMEN: Soft and nontender. EXTREMITIES: No edema. VASCULAR: Palpable femoral pulses bilaterally. LABORATORY DATA: Of note, his creatinine is 0.63. Hemoglobin is 10.3, platelet count is 102,000. ASSESSMENT AND PLAN: Deep venous thrombosis/pulmonary embolism with contraindication to anticoagulat ion. I have discussed permanent inferior vena cava filter placement with him and he is agreeable to proceed. Plan for placement in the morning.
[2017-07-16] MEDS: Heparin 25,000 units/D5W 500 ML IVPB SCH (17:37)
[2017-07-17] MEDS: Ciprofloxacin 500 MG TAB PO SCH ×2 (05:56→21:12)
[2017-07-17 06:08] LABS: ALT (SGPT) 24 U/L (8-55); AST (SGOT) 27 U/L (5-34); Alkaline Phosphatase 52 U/L (40-150); Anion Gap 10 mmol/L (10-20); BUN (Urea Nitrogen) 4 mg/dL (8.4-25.7); Bilirubin, Total 0.5 mg/dL (0.2-1.2); Calc. Creatinine Clearance 102 mL/min (70-130); Calcium 7.3 mg/dL (7.8-10.44); Carbon Dioxide 17 mmol/L (23-31); Chloride 111 mmol/L (98-107); Estimated GFR-MDRD Greater than 90; Globulin 2.5 g/dL (2.4-3.5); Glucose 99 mg/dL (83-110); Potassium 3.9 mmol/L (3.5-5.1); Protein, Total 4.5 g/dL (5.8-8.1); Sodium 134 mmol/L (136-145)
[2017-07-17] MEDS ORDERED: Lidocaine 1% (PF) 30 ML VIAL ONE (06:29)
[2017-07-17 07:00] LABS: #Eosinphils 0.1 thou/uL (0.0-0.7); #Lymphocytes 0.9 thou/uL (1.20-3.40); #Monocytes 0.8 thou/uL (0.11-0.59); #Neutrophils 7.2 thou/uL (1.40-6.50); %Basophils 0.1 % (0.0-1.0); %Lymphocytes 10.1 % (21.0-51.0); %Monocytes 8.5 % (0.0-10.0); %Neutrophils 80.2 % (42.0-75.0); Hemoglobin 9.9 g/dL (14.0-18.0); MDiff Complete? YES; Macrocytosis MODERATE=16-30 cells (100X) (0-5/hpf); Mean Corpuscular HGB CONC 32.9 g/dL (32.0-36.0); Mean Corpuscular Hemoglobin 38.2 pg (27.0-31.0); Mean Platelet Volume 8.7 fL (7.4-10.4); PLT Morphology Comment Appears Adequate; Platelet Count 155 thou/uL (130-400); RBC Distribution Width 13.3 % (11.5-14.5); Red Blood Cell (RBC) Count 2.59 mill/uL (4.70-6.10); White Blood Cell (WBC) Count 8.9 thou/uL (4.8-10.8)
[2017-07-17] MEDS: Mometasone/Formoterol 120 PUFF INHALER INH SCH ×2 (07:03→18:39)
--- NOTE | 2017-07-17 08:27 | PDOC.FM ---
- Subjective Subjective: Patient is lying flat after his IVC filter placement procedure this morning. He states he has felt "bloated." No abdominal pain, just uncomfortable like he would like to have a BM. Otherwise, he has no complaints. - Objective MAR Reviewed: Yes Vital Signs & Weight: Vital Signs (12 hours) Temp Pulse Resp BP Pulse Ox 07/17/17 04:00 98.9 F 92 16 131/81 92 L 07/17/17 00:46 91 16 92 L 07/16/17 20:39 99.1 F 105 H 16 94 L Weight Admit Weight 56.812 kg Weight 70.307 kg I&O: 07/16/17 07/17/17 07/18/17 06:59 06:59 06:59 Intake Total 1670 2450 Output Total 450 775 Balance 1220 1675 Result Diagrams: 07/17/17 04:51 07/17/17 04:51 Radiology: Repeat ECHO: EF 60-65%, Mild LVH, dilated RV with decreased systolic fxn, calcified aortic valve, mod pericardial effusion without evidence of tamponade <Azeb Samuel A - Last Filed: 07/17/17 08:34> - Objective Vital Signs & Weight: Vital Signs (12 hours) Temp Pulse Resp BP BP Pulse Ox 07/17/17 07:25 98.5 F 98 16 123/74 98 07/17/17 04:00 98.9 F 92 16 131/81 92 L 07/17/17 00:46 91 16 92 L Weight Admit Weight 56.812 kg Weight 70.307 kg I&O: 07/16/17 07/17/17 07/18/17 06:59 06:59 06:59 Intake Total 1670 2450 Output Total 450 775 Balance 1220 1675 Result Diagrams: 07/17/17 04:51 07/17/17 04:51 <Eugene Sim - Last Filed: 07/17/17 10:48> Phys Exam - Physical Examination Constitutional: NAD HEENT: moist MMs Respiratory: no rales, no rhonchi, clear to auscultation bilateral end expiratory wheezing. Cardiovascular: RRR, no significant murmur no rub Gastrointestinal: soft, non-tender, no distention, positive bowel sounds 1 +pedal edema sharon Neurological: non-focal, moves all 4 limbs Psychiatric: A&O x 3 <Azeb Samuel - Last Filed: 07/17/17 08:34> Dx/Plan (1) Pulmonary embolism during current hospitalization Code(s): I26.99 - OTHER PULMONARY EMBOLISM WITHOUT ACUTE COR PULMONALE Status : Acute (2) Severe sepsis Code(s): A41.9 - SEPSIS, UNSPECIFIED ORGANISM; R65.20 - SEVERE SEPSIS WITHOUT SEPTIC SHOCK Status: Resolved (3) UTI (urinary tract infection) due to urinary indwelling catheter Code(s): T83.511A - I/I REACT D/T INDWELLING URETHRAL CATHETER, INIT; N39.0 - URINARY TRACT INFECTION, SITE NOT SPECIFIED Status: Suspected (4) Transaminitis Code(s): R74.0 - NONSPEC ELEV OF LEVELS OF TRANSAMNS & LACTIC ACID DEHYDRGNSE Status: Acute (5) Macrocytic anemia Code(s): D53.9 - NUTRITIONAL ANEMIA, UNSPECIFIED Status: Chronic (6) Alcohol abuse Code(s): F10.10 - ALCOHOL ABUSE, UNCOMPLICATED Status: Chronic (7) BPH (benign prostatic hyperplasia) Code(s): N40.0 - BENIGN PROSTATIC HYPERPLASIA WITHOUT LOWER URINRY TRACT SYMP Status: Chronic (8) HTN (hypertension) Code(s): I10 - ESSENTIAL (PRIMARY) HYPERTENSION Status: Chronic (9) Malnourished Code(s): E46 - UNSPECIFIED PROTEIN-CALORIE MALNUTRITION Status: Chronic (10) Peripheral edema Code(s): R60.9 - EDEMA, UNSPECIFIED Status: Chronic (11) Acute kidney injury Code(s): N17.9 - ACUTE KIDNEY FAILURE, UNSPECIFIED Status: Resolved (12) Thrombocytopenia Code(s): D69.6 - THROMBOCYTOPENIA, UNSPECIFIED Status: Resolved - Plan Plan: 76 yr old male who presented to hospital and found to be in sepsis Bilateral pulmonary embolism -now s/p IVC filter placement -anticoagulation contraindicated. 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 gallbladder sludge -s/p MRI abdomen with no acute findings -no futher w/u transaminitis -Resolved -thought to be 2/2 chronic hepatitis B and alcoholism chronic Hep B -Hep B PCR quant elevated thrombocytopenia- improving since starting heparin -likely 2/2 chronic liver disease/ alcoholism malnourished -supplements provided. poor urinary output -chronic -kidney function wnl BPH -chronic indwelling catheter for severe urinary retention with plan for HH to change catheter 1x/ month -f/u Dr. Cho outpt -review of Dr. Cho's notes suggests a cystocopy has been done in last 4 months showing 4 cm prostate wtih bilobar hypertrophy and bladder trabeculation macrocytic anemia -b12 and folate wnl -likely 2/2 malnutrition blindness alcohol abuse -cessation counseling <Aezb Samuel - Last Filed: 07/17/17 08:34> Attending Addendum - Attending Addendum Date/Time: 07/17/17 2957 I personally evaluated the patient and discussed the management with Dr. Samuel. I agree with the History, Examination, Assessment and Plan documented above with any addition or exceptions noted below. Patient is s/p IVC filter placement after his acute on likely chronic pulmonary embolism on Sunday. He has been on heparin drip but we can discontinue that and transition to ASA per CVsurg recs. He is having some abdominal pain and bloating , no bowel movement in several days, and so we will work to rectify that. O2 sats normal on room air. Likely nearing stability for discharge. <Eugene Sim - Last Filed: 07/17/17 10:48>
[2017-07-17] MEDS: Aspirin 81 mg Enteric Coated Tablet PO SCH (09:48)
[2017-07-17] MEDS: Multivitamin W/ Minerals 1 TAB PO SCH (09:48)
[2017-07-17] MEDS: Folic Acid 1 MG TAB PO SCH (09:49)
[2017-07-17] MEDS: Finasteride 5 MG TAB PO SCH (09:49)
[2017-07-17] MEDS: Calcium Citrate 950 MG TAB PO SCH (09:49)
[2017-07-17] MEDS ORDERED: Bisacodyl 10 MG SUPP PR PRN (10:11)
[2017-07-17] MEDS ORDERED: Simethicone Chewable 80 MG TAB PO SCH (10:15)
--- NOTE | 2017-07-17 10:28 | OP ---
DATE OF PROCEDURE: 07/17/2017 PREOPERATIVE DIAGNOSES: Deep venous thrombosis/pulmonary embolism with contraindication to anticoagu lation. POSTOPERATIVE DIAGNOSES: Deep venous thrombosis/pulmonary embolism with contraindication to anticoag ulation. PROCEDURES: 1. Inferior vena cavogram. 2. Inferior vena cava filter placement - TrapEase placed with its tip at the lower portion of L1. TOTAL FLURO TIME: 0.3 minutes. TOTAL CONTRAST: 10 mL PROCEDURE IN DETAIL: After consent was obtained, the patient was brought to gold leaf laborer, placed in supi ne position on the gold leaf laborer table. Appropriate monitoring was placed. Using ultrasound guidance, th e right groin was anesthetized with 1% lidocaine. Common femoral vein was then accessed and the guid ewire passed into the inferior vena cava. Cavogram catheter was placed at the mid body of L2. Hand injected vena cavogram was performed. A second vena cavogram was performed with the tip of the siddharth ter in the mid body of L1. Renal veins were located at the mid body of L1. Tip of the deployment sh eath was then placed at the lower portion of L1. The vena cava measured less than 2.5 cm in diameter . TrapEase vena cava filter was then deployed with its tip at the lower portion of L1. The filter seat ed nicely. Sheath was removed and manual pressure held for hemostasis. The patient tolerated the pr ocedure well, and was transferred back to his room in stable condition.
[2017-07-17] MEDS ORDERED: Mometasone/Formoterol 120 PUFF INHALER INH SCH (10:45)
[2017-07-17] MEDS ORDERED: ISOVUE-370 76%-LOCM 1 ML ONE (12:51)
[2017-07-17] MEDS ORDERED: Iopamidol 370 76% 50 ML VIAL FS ONE (13:22)
[2017-07-17 17:15] LABS: Hemoglobin 8.2 g/dL (14.0-18.0); Platelet Count 236 thou/uL (130-400)
--- NOTE | 2017-07-17 18:42 | PDOC.EVN ---
Event Note - Event Note Event Note: Called about new scrotal edema. Delay in seeing patient due to acutely ill patient in ER needing critical attention. Hgb dropped today 9.9-->8.2 s/p IVC filter placement this AM. He reports continued abdominal discomfort. Mostly complaining of feeling bloated. He has had simethicone and dulcolax [place] and has had 3 small BMs today. Distention slightly worsened from exam this AM. No guarding, no rigidity, mild abdominal tenderness in RLQ. BS hyperactive diffusely. New scrotal and penis edema on exam. Will send for CT abd/pelvis with IV contrast only. Clinical course pending image findings. Restart fluids at 75 ml/hr.
[2017-07-17] MEDS ORDERED: Sodium Chloride 0.9% 500 ML IV SCH (19:15)
--- NOTE | 2017-07-17 19:27 | PRG ---
DATE OF SERVICE: 07/17/2017 SUBJECTIVE: Feels sensation of abdominal fullness. Constipation. No respiratory symptoms, mild dys pnea, no back pain. OBJECTIVE: VITAL SIGNS: T-max 98.9. LUNGS: Symmetric clear breath sounds. CARDIOVASCULAR: S1, S2, regular rate without murmurs. ABDOMEN: Soft, not tender. LABORATORY DATA: White cell count 5.8-8.9, hemoglobin 9.9, platelets 155, creatinine 0.62. Microbio logy with the Providencia strains. ASSESSMENT AND DISCUSSION: Alcoholism, chronic hepatitis B infection, chronic liver disease, cirrhos is, BPH with urosepsis secondary to a different strains of [place] DATE species. DISCUSSION: The patient most likely will need a transition to oral ciprofloxacin for approximately 2 weeks and start clear if a voiding trial was attempted may benefit if he failed a voiding trial and is not a candidate for any resolution of the obstruction, suprapubic catheter probably will be the be st solution for him.
--- NOTE | 2017-07-17 20:26 | CT ---
CT ABDOMEN AND PELVIS WITH CONTRAST: 07/17/17 HISTORY: Low hemoglobin. Distended abdomen. 12 hours after IVC filter placement. COMPARISON: None. FINDINGS: There are large bilateral layering pleural effusions. There is extensive third spacing of fluid. A ve ry large retroperitoneal hematoma involving the right psoas muscle extending into the right posterior pararenal space. Hematoma measures 9 x 10 x approximately 20 cm. There is some anterior displacement of the right kidney. The urinary bladder wall is thickened. Moderate free fluid in the pelvis. Right renal cyst is present. Moderate free fluid in the pelvis. Mildly distended loops of small bowel. There is a lumbosacral transitional vertebra with fusion of right L5 transverse process with the sacr um. Moderate facet arthropathy of the lumbar spine. IVC filter is in place at the level of the renal veins extending craniad and caudad to the renal vein s. IMPRESSION: 1. Large right retroperitoneal hematoma involving the iliacus muscle in the right posterior para renal space extending down to the pelvis. There is a focus of active extravasation within the right i liacus muscle. 2. Extensive third spacing of fluid. 3. Absence of contrast enhancement of the bilateral femoral arteries although there is contrast in the deep femoral arteries. A CT angiogram may be beneficial to evaluate for vascular occlusion michelle jordi phase of contrast. Code CR - Nurse taking are of patient notified of findings at 7:57 p.m. POS: SERGIO
[2017-07-17 20:32] LABS: Hemoglobin 7.6 g/dL (14.0-18.0); Platelet Count 210 thou/uL (130-400)
[2017-07-17] MEDS: Sodium Chloride 0.9% 1,000 ML IV SCH (21:13)
--- NOTE | 2017-07-17 21:57 | PDOC.EVN ---
Event Note - Event Note Event Note: CT showed large retroperitoneal hematoma (see report). call center representative CV surgery and General surgery notified. Both have recommended no surgical intervention. Will check serial H&H q 4 hrs. Recent Hgb is 7.6, a drop in 4 hours from 8.2. He did receive 500 mg IV bolus in that time. Cont IV fluids at 75 ml/hr with low threshold to increase rate if Hgb drops. 1 unit PRBC type and crossmatched and will transfuse for hgb < 7. Vital signs stable. PTT recently checked and is wnl since stopped heparin > 4 hours. Plan discussed with night team and nursing staff.
[2017-07-18 00:37] LABS: Hemoglobin 7.3 g/dL (14.0-18.0); Platelet Count 224 thou/uL (130-400)
[2017-07-18] MEDS ORDERED: Albuterol Sulfate 1.25 MG/3 ML NEB NEB PRN (01:36)
[2017-07-18] MEDS ORDERED: Albuterol Sulfate 1.25 MG/3 ML NEB NEB SCH (02:30)
[2017-07-18 06:12] LABS: #Lymphocytes 1.1 thou/uL (1.20-3.40); #Monocytes 1.5 thou/uL (0.11-0.59); #Neutrophils 16.3 thou/uL (1.40-6.50); %Eosinophils 0.1 % (0.0-10.0); %Monocytes 7.7 % (0.0-10.0); %Neutrophils 86.2 % (42.0-75.0); Hemoglobin 7.1 g/dL (14.0-18.0); Mean Corpuscular HGB CONC 33.2 g/dL (32.0-36.0); Mean Corpuscular Hemoglobin 37.4 pg (27.0-31.0); Mean Platelet Volume 7.1 fL (7.4-10.4); Platelet Count 233 thou/uL (130-400)
[2017-07-18 06:34] LABS: ALT (SGPT) 22 U/L (8-55); AST (SGOT) 33 U/L (5-34); Albumin 2.3 g/dL (3.4-4.8); Alkaline Phosphatase 55 U/L (40-150); Anion Gap 11 mmol/L (10-20); BUN (Urea Nitrogen) 9 mg/dL (8.4-25.7); Bilirubin, Total 0.5 mg/dL (0.2-1.2); Calc. Creatinine Clearance 49 mL/min (70-130); Calcium 7.6 mg/dL (7.8-10.44); Carbon Dioxide 21 mmol/L (23-31); Chloride 108 mmol/L (98-107); Estimated GFR-MDRD 66; Globulin 2.5 g/dL (2.4-3.5); Glucose 136 mg/dL (83-110); Potassium 5.2 mmol/L (3.5-5.1); Protein, Total 4.8 g/dL (5.8-8.1); Sodium 135 mmol/L (136-145)
[2017-07-18] MEDS: Ciprofloxacin 500 MG TAB PO SCH ×2 (06:48→21:20)
[2017-07-18] MEDS: PROVENTIL INHALER 6.7 G (200 INHALATIONS) INH PRN ×2 (08:03→15:14)
[2017-07-18] MEDS: Mometasone/Formoterol 120 PUFF INHALER INH SCH ×2 (08:05→20:36)
[2017-07-18] MEDS: Sodium Chloride 0.9% 1,000 ML IV SCH ×2 (08:45→14:19)
[2017-07-18] MEDS: Multivitamin W/ Minerals 1 TAB PO SCH (08:46)
[2017-07-18] MEDS: Folic Acid 1 MG TAB PO SCH (08:46)
[2017-07-18] MEDS: Calcium Citrate 950 MG TAB PO SCH (08:46)
[2017-07-18] MEDS: Finasteride 5 MG TAB PO SCH (08:47)
[2017-07-18] MEDS ORDERED: Aspirin 325 MG TAB PO SCH (09:00)
--- NOTE | 2017-07-18 09:24 | PDOC.FM ---
- Subjective Subjective: Patient states he feels a little better this morning in his abdomen. He consents to a blood transfusion and medical need has been explained to him. He has had multiple BMs. His urine output has decreased. He reports some SOB but no worse than the last few days. - Objective MAR Reviewed: Yes Vital Signs & Weight: Vital Signs (12 hours) Temp Pulse Pulse Resp BP BP BP 07/18/17 08:05 97 16 07/18/17 08:03 97 16 07/18/17 07:50 98 F 100 20 125/57 L 07/18/17 07:31 97.9 F 104 H 20 112/84 07/18/17 04:00 98 F 93 20 111/63 111/63 07/17/17 23:04 97.8 F 113 H 20 103/67 103/67 Pulse Ox 07/18/17 08:05 98 07/18/17 08:03 98 07/18/17 07:50 100 07/18/17 07:31 100 07/18/17 04:00 100 07/17/17 23:04 99 Weight Admit Weight 56.812 kg Weight 70.08 kg I&O: 07/17/17 07/18/17 07/19/17 06:59 06:59 06:59 Intake Total 2450 2976 0 Output Total 775 270 Balance 1675 2706 0 Result Diagrams: 07/18/17 05:48 07/18/17 05:48 EKG Reviewed by me: Yes Radiology Reviewed by me: Yes (CT- large peritoneal hematoma ) <Azeb Samuel - Last Filed: 07/18/17 10:00> - Objective Vital Signs & Weight: Vital Signs (12 hours) Temp Pulse Resp BP BP Pulse Ox 07/19/17 08:35 98.0 F 96 20 07/19/17 08:30 98.0 F 96 20 119/65 94 L 07/19/17 08:01 89 16 98 07/19/17 03:29 97.0 F L 118 H 17 115/66 100 Weight Admit Weight 56.812 kg Weight 70.125 kg I&O: 07/18/17 07/19/17 07/20/17 06:59 06:59 06:59 Intake Total 2976 1100 Output Total 270 75 Balance 2706 1025 Result Diagrams: 07/19/17 02:49 07/19/17 02:48 <ReneeJas estrada - Last Filed: 07/19/17 11:28> Phys Exam - Physical Examination Constitutional: NAD Respiratory: no wheezing decreased breath sounds Cardiovascular: no significant murmur tachy, regular rhythm Gastrointestinal: soft minimal distention, BS present 2+ pitting edema in BLE to calves Neurological: moves all 4 limbs Psychiatric: A&O x 3 <Azeb Samuel - Last Filed: 07/18/17 10:00> Dx/Plan (1) Retroperitoneal hematoma Code(s): K66.1 - HEMOPERITONEUM Status: Acute (2) Acute blood loss anemia Code(s): D62 - ACUTE POSTHEMORRHAGIC ANEMIA Status: Acute (3) Pulmonary embolism during current hospitalization Code(s): I26.99 - OTHER PULMONARY EMBOLISM WITHOUT ACUTE COR PULMONALE Status : Acute (4) Severe sepsis Code(s): A41.9 - SEPSIS, UNSPECIFIED ORGANISM; R65.20 - SEVERE SEPSIS WITHOUT SEPTIC SHOCK Status: Resolved (5) UTI (urinary tract infection) due to urinary indwelling catheter Code(s): T83.511A - I/I REACT D/T INDWELLING URETHRAL CATHETER, INIT; N39.0 - URINARY TRACT INFECTION, SITE NOT SPECIFIED Status: Suspected (6) Transaminitis Code(s): R74.0 - NONSPEC ELEV OF LEVELS OF TRANSAMNS & LACTIC ACID DEHYDRGNSE Status: Acute (7) Macrocytic anemia Code(s): D53.9 - NUTRITIONAL ANEMIA, UNSPECIFIED Status: Chronic (8) Alcohol abuse Code(s): F10.10 - ALCOHOL ABUSE, UNCOMPLICATED Status: Chronic (9) BPH (benign prostatic hyperplasia) Code(s): N40.0 - BENIGN PROSTATIC HYPERPLASIA WITHOUT LOWER URINRY TRACT SYMP Status: Chronic (10) HTN (hypertension) Code(s): I10 - ESSENTIAL (PRIMARY) HYPERTENSION Status: Chronic (11) Malnourished Code(s): E46 - UNSPECIFIED PROTEIN-CALORIE MALNUTRITION Status: Chronic (12) Peripheral edema Code(s): R60.9 - EDEMA, UNSPECIFIED Status: Chronic (13) Acute kidney injury Code(s): N17.9 - ACUTE KIDNEY FAILURE, UNSPECIFIED Status: Resolved (14) Thrombocytopenia Code(s): D69.6 - THROMBOCYTOPENIA, UNSPECIFIED Status: Resolved - Plan Plan: 76 yr old male who presented to hospital and found to be in sepsis Retroperitoneal Hematoma -transfusing 1 unit PRBC as hgb has slowly decreased from 9.9 to 7.1 in 24 hours. -continue to monitor serial H&H s/p blood transfusion -no surgical intervention recommended at this time elevated WBC -tachycardic however also acute blood loss -afebrile -on cipro for UTI -cont to monitor and low threshold for broad abx if concern for infection develops GENEVIEVE -decreased urinary output which has been a chronic issue for this patient. -will reach out to urology for recommendations -concern for poor profusion getting transfusion now hyperkalemia -monitor with repeat BMP this afternoon Bilateral pulmonary embolism -now s/p IVC filter placement -anticoagulation contraindicated. 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 gallbladder sludge -s/p MRI abdomen with no acute findings -no futher w/u transaminitis -Resolved -thought to be 2/2 chronic hepatitis B and alcoholism chronic Hep B -Hep B PCR quant elevated thrombocytopenia- -may have been 2/2 sepsis as plt count improved dramatically malnourished -supplements provided. BPH -chronic indwelling catheter for severe urinary retention with plan for HH to change catheter 1x/ month -f/u Dr. Cho outpt -review of Dr. Cho's notes suggests a cystocopy has been done in last 4 months showing 4 cm prostate wtih bilobar hypertrophy and bladder trabeculation macrocytic anemia -b12 and folate wnl -likely 2/2 malnutrition blindness alcohol abuse -cessation counseling <Azeb Samuel - Last Filed: 07/18/17 10:00> Attending Addendum - Attending Addendum Date/Time: 07/19/17 1125 I personally evaluated the patient and discussed the management with Dr. Samuel I agree with the History, Examination, Assessment and Plan documented above with any addition or exceptions noted below. Scrotal edema and BLE edema. decreased UOP. Right retroperitoneal hematoma. H &H drop. Transfused 1U PRBC's. Vitals stable. If continues to drop, transfuse and reassess Hematoma for expansion. <Jas Renee - Last Filed: 07/19/17 11:28>
[2017-07-18 15:17] LABS: Hemoglobin 7.9 g/dL (14.0-18.0); Platelet Count 197 thou/uL (130-400)
[2017-07-18 15:45] LABS: Anion Gap 14 mmol/L (10-20); BUN (Urea Nitrogen) 11 mg/dL (8.4-25.7); Calc. Creatinine Clearance 42 mL/min (70-130); Calcium 7.5 mg/dL (7.8-10.44); Carbon Dioxide 19 mmol/L (23-31); Chloride 107 mmol/L (98-107); Estimated GFR-MDRD 56; Glucose 105 mg/dL (83-110); Potassium 4.7 mmol/L (3.5-5.1); Sodium 135 mmol/L (136-145)
--- NOTE | 2017-07-18 20:25 | EKG ---
Test Reason : STAT Blood Pressure : / mmHG Vent. Rate : 117 BPM Atrial Rate : 117 BPM P-R Int : 000 ms QRS Dur : 064 ms QT Int : 378 ms P-R-T Axes : 000 075 -89 degrees QTc Int : 527 ms Atrial fibrillation with rapid ventricular response Low voltage QRS Septal infarct , age undetermined Abnormal ECG When compared with ECG of 15-JUL-2017 17:19, (Unconfirmed) Atrial fibrillation has replaced Sinus rhythm Nonspecific T wave abnormality, worse in Inferior leads Nonspecific T wave abnormality now evident in Lateral leads Confirmed by FABIAN LEGER (2) on 07/18/2017 8:25:33 PM Referred By: ANATOLIY Confirmed By:FABIAN LEGER
[2017-07-18 20:29] LABS: Hemoglobin 7.6 g/dL (14.0-18.0); Platelet Count 194 thou/uL (130-400)
[2017-07-18 22:43] LABS: Hemoglobin 7.3 g/dL (14.0-18.0); Platelet Count 188 thou/uL (130-400)
[2017-07-19 03:17] LABS: #Lymphocytes 0.7 thou/uL (1.20-3.40); #Monocytes 1.1 thou/uL (0.11-0.59); #Neutrophils 13.5 thou/uL (1.40-6.50); %Basophils 0.2 % (0.0-1.0); %Eosinophils 0.3 % (0.0-10.0); %Lymphocytes 4.6 % (21.0-51.0); %Monocytes 7.2 % (0.0-10.0); %Neutrophils 87.8 % (42.0-75.0); Hemoglobin 7.4 g/dL (14.0-18.0); Mean Corpuscular HGB CONC 34.2 g/dL (32.0-36.0); Mean Corpuscular Hemoglobin 36.3 pg (27.0-31.0); Mean Platelet Volume 6.6 fL (7.4-10.4); Platelet Count 192 thou/uL (130-400); RBC Distribution Width 16.7 % (11.5-14.5); Red Blood Cell (RBC) Count 2.05 mill/uL (4.70-6.10); White Blood Cell (WBC) Count 14.9 thou/uL (4.8-10.8)
[2017-07-19 03:35] LABS: ALT (SGPT) 19 U/L (8-55); AST (SGOT) 32 U/L (5-34); Albumin 2.3 g/dL (3.4-4.8); Alkaline Phosphatase 52 U/L (40-150); Anion Gap 11 mmol/L (10-20); BUN (Urea Nitrogen) 15 mg/dL (8.4-25.7); Bilirubin, Total 0.5 mg/dL (0.2-1.2); Calc. Creatinine Clearance 41 mL/min (70-130); Calcium 7.6 mg/dL (7.8-10.44); Carbon Dioxide 22 mmol/L (23-31); Chloride 108 mmol/L (98-107); Estimated GFR-MDRD 54; Globulin 2.4 g/dL (2.4-3.5); Glucose 88 mg/dL (83-110); Potassium 4.5 mmol/L (3.5-5.1); Protein, Total 4.7 g/dL (5.8-8.1); Sodium 136 mmol/L (136-145)
[2017-07-19] MEDS: Sodium Chloride 0.9% 1,000 ML IV SCH (05:10)
[2017-07-19] MEDS: Ciprofloxacin 500 MG TAB PO SCH ×2 (05:11→20:42)
[2017-07-19] MEDS: Mometasone/Formoterol 120 PUFF INHALER INH SCH ×2 (08:01→19:40)
[2017-07-19] MEDS: PROVENTIL INHALER 6.7 G (200 INHALATIONS) INH PRN ×2 (08:01→13:24)
[2017-07-19] MEDS: Folic Acid 1 MG TAB PO SCH (08:36)
[2017-07-19] MEDS: Finasteride 5 MG TAB PO SCH (08:36)
[2017-07-19] MEDS: Multivitamin W/ Minerals 1 TAB PO SCH (08:36)
[2017-07-19] MEDS: Calcium Citrate 950 MG TAB PO SCH (08:36)
--- NOTE | 2017-07-19 09:39 | PDOC.FM ---
- Subjective Subjective: pt states he is feeling better this morning. He does c/o occasional dull pain in RLQ. He ate a little food this AM. otherwise no complaints or changes. - Objective MAR Reviewed: Yes Vital Signs & Weight: Vital Signs (12 hours) Temp Pulse Resp BP BP Pulse Ox 07/19/17 08:30 98.0 F 96 20 119/65 94 L 07/19/17 08:01 89 16 98 07/19/17 03:29 97.0 F L 118 H 17 115/66 100 Weight Admit Weight 56.812 kg Weight 70.125 kg I&O: 07/18/17 07/19/17 07/20/17 06:59 06:59 06:59 Intake Total 2976 1100 Output Total 270 75 Balance 2706 1025 Result Diagrams: 07/19/17 02:49 07/19/17 02:48 <Azeb Samuel - Last Filed: 07/19/17 10:53> - Objective Vital Signs & Weight: Vital Signs (12 hours) Temp Pulse Resp BP BP Pulse Ox 07/19/17 08:35 98.0 F 96 20 07/19/17 08:30 98.0 F 96 20 119/65 94 L 07/19/17 08:01 89 16 98 07/19/17 03:29 97.0 F L 118 H 17 115/66 100 Weight Admit Weight 56.812 kg Weight 70.125 kg I&O: 07/18/17 07/19/17 07/20/17 06:59 06:59 06:59 Intake Total 2976 1100 Output Total 270 75 Balance 2706 1025 Result Diagrams: 07/19/17 02:49 07/19/17 02:48 <Jas Renee - Last Filed: 07/19/17 11:30> Phys Exam - Physical Examination Constitutional: NAD anterior chest wall wheezing, decreased breath sound bilaterally LL Cardiovascular: RRR, no significant murmur distant faint heart sounds Gastrointestinal: soft, non-tender, positive bowel sounds 2+ pitting edema in BLE Psychiatric: normal affect, A&O x 3 <Azeb aSmuel - Last Filed: 07/19/17 10:53> Dx/Plan (1) Retroperitoneal hematoma Code(s): K66.1 - HEMOPERITONEUM Status: Acute (2) Acute blood loss anemia Code(s): D62 - ACUTE POSTHEMORRHAGIC ANEMIA Status: Acute (3) Pulmonary embolism during current hospitalization Code(s): I26.99 - OTHER PULMONARY EMBOLISM WITHOUT ACUTE COR PULMONALE Status : Acute (4) Severe sepsis Code(s): A41.9 - SEPSIS, UNSPECIFIED ORGANISM; R65.20 - SEVERE SEPSIS WITHOUT SEPTIC SHOCK Status: Resolved (5) UTI (urinary tract infection) due to urinary indwelling catheter Code(s): T83.511A - I/I REACT D/T INDWELLING URETHRAL CATHETER, INIT; N39.0 - URINARY TRACT INFECTION, SITE NOT SPECIFIED Status: Suspected (6) Transaminitis Code(s): R74.0 - NONSPEC ELEV OF LEVELS OF TRANSAMNS & LACTIC ACID DEHYDRGNSE Status: Acute (7) Macrocytic anemia Code(s): D53.9 - NUTRITIONAL ANEMIA, UNSPECIFIED Status: Chronic (8) Alcohol abuse Code(s): F10.10 - ALCOHOL ABUSE, UNCOMPLICATED Status: Chronic (9) BPH (benign prostatic hyperplasia) Code(s): N40.0 - BENIGN PROSTATIC HYPERPLASIA WITHOUT LOWER URINRY TRACT SYMP Status: Chronic (10) HTN (hypertension) Code(s): I10 - ESSENTIAL (PRIMARY) HYPERTENSION Status: Chronic (11) Malnourished Code(s): E46 - UNSPECIFIED PROTEIN-CALORIE MALNUTRITION Status: Chronic (12) Peripheral edema Code(s): R60.9 - EDEMA, UNSPECIFIED Status: Chronic (13) Acute kidney injury Code(s): N17.9 - ACUTE KIDNEY FAILURE, UNSPECIFIED Status: Resolved (14) Thrombocytopenia Code(s): D69.6 - THROMBOCYTOPENIA, UNSPECIFIED Status: Resolved - Plan Plan: 76 yr old male who presented to hospital and found to be in sepsis Retroperitoneal Hematoma -s/p 1 unit PRBC -hgb stabalized at 7.4 -continue to monitor H&H daily -no surgical intervention recommended at this time elevated WBC- improving -tachycardic however also acute blood loss -afebrile -on cipro for UTI -cont to monitor and low threshold for broad abx if concern for infection develops GENEVIEVE -urine outpuit has improved in last 12 hours. Willl recheck BMP and if worsened will consult nephro -check FENA hyperkalemia -RESOLVED Bilateral pulmonary embolism -now s/p IVC filter placement -anticoagulation contraindicated. 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 gallbladder sludge -s/p MRI abdomen with no acute findings -no futher w/u transaminitis -Resolved -thought to be 2/2 chronic hepatitis B and alcoholism chronic Hep B -Hep B PCR quant elevated -Outpt followup thrombocytopenia- -may have been 2/2 sepsis as plt count improved dramatically malnourished -supplements provided. BPH -chronic indwelling catheter for severe urinary retention with plan for HH to change catheter 1x/ month -f/u Dr. Cho outpt -review of Dr. Cho's notes suggests a cystocopy has been done in last 4 months showing 4 cm prostate wtih bilobar hypertrophy and bladder trabeculation macrocytic anemia -b12 and folate wnl -likely 2/2 malnutrition blindness alcohol abuse -cessation counseling <Azeb Samuel - Last Filed: 07/19/17 10:53> Attending Addendum - Attending Addendum Date/Time: 07/19/17 1210 I personally evaluated the patient and discussed the management with Dr. Samuel. I agree with the History, Examination, Assessment and Plan documented above with any addition or exceptions noted below. Vitals stable. BLE edema unchanged. Creatinine and H&H stabilized UOP improving this a.m. Trial of Diuretic to mobilize fluid now that seems to be trending toward improvement. <Jas Renee - Last Filed: 07/19/17 11:30>
[2017-07-19] MEDS ORDERED: Furosemide 20 MG/2 ML VIAL SLOW IVP SCH (11:45)
[2017-07-19 12:32] LABS: #Eosinphils 0.1 thou/uL (0.0-0.7); #Lymphocytes 0.7 thou/uL (1.20-3.40); #Monocytes 0.9 thou/uL (0.11-0.59); #Neutrophils 12.1 thou/uL (1.40-6.50); %Eosinophils 0.7 % (0.0-10.0); %Lymphocytes 5.1 % (21.0-51.0); %Monocytes 6.7 % (0.0-10.0); %Neutrophils 87.5 % (42.0-75.0); Hemoglobin 7.2 g/dL (14.0-18.0); Mean Corpuscular HGB CONC 33.6 g/dL (32.0-36.0); Mean Corpuscular Hemoglobin 36.2 pg (27.0-31.0); Mean Platelet Volume 6.6 fL (7.4-10.4); Platelet Count 207 thou/uL (130-400); RBC Distribution Width 16.5 % (11.5-14.5); White Blood Cell (WBC) Count 13.8 thou/uL (4.8-10.8)
[2017-07-19 12:48] LABS: Anion Gap 8 mmol/L (10-20); BUN (Urea Nitrogen) 15 mg/dL (8.4-25.7); Calc. Creatinine Clearance 46 mL/min (70-130); Calcium 7.6 mg/dL (7.8-10.44); Carbon Dioxide 23 mmol/L (23-31); Chloride 108 mmol/L (98-107); Estimated GFR-MDRD 60; Glucose 88 mg/dL (83-110); Potassium 4.3 mmol/L (3.5-5.1); Sodium 135 mmol/L (136-145)
[2017-07-19 13:13] LABS: Creatinine, Urine 105.57 mg/dL (63-166)
[2017-07-20 05:24] LABS: #Eosinphils 0.1 thou/uL (0.0-0.7); #Lymphocytes 0.9 thou/uL (1.20-3.40); #Monocytes 0.9 thou/uL (0.11-0.59); #Neutrophils 12.5 thou/uL (1.40-6.50); %Basophils 0.1 % (0.0-1.0); %Eosinophils 0.7 % (0.0-10.0); %Lymphocytes 6.3 % (21.0-51.0); %Monocytes 6.3 % (0.0-10.0); %Neutrophils 86.6 % (42.0-75.0); Hemoglobin 7.7 g/dL (14.0-18.0); Mean Corpuscular HGB CONC 32.8 g/dL (32.0-36.0); Mean Corpuscular Hemoglobin 35.4 pg (27.0-31.0); Mean Platelet Volume 6.3 fL (7.4-10.4); Platelet Count 251 thou/uL (130-400); Red Blood Cell (RBC) Count 2.17 mill/uL (4.70-6.10); White Blood Cell (WBC) Count 14.4 thou/uL (4.8-10.8)
[2017-07-20 05:40] LABS: ALT (SGPT) 19 U/L (8-55); AST (SGOT) 32 U/L (5-34); Albumin 2.4 g/dL (3.4-4.8); Alkaline Phosphatase 55 U/L (40-150); Anion Gap 11 mmol/L (10-20); BUN (Urea Nitrogen) 16 mg/dL (8.4-25.7); Bilirubin, Total 0.5 mg/dL (0.2-1.2); Calc. Creatinine Clearance 53 mL/min (70-130); Calcium 7.8 mg/dL (7.8-10.44); Carbon Dioxide 23 mmol/L (23-31); Chloride 106 mmol/L (98-107); Estimated GFR-MDRD 71; Globulin 2.5 g/dL (2.4-3.5); Glucose 75 mg/dL (83-110); Potassium 4.6 mmol/L (3.5-5.1); Protein, Total 4.9 g/dL (5.8-8.1); Sodium 135 mmol/L (136-145)
[2017-07-20] MEDS: Ciprofloxacin 500 MG TAB PO SCH ×2 (06:00→20:32)
--- NOTE | 2017-07-20 06:25 | PDOC.FM ---
- Subjective Subjective: Patient says he feels better today than entire hospitalization. Only having pain when trying to sit up so he prefers to lay flat. He is tolerating PO but does not want to eat much. Tolerating liquids. Denies nausea, vomiting, abdominal pain. States breathing is about the same. - Objective Vital Signs & Weight: Vital Signs (12 hours) Temp Pulse Resp BP Pulse Ox 07/20/17 04:34 98 07/20/17 04:32 98.6 F 117 H 20 109/64 98 07/19/17 20:08 98.5 F 116 H 20 100 07/19/17 19:51 98.5 F 116 H 20 127/61 100 07/19/17 19:40 91 16 99 Weight Admit Weight 56.812 kg Weight 70.488 kg I&O: 07/18/17 07/19/17 07/20/17 06:59 06:59 06:59 Intake Total 2976 1100 1000 Output Total 144 08 6956 Balance 2706 1025 -1025 Result Diagrams: 07/20/17 04:32 07/20/17 04:32 <Azeb Samuel A - Last Filed: 07/20/17 09:32> - Objective Vital Signs & Weight: Vital Signs (12 hours) Temp Pulse Resp BP BP Pulse Ox 07/20/17 09:58 115 H 16 07/20/17 09:55 115 H 16 07/20/17 07:50 97.8 F 113 H 18 115/60 100 07/20/17 04:34 98 07/20/17 04:32 98.6 F 117 H 20 109/64 98 Weight Admit Weight 56.812 kg Weight 70.488 kg I&O: 07/19/17 07/20/17 07/21/17 06:59 06:59 06:59 Intake Total 1100 1000 Output Total 75 2025 Balance 1025 -1025 Result Diagrams: 07/20/17 04:32 07/20/17 04:32 <Jas Renee A - Last Filed: 07/20/17 11:11> Phys Exam - Physical Examination Constitutional: NAD HEENT: moist MMs Respiratory: no wheezing, no rales, clear to auscultation bilateral decreased breath sound in BLL Cardiovascular: RRR, no significant murmur Gastrointestinal: soft, non-tender, no distention, positive bowel sounds 1-2+ pitting edema BLE Neurological: non-focal Psychiatric: normal affect, A&O x 3 <Azeb Samuel - Last Filed: 07/20/17 09:32> Dx/Plan (1) Retroperitoneal hematoma Code(s): K66.1 - HEMOPERITONEUM Status: Acute (2) Acute blood loss anemia Code(s): D62 - ACUTE POSTHEMORRHAGIC ANEMIA Status: Acute (3) Pulmonary embolism during current hospitalization Code(s): I26.99 - OTHER PULMONARY EMBOLISM WITHOUT ACUTE COR PULMONALE Status : Acute (4) Severe sepsis Code(s): A41.9 - SEPSIS, UNSPECIFIED ORGANISM; R65.20 - SEVERE SEPSIS WITHOUT SEPTIC SHOCK Status: Resolved (5) UTI (urinary tract infection) due to urinary indwelling catheter Code(s): T83.511A - I/I REACT D/T INDWELLING URETHRAL CATHETER, INIT; N39.0 - URINARY TRACT INFECTION, SITE NOT SPECIFIED Status: Suspected (6) Transaminitis Code(s): R74.0 - NONSPEC ELEV OF LEVELS OF TRANSAMNS & LACTIC ACID DEHYDRGNSE Status: Acute (7) Macrocytic anemia Code(s): D53.9 - NUTRITIONAL ANEMIA, UNSPECIFIED Status: Chronic (8) Alcohol abuse Code(s): F10.10 - ALCOHOL ABUSE, UNCOMPLICATED Status: Chronic (9) BPH (benign prostatic hyperplasia) Code(s): N40.0 - BENIGN PROSTATIC HYPERPLASIA WITHOUT LOWER URINRY TRACT SYMP Status: Chronic (10) HTN (hypertension) Code(s): I10 - ESSENTIAL (PRIMARY) HYPERTENSION Status: Chronic (11) Malnourished Code(s): E46 - UNSPECIFIED PROTEIN-CALORIE MALNUTRITION Status: Chronic (12) Peripheral edema Code(s): R60.9 - EDEMA, UNSPECIFIED Status: Chronic (13) Acute kidney injury Code(s): N17.9 - ACUTE KIDNEY FAILURE, UNSPECIFIED Status: Resolved (14) Thrombocytopenia Code(s): D69.6 - THROMBOCYTOPENIA, UNSPECIFIED Status: Resolved - Plan Plan: 76 yr old male who presented to hospital and found to be in sepsis Retroperitoneal Hematoma -s/p 1 unit PRBC -hgb improved from 7.2 to 7.7 in last 24 hours -continue to monitor H&H daily -no surgical intervention recommended at this time acute blood loss anemia on macrocytic anemia -b12 and folate wnl -see retroperitoneal hematoma elevated WBC- improving -tachycardic however also acute blood loss -afebrile -on cipro for UTI -cont to monitor and low threshold for broad abx if concern for infection develops GENEVIEVE- resolving -FENA on 07/19 suggesting pre renal cause -UOP improved in last 24 hours albeit given lasix -cont to monitor daily BMP chronic Hep B -Hep B PCR quant elevated -Outpt followup malnourished -supplements provided. -poor albumin BPH -chronic indwelling catheter for severe urinary retention with plan for HH to change catheter 1x/ month -f/u Dr. Cho outpt -review of Dr. Cho's notes suggests a cystocopy has been done in last 4 months showing 4 cm prostate wtih bilobar hypertrophy and bladder trabeculation hyperkalemia -RESOLVED Bilateral pulmonary embolism -now s/p IVC filter placement -anticoagulation contraindicated. 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 -recommend outpatient follow up with urology to consider suprapubic catheter. gallbladder sludge -s/p MRI abdomen with no acute findings -no futher w/u transaminitis -Resolved -thought to be 2/2 chronic hepatitis B and alcoholism thrombocytopenia-RESOLVED blindness alcohol abuse -cessation counseling may be ready for discharge tomorrow. <Azeb Samuel - Last Filed: 07/20/17 09:32> Attending Addendum - Attending Addendum Date/Time: 07/20/17 1103 I personally evaluated the patient and discussed the management with Dr. Samuel I agree with the History, Examination, Assessment and Plan documented above with any addition or exceptions noted below. Hemoglobin and kidney function stabilized. Diuresing well with lasix. Arranging outpatient follow up at this time. Patient offered placement at rehab or SNF but preferred to go home. Plan for discharge tomorrow to monitor vitals and labs overnight. <Jas Renee - Last Filed: 07/20/17 11:11>
[2017-07-20] MEDS: Calcium Citrate 950 MG TAB PO SCH (08:55)
[2017-07-20] MEDS: Finasteride 5 MG TAB PO SCH (08:55)
[2017-07-20] MEDS: Folic Acid 1 MG TAB PO SCH (08:55)
[2017-07-20] MEDS: Multivitamin W/ Minerals 1 TAB PO SCH (08:55)
[2017-07-20] MEDS ORDERED: Furosemide 20 MG TAB PO SCH (09:00)
[2017-07-20] MEDS: PROVENTIL INHALER 6.7 G (200 INHALATIONS) INH PRN ×4 (09:55→14:08)
[2017-07-20] MEDS: Mometasone/Formoterol 120 PUFF INHALER INH SCH ×2 (09:58→18:35)
[2017-07-21 05:18] LABS: #Eosinphils 0.2 thou/uL (0.0-0.7); #Lymphocytes 0.8 thou/uL (1.20-3.40); #Monocytes 0.9 thou/uL (0.11-0.59); #Neutrophils 8.8 thou/uL (1.40-6.50); %Basophils 0.1 % (0.0-1.0); %Eosinophils 1.7 % (0.0-10.0); %Lymphocytes 7.4 % (21.0-51.0); %Monocytes 8.1 % (0.0-10.0); %Neutrophils 82.7 % (42.0-75.0); Hemoglobin 7.1 g/dL (14.0-18.0); Mean Corpuscular HGB CONC 34.3 g/dL (32.0-36.0); Mean Corpuscular Hemoglobin 37.1 pg (27.0-31.0); Mean Platelet Volume 6.3 fL (7.4-10.4); Platelet Count 245 thou/uL (130-400); RBC Distribution Width 15.6 % (11.5-14.5); Red Blood Cell (RBC) Count 1.92 mill/uL (4.70-6.10); White Blood Cell (WBC) Count 10.6 thou/uL (4.8-10.8)
[2017-07-21 05:28] LABS: ALT (SGPT) 15 U/L (8-55); AST (SGOT) 24 U/L (5-34); Albumin 2.2 g/dL (3.4-4.8); Alkaline Phosphatase 52 U/L (40-150); Anion Gap 5 mmol/L (10-20); BUN (Urea Nitrogen) 13 mg/dL (8.4-25.7); Bilirubin, Total 0.6 mg/dL (0.2-1.2); Calc. Creatinine Clearance 62 mL/min (70-130); Calcium 7.9 mg/dL (7.8-10.44); Carbon Dioxide 31 mmol/L (23-31); Chloride 104 mmol/L (98-107); Estimated GFR-MDRD Greater than 90; Globulin 2.4 g/dL (2.4-3.5); Glucose 94 mg/dL (83-110); Potassium 4.1 mmol/L (3.5-5.1); Protein, Total 4.6 g/dL (5.8-8.1); Sodium 136 mmol/L (136-145)
[2017-07-21] MEDS: Ciprofloxacin 500 MG TAB PO SCH ×2 (05:46→20:30)
[2017-07-21] MEDS ORDERED: Sodium Chloride 0.9% 500 ML IV SCH (07:00)
--- NOTE | 2017-07-21 07:22 | PDOC.FM ---
- Subjective Subjective: Patient states he feels fine today. If he sits upright, he feels pressure from his abdomen causing it to be difficult to breath. He notes breathing be just a bit more difficult than when he originally came to hospital but was not on oxygen at home. He does have COPD but only used symbicort at home. He has been denying the duonebs here bc he thinks it made his breathing worse. He has taken some ensure overnight and has this at home which is where he gets the largest portion of his nutrition. - Objective MAR Reviewed: Yes Vital Signs & Weight: Vital Signs (12 hours) Temp Pulse Resp BP Pulse Ox 07/21/17 04:00 98.9 F 110 H 18 105/57 L 99 07/21/17 00:00 98.6 F 85 16 95/52 L 100 07/20/17 20:00 98.8 F 92 20 115/56 L 100 Weight Admit Weight 56.812 kg Weight 66.723 kg I&O: 07/20/17 07/21/17 07/22/17 06:59 06:59 06:59 Intake Total 1000 1267 Output Total 2024 3599 Balance -1024 -7161 Result Diagrams: 07/21/17 04:38 07/21/17 04:38 Phys Exam - Physical Examination Constitutional: NAD HEENT: moist MMs Respiratory: no wheezing, no rales, no rhonchi, clear to auscultation bilateral decreased breath sound posterior lower lobes Cardiovascular: no significant murmur regular rhythm, tachy Gastrointestinal: soft, non-tender, no distention trace to 1+ edema in feet bilaterally Psychiatric: normal affect, A&O x 3 Skin: cap refill <2 seconds Dx/Plan (1) Retroperitoneal hematoma Code(s): K66.1 - HEMOPERITONEUM Status: Acute (2) Acute blood loss anemia Code(s): D62 - ACUTE POSTHEMORRHAGIC ANEMIA Status: Acute (3) Pulmonary embolism during current hospitalization Code(s): I26.99 - OTHER PULMONARY EMBOLISM WITHOUT ACUTE COR PULMONALE Status : Acute (4) Severe sepsis Code(s): A41.9 - SEPSIS, UNSPECIFIED ORGANISM; R65.20 - SEVERE SEPSIS WITHOUT SEPTIC SHOCK Status: Resolved (5) UTI (urinary tract infection) due to urinary indwelling catheter Code(s): T83.511A - I/I REACT D/T INDWELLING URETHRAL CATHETER, INIT; N39.0 - URINARY TRACT INFECTION, SITE NOT SPECIFIED Status: Suspected (6) Transaminitis Code(s): R74.0 - NONSPEC ELEV OF LEVELS OF TRANSAMNS & LACTIC ACID DEHYDRGNSE Status: Acute (7) Macrocytic anemia Code(s): D53.9 - NUTRITIONAL ANEMIA, UNSPECIFIED Status: Chronic (8) Alcohol abuse Code(s): F10.10 - ALCOHOL ABUSE, UNCOMPLICATED Status: Chronic (9) BPH (benign prostatic hyperplasia) Code(s): N40.0 - BENIGN PROSTATIC HYPERPLASIA WITHOUT LOWER URINRY TRACT SYMP Status: Chronic (10) HTN (hypertension) Code(s): I10 - ESSENTIAL (PRIMARY) HYPERTENSION Status: Chronic (11) Malnourished Code(s): E46 - UNSPECIFIED PROTEIN-CALORIE MALNUTRITION Status: Chronic (12) Peripheral edema Code(s): R60.9 - EDEMA, UNSPECIFIED Status: Chronic (13) Acute kidney injury Code(s): N17.9 - ACUTE KIDNEY FAILURE, UNSPECIFIED Status: Resolved (14) Thrombocytopenia Code(s): D69.6 - THROMBOCYTOPENIA, UNSPECIFIED Status: Resolved - Plan Plan: 76 yr old male who presented to hospital and found to be in sepsis Retroperitoneal Hematoma -s/p 1 unit PRBC -hgb has fluctuated daily between 7.1 and 7.7 since the transfusion however this AM is decreased to 7.1 and he is noticeably dyspnic when oxygen weaned. May consider transfusion prior to DC. A -repeat hgb prior to DC. acute blood loss anemia on macrocytic anemia -b12 and folate wnl -see retroperitoneal hematoma Bilateral pulmonary embolism -now s/p IVC filter placement -anticoagulation contraindicated. GEENVIEVE- resolved, likely 2/2 to acute blood loss -FENA on 07/19 suggesting pre renal cause chronic Hep B -Hep B PCR quant elevated -Outpt followup malnourished -supplements provided. -poor albumin BPH -chronic indwelling catheter for severe urinary retention with plan for HH to change catheter 1x/ month -f/u Dr. Cho outpt -review of Dr. 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 -recommend outpatient follow up with urology to consider suprapubic catheter. gallbladder sludge -s/p MRI abdomen with no acute findings -no futher w/u transaminitis -Resolved -thought to be 2/2 chronic hepatitis B and alcoholism thrombocytopenia-RESOLVED Possible DC today or tomorrow pending oxygen requirement.
[2017-07-21] MEDS: PROVENTIL INHALER 6.7 G (200 INHALATIONS) INH PRN ×4 (07:52→14:16)
[2017-07-21] MEDS: Mometasone/Formoterol 120 PUFF INHALER INH SCH ×2 (07:54→19:37)
[2017-07-21] MEDS: Calcium Citrate 950 MG TAB PO SCH (08:20)
[2017-07-21] MEDS: Folic Acid 1 MG TAB PO SCH (08:21)
[2017-07-21] MEDS: Multivitamin W/ Minerals 1 TAB PO SCH (08:21)
[2017-07-21] MEDS: Finasteride 5 MG TAB PO SCH (08:25)
--- NOTE | 2017-07-21 16:57 | EKG ---
Test Reason : Blood Pressure : / mmHG Vent. Rate : 084 BPM Atrial Rate : 084 BPM P-R Int : 196 ms QRS Dur : 072 ms QT Int : 396 ms P-R-T Axes : 081 078 085 degrees QTc Int : 467 ms Normal sinus rhythm Low voltage QRS Septal infarct , age undetermined Abnormal ECG Confirmed by CHRISTI MCKEON, MARY ([id number]), rewrite editor CHELLY ANTONIO ([id number]) on 07/21/2017 4:56:55 PM Referred By: Confirmed By:MARY BARRAZA MD
[2017-07-21 20:06] LABS: Hemoglobin 8.9 g/dL (14.0-18.0); Platelet Count 215 thou/uL (130-400)
[2017-07-22 05:21] LABS: Hemoglobin 8.3 g/dL (14.0-18.0); Platelet Count 220 thou/uL (130-400)
[2017-07-22] MEDS: Ciprofloxacin 500 MG TAB PO SCH ×2 (05:22→21:13)
[2017-07-22 05:32] LABS: Anion Gap 5 mmol/L (10-20); BUN (Urea Nitrogen) 9 mg/dL (8.4-25.7); Calc. Creatinine Clearance 81 mL/min (70-130); Calcium 8.1 mg/dL (7.8-10.44); Carbon Dioxide 34 mmol/L (23-31); Chloride 103 mmol/L (98-107); Estimated GFR-MDRD Greater than 90; Glucose 99 mg/dL (83-110); Potassium 3.9 mmol/L (3.5-5.1); Sodium 138 mmol/L (136-145)
--- NOTE | 2017-07-22 07:36 | PDOC.FM ---
- Subjective Subjective: Patient reports feeling well this morning. He is ready to go home. He reports baseline SOB at home. He reports being able to sit up on his own on his couch at home but decline sitting up to chair in hospital. Alcohol cessation counseling again discussed and patient states "I thought we said we are going to quit that." Patient denies abdominal pain, body pain, chest pain. He only complains of some difficulty breathing. - Objective Vital Signs & Weight: Vital Signs (12 hours) Temp Pulse Resp BP Pulse Ox 07/22/17 04:00 98.1 F 89 20 130/72 100 07/22/17 00:00 98.8 F 94 20 136/72 97 07/21/17 20:00 98.2 F 92 20 132/69 97 07/21/17 19:39 95 07/21/17 19:37 96 15 90 L Weight Admit Weight 56.812 kg Weight 67.268 kg I&O: 07/21/17 07/22/17 07/23/17 06:59 06:59 06:59 Intake Total 1267 1630 Output Total 3600 1425 Balance -2333 205 Result Diagrams: 07/22/17 04:39 07/22/17 04:39 Phys Exam - Physical Examination Constitutional: NAD HEENT: moist MMs Respiratory: no wheezing decreased breath sounds bilateral lower lobes Cardiovascular: RRR, no significant murmur Gastrointestinal: soft, non-tender, no distention, positive bowel sounds 2+ bilateral feet edema up to calf Neurological: non-focal Psychiatric: normal affect, A&O x 3 Skin: cap refill <2 seconds Dx/Plan (1) Retroperitoneal hematoma Code(s): K66.1 - HEMOPERITONEUM Status: Acute (2) Acute blood loss anemia Code(s): D62 - ACUTE POSTHEMORRHAGIC ANEMIA Status: Acute (3) Pulmonary embolism during current hospitalization Code(s): I26.99 - OTHER PULMONARY EMBOLISM WITHOUT ACUTE COR PULMONALE Status : Acute (4) Severe sepsis Code(s): A41.9 - SEPSIS, UNSPECIFIED ORGANISM; R65.20 - SEVERE SEPSIS WITHOUT SEPTIC SHOCK Status: Resolved (5) UTI (urinary tract infection) due to urinary indwelling catheter Code(s): T83.511A - I/I REACT D/T INDWELLING URETHRAL CATHETER, INIT; N39.0 - URINARY TRACT INFECTION, SITE NOT SPECIFIED Status: Suspected (6) Transaminitis Code(s): R74.0 - NONSPEC ELEV OF LEVELS OF TRANSAMNS & LACTIC ACID DEHYDRGNSE Status: Acute (7) Macrocytic anemia Code(s): D53.9 - NUTRITIONAL ANEMIA, UNSPECIFIED Status: Chronic (8) Alcohol abuse Code(s): F10.10 - ALCOHOL ABUSE, UNCOMPLICATED Status: Chronic (9) BPH (benign prostatic hyperplasia) Code(s): N40.0 - BENIGN PROSTATIC HYPERPLASIA WITHOUT LOWER URINRY TRACT SYMP Status: Chronic (10) HTN (hypertension) Code(s): I10 - ESSENTIAL (PRIMARY) HYPERTENSION Status: Chronic (11) Malnourished Code(s): E46 - UNSPECIFIED PROTEIN-CALORIE MALNUTRITION Status: Chronic (12) Peripheral edema Code(s): R60.9 - EDEMA, UNSPECIFIED Status: Chronic (13) Acute kidney injury Code(s): N17.9 - ACUTE KIDNEY FAILURE, UNSPECIFIED Status: Resolved (14) Thrombocytopenia Code(s): D69.6 - THROMBOCYTOPENIA, UNSPECIFIED Status: Resolved (15) COPD (chronic obstructive pulmonary disease) Status: Chronic (16) Chronic respiratory failure with hypoxia Code(s): J96.11 - CHRONIC RESPIRATORY FAILURE WITH HYPOXIA Status: Acute - Plan Plan: 76 yr old male who presented to hospital and found to be in sepsis Retroperitoneal Hematoma -s/p 2 unit PRBC (07/18 & 07/22) -hgb improved from 7.1 to 8.9 after 1 unit PRBC yesterday which seems a little falsely elevated, however is at 8.3 today. -cont Ferrous sulfate supplement BID. -Follow up outpatient for repeat H/H in 1 week. chronic hypoxic respiratory failure -likely 2/2 COPD with acute pulmonary embolism -will arrange home O2 acute blood loss anemia on macrocytic anemia -b12 and folate wnl -see retroperitoneal hematoma -BID ferrous sulfate Bilateral pulmonary embolism -now s/p IVC filter placement -anticoagulation contraindicated. COPD -cont symbicort BID -cont albuterol PRN -prefer to keep O2 sat at 92-94% -recommend up in chair daily but patient has declined this. GENEVIEVE- resolved, likely 2/2 to acute blood loss -FENA on 07/19 suggesting pre renal cause chronic Hep B -Hep B PCR quant elevated -Outpt followup with Dr. Brian malnourished -TID ensure- have encouraged him to continue this at home. -poor albumin BPH -chronic indwelling catheter for severe urinary retention with plan for HH to change catheter 1x/ month -f/u Dr. Cho outpt -review of Dr. Cho's notes suggests a cystocopy has been done in last 4 months showing 4 cm prostate wtih bilobar hypertrophy and bladder trabeculation blindness alcohol abuse -cessation counseling provided and patient agreeable. 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 -recommend outpatient follow up with urology to consider suprapubic catheter. gallbladder sludge -s/p MRI abdomen with no acute findings -no futher w/u transaminitis -Resolved -thought to be 2/2 chronic hepatitis B and alcoholism thrombocytopenia-RESOLVED hyperkalemia -RESOLVED Plan for DC later today. Discussed discharge plan with patient's at length. Will require home O2 since patient is hypoxic with exertion dropping to 83% on RA. Suspect this is exacerbated by recent pulmonary embolism. Patient has home health for chronic indwelling catheter.
[2017-07-22] MEDS: Aspirin 325 MG TAB PO SCH (08:09)
[2017-07-22] MEDS: Folic Acid 1 MG TAB PO SCH (08:10)
[2017-07-22] MEDS: Ferrous Sulfate 325 MG TAB PO SCH ×2 (08:10→16:21)
[2017-07-22] MEDS: Finasteride 5 MG TAB PO SCH (08:10)
[2017-07-22] MEDS: Multivitamin W/ Minerals 1 TAB PO SCH (08:10)
[2017-07-22] MEDS: PROVENTIL INHALER 6.7 G (200 INHALATIONS) INH PRN ×5 (09:24→19:37)
[2017-07-22] MEDS: Mometasone/Formoterol 120 PUFF INHALER INH SCH ×2 (10:26→19:35)
--- NOTE | 2017-07-22 11:13 | PDOC.EVN ---
Event Note - Event Note Event Note: Went to check on patient since having him try a trial sitting up in bed. Upon entering room, patient appeared to be in obvious distress and O2 sat was reading at 72%. His oxygen had fallen down his face and nasal canula was on his chest. Upon questioning him, he was able to shake his head that he was not ok. His speech seemed garbled and he then motioned toward his mouth and mucous was obvious in back of his throat. I ran to nurses station to obtain suction and called a toan parmar. As soon as suction was hooked up, a large amount of phlegm was suction from patient's throat. He immediately appeared to be in less distress and o2 sats were improved to 99% on 2 lts. He had another coughing spell while nurses and myself in room and was able to demonstrate using his suction and more phlegm removed. He did not have a strong cough and stated he felt weak coughing. Tried to sit patient in chair position in bed and he did not like this position and requested to be laid more flat. He is deemed unsafe to be up in chair due to fall risk and blindness. A stat CXR ordered. An urgent ECHO ordered to evaluate for change in pericardial effusion which was noted on ECHO on 07/16/17.
--- NOTE | 2017-07-22 13:10 | RAD ---
PORTABLE CHEST: Date: 07/22/17 HISTORY: Hypoxia. Dyspnea. COMPARISON: 07/15/17. FINDINGS: Heart size is within normal limits with atherosclerotic changes of aorta. Lungs appear hyperexpanded. Some increased density in the lung bases suggesting small effusions. IMPRESSION: 1. COPD type changes. 2. Small bilateral pleural effusions, left larger than right. POS: [facility]
[2017-07-22] MEDS ORDERED: Furosemide 20 MG TAB PO SCH (14:30)
--- NOTE | 2017-07-22 15:08 | ADD-PRG ---
ADDENDUM Patient was seen and evaluated and examined and discussed with residents, please see note from Dr. Kwame houston, which I concur. Basically, gentleman is stable from recent hematoma. Blood count dropped a lit tle bit despite diuresis and he is a little bit fluid overloaded, so the thought would be to give him a little extra unit of blood today, but his chest has decreased breath sounds from COPD, but definit nic no crackles. CARDIOVASCULAR: Regular rate and rhythm. EXTREMITIES: Show trace to 1+ pitting. It sounds like his baseline. Other than the hemoglobin being slightly low, everything else seems pretty stable. We will give him a unit of blood and follow his oxygen levels today, is a little bit low. We may have to get him set up for home oxygen. It sounds like he has got caregivers at home and not much difference will be don e at home, then is really having in the hospital right now as he is very stable otherwise, so we will see how he does with today and may end up having to discharge him tomorrow depending on how quickly we can get the blood in, etc.
--- NOTE | 2017-07-22 15:12 | ADD-PRG ---
DATE OF SERVICE: 07/22/2017 ADDENDUM The patient was seen and evaluated and examined with the residents by bedside. Please see Dr. Azeb Samuel's progress note for which I concur. The main issue with this gentleman is when we can send him home. We he gets upright, he states it seems to compress his breathing almost like his stomach tamika le bit distended and seem to get more short of breath and he was desatting slightly and getting a lit tle bit more short of breath with that. It does not sound like he is orthostatic or lightheaded when this is happening, just slow increase in shortness of breath, but otherwise it sounds like at home, he actually has pretty much lays around the couch all day. Not interested in physical therapy and th ings are fairly stable after the retroperitoneal hematoma. I did review the CT and see no evidence o f that hematomas anywhere near the IVC that would be compressing it. He is not extremely edematous o r anything like that, so I do not think this is a cardiac output issue on sitting upright. I think t his is likely just what affects the COPD. So more likely, as long as we can get him on oxygen should be able to go home on oxygen and same medications including inhalers and diuretics as he does seem t o be doing better on diuretics. Recommend low dose aspirin therapy, although does have the IVC, whic h should be beneficial as far as preventing DVT or progression of DVT.
[2017-07-23 05:13] LABS: Hemoglobin 8.5 g/dL (14.0-18.0); Platelet Count 206 thou/uL (130-400)
[2017-07-23 05:32] LABS: Anion Gap 7 mmol/L (10-20); BUN (Urea Nitrogen) 6 mg/dL (8.4-25.7); Calc. Creatinine Clearance 83 mL/min (70-130); Calcium 7.9 mg/dL (7.8-10.44); Carbon Dioxide 33 mmol/L (23-31); Chloride 100 mmol/L (98-107); Estimated GFR-MDRD Greater than 90; Glucose 95 mg/dL (83-110); Potassium 3.7 mmol/L (3.5-5.1); Sodium 136 mmol/L (136-145)
[2017-07-23] MEDS: Ciprofloxacin 500 MG TAB PO SCH ×2 (05:46→20:09)
--- NOTE | 2017-07-23 08:08 | DIS-2 ---
TRANSITION OF CARE DATE OF ADMISSION: 07/10/2017 ADMITTING ATTENDING: Dr. Magy Torres. RESIDENT: Dr. Azeb Samuel. CONSULTATIONS: Made to; 1. Dr. Jas Guillermo of Urology. 2. Dr. Arellano of Pulmonology. 3. Dr. Torres of Infectious Disease. 4. Dr. Mikhail Dhillon of CV Surgery. PRIMARY DIAGNOSES AT TIME OF TRANSITION SUMMARY: 1. Acute on chronic hypoxic respiratory failure. 2. Acute blood loss anemia on macrocytic anemia secondary to retroperitoneal hematoma. 3. Retroperitoneal hematoma. 4. Bilateral pulmonary embolism. 5. Chronic obstructive pulmonary disease. 6. Chronic hepatitis B. 7. Severe BPH. 8. Acute kidney injury/resolved. 9. Malnourished. 10. Blindness. 11. Sepsis bacteremia secondary to Providencia rettgeri. 12. 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 13. Alcohol abuse. 14. Gallbladder sludge. 15. Transaminitis. 16. Thrombocytopenia. 17. Hyperkalemia. PERTINENT IMAGIN. 07/10/2017- CXR- no evidence of acute cardiopulmonary disease. 2. 07/10/2017- abdomen and pelvis CT which showed some mild generalized fat stranding within the fat slightly more prominent than the ascending colon region. There was some air density along the right colon wall. Possibility of colitis should be considered. There is also distended bladder with an enlarged prostate. There is mild gallbladder distention. An emphysematous lung change. 3. Abdominal ultrasound- 07/12/2017, which showed echogenic material in the lumen of the gallbladder, but cannot rule out a sludge versus mucosal based mass lesion. 4. abdominal MRI- 07/13/2017 which showed material within the gallbladder that likely represent either sludge or non-shadowing stones. No enhancement is seen to suggest an enhancing mass. There are tiny bilateral renal cysts. 5. echocardiogram- 07/11/2017. This showed overall left ventricular function was normal. Ejection fraction was visually estimated at 50%-55%. Right ventricle global systolic function, moderately reduced. Moderately enlarged right ventricle cavity. Mild mitral regurgitation present and mild tricuspid regurgitation. 6. knee x-ray- 07/12/2017. This showed severe arthritic changes of the knee. 7. CXR- 07/15/2017, which showed suboptimal evaluation of the medial left lung base due to overlying cardiac silhouette. Mild patchy increased density. Atelectasis versus pneumonia at the left lung base is suggestion, follow up PA and lateral chest x-ray recommended. 8. Chest CTA- 07/15/2017, which showed pulmonary emboli seen within the segmental pulmonary branches of the lower lobes bilaterally. There is a prominence of the right ventricle and right atrium with reflux of contrast into the hepatic veins, which can be seen with right heart strain. There is also interval development of mild to moderate bilateral pleural effusions that have developed since 07/10/2017. 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 9. venogram- 07/15/2017, which showed no evidence of DVT in bilateral lower extremities. 10. abdomen and pelvis CT- 07/17/2017 which showed a large right retroperitoneal hematoma involving the iliacus muscle and the right posterior perirenal space extending down to the pelvis. There is a focus of active extravasation within the right iliac muscle. There is extensive third spacing of fluid. There is absence of contrast enhancement of the bilateral femoral arteries, although there is contrast in the deep femoral arteries. A CT angiogram may be beneficial to evaluate for vascular occlusion versus phase of contrast. 11.CXR- 07/22/2017. This showed COPD type changes and small bilateral pleural effusions, left larger than right. There was an echocardiogram done on 2017. This showed ejection fraction estimated to be 60%-65%. Mild LVH. Mildly dilated RV and reduced RV systolic function. Mild enlarged right atrium size. Mild mitral regurgitation. Calcified aortic valve with decreased cusp opening. Mild aortic stenosis. Mild tricuspid regurgitation. Moderate-sized pericardial effusion without tamponade. 12. 07/22/2017- repeat echocardiogram performed secondary to acute hypoxic respiratory failure. This showed ejection fraction visually estimated at greater than 60%-65%. Normal size of the right ventricle cavity. Left atrium of normal size. Mitral annular calcification present. Aortic valve calcification. Mild tricuspid regurgitation. Small trivial pericardial effusion and a large pleural effusion. HISTORY OF PRESENT ILLNESS/HOSPITAL COURSE: This is a 76-year-old male with a past medical history of hypertension as well as severe BPH witH chronic indwelling catheter, who presented to the ER after having hematuria at home. The patient was found to have low blood pressures upon admission of 88/50 and these improved to 100 systolic after 4 liters of normal saline. The patient had an elevated lactic acid at that time, which improved over the course of this hospital stay, status post fluids. The patient was admitted to the [facility] at that time, and was treated for urosepsis with vancomycin and Zosyn as well as Cipro secondary to a recently treated urinary tract infection which was sensitive to Cipro. The patient's urine and blood cultures grew out respectively Sphingobacterium and Providencia rettgeri. Dr. Torres of Infectious Disease was consulted and recommended continuing the patient on Cipro p.o. for an additional 2 weeks. The patient was also at admission found to have a transaminitis and routine hepatitis panels were done and patient was found to have a chronic hepatitis B infection. Hepatitis B DNA was obtained and the patient is to follow up with Dr. Torres in the outpatient setting to consider having any treatment done. In regard to sepsis and urinary tract infection, the patient was ready for discharge on approximately 07/15/2017; however, upon the time of discharge, the patient sat up and became noticeably dyspneic as well as tachycardic and diaphoretic, and a workup for a pulmonary embolism was completed and found to have bilateral pulmonary emboli as described above. It is to be noted that at the time of admission, the patient had a severe thrombocytopenia with platelets as low as 42 and therefore, the decision was made to withhold Lovenox. After finding a pulmonary embolism. The patient was placed on a heparin drip and surprisingly, the patient's platelets improved to as high as 250. The patient is thought to be a very poor candidate for anticoagulation and in fact likely contraindicated secondary to the fact that he is blind and has had multiple falls within the last year. Therefore, it was discussed and the patient underwent an IVC filter placement by Dr. Mikhail Dhillon. Late on the day after his procedure for the IVC filter, patient's hemoglobin was noted to have dropped from 9.9-8.2. The patient was experiencing some abdominal pain at that time and patient was sent for an urgent abdominal CT scan which did show the large retroperitoneal bleed as noted above. The patient's heparin had already been stopped at this point and patient's hemoglobin was trended with the plan to check it every 4 hours and transfuse for hemoglobin less than 7 unless the patient became symptomatic. Upon this finding, CV Surgery as well as General Surgery were both notified and requested recommendations, both stated that surgery would not be an option at this point for such a hematoma and recommended the checking hemoglobin and transfusing as needed. The patient seemed to stabilize after the first unit of blood and his hemoglobin jumped around from 7.6-7.9 over the course of several days. It was thought that the bleed was likely resolved. Patient at this point had visibly noticeable edema in bilateral lower extremities which to some degree patient did have at the time of admission. However, seemed to have worsened and decision was made to attempt diuresis. The patient responded very well to diuresis and put off approximately 5.5 liters over the course of 2 days. At this point, patient's hemoglobin dropped down to 7.1 and a transfusion was done of 1 unit of packed red blood cells on 07/21/2017 and patient's hemoglobin improved from 7.1-8.9. The following day, the patient's hemoglobin was 8.3, which is on the day of this dictation. It was thought that the patient may be a candidate to be discharged today; however, the patient was requiring 2 liters of nasal cannula and the patient was preferentially lying flat in bed and did not like to be sat up. The patient was encouraged to sit up so that he would be able to handle his drive home, but upon sitting up and being checked on patient was noticed to be in some respiratory distress and his oxygen had fallen off since and patient had a large amount of phlegm that he was unable to completely expectorate. Therefore, a suction was obtained and upon suctioning of the phlegm, patient improved significantly. Decision was made to go ahead and monitor patient for at least an additional 24 hours. In regard to patient's elevated troponin at the time of admission, it was thought that elevated troponins were likely secondary to demand ischemia as patient had had significantly low blood pressures upon the time of admission. The patient's troponins did improve and in fact on the day of the pulmonary embolism finding, his troponins were negative. In light of all this, patient was worked up with an echo, which did not have reduced ejection fraction as noticed above and had no evidence for heart failure. The patient did not experience chest pain at any point throughout his hospital stay; however, he did occasionally complain of shortness of breath. It is to be noted that patient has an extensive smoking history and has fairly impressive COPD changes on his CT as well as x-ray. Following patient's acute blood loss, he did have a slight episode of acute kidney injury which resolved fairly quickly after a couple of fluid boluses and blood transfusion. Of note upon admission, the patient had a transaminitis as well as a low platelet count with a normal INR and this did seem to improve throughout his hospital stay with normal AST, ALT values and platelet count normalized as well. It is noted that the patient had very poor nutrition status and refused to eat through most of his hospitalization. He did accept some Ensure and was continued on this. The patient has severe deconditioning and was recommended to do physical therapy; however, the patient declined doing physical therapy and therefore physical therapy signed off. While it would have been optimal to have patient up in a bedside chair at minimum, it was thought that this was too unsafe secondary to his blindness and high risk for fall. Patient has severe BPH with an enlarged prostate and his outpatient management by Dr. Molina, notes were obtained and it was noted that management was to continue with a chronic indwelling catheter. Therefore, patient was to go home on a chronic indwelling catheter. Patient's condition as of today is stable following the episode with mucus and phlegm production. Of note, there was a repeat echocardiogram done today as there was concern for a pericardial effusion, which was not significant on echocardiogram. The patient did note to have pleural effusions on both chest x- ray and echocardiogram and therefore the patient was given additional diuretics. Please see next resident management to continue this hospitalization. CLARA
[2017-07-23] MEDS: Finasteride 5 MG TAB PO SCH (08:20)
[2017-07-23] MEDS: Aspirin 325 MG TAB PO SCH (08:20)
[2017-07-23] MEDS: Multivitamin W/ Minerals 1 TAB PO SCH (08:20)
[2017-07-23] MEDS: Folic Acid 1 MG TAB PO SCH (08:21)
[2017-07-23] MEDS: Ferrous Sulfate 325 MG TAB PO SCH ×2 (08:21→16:57)
[2017-07-23] MEDS: PROVENTIL INHALER 6.7 G (200 INHALATIONS) INH PRN ×4 (08:55→19:09)
[2017-07-23] MEDS: Mometasone/Formoterol 120 PUFF INHALER INH SCH ×2 (08:55→19:07)
--- NOTE | 2017-07-23 10:27 | PDOC.FM ---
- Subjective Subjective: Patient lying flat in bed this morning with no complaints. He was tachycardic overnight but asymptomatic. Rate of 100-120 bpm. No issues sleeping, eating, or using the bathroom. - Objective MAR Reviewed: Yes Vital Signs & Weight: Vital Signs (12 hours) Temp Pulse Resp BP BP Pulse Ox 07/23/17 08:55 115 H 16 07/23/17 07:24 98.2 F 112 H 16 145/86 H 100 07/23/17 03:56 98.7 F 111 H 18 137/76 99 07/23/17 00:00 98.2 F 83 20 130/66 98 Weight Admit Weight 56.812 kg Weight 64.274 kg I&O: 07/22/17 07/23/17 07/24/17 06:59 06:59 06:59 Intake Total 1630 840 Output Total 1425 2350 Balance 205 -1510 Result Diagrams: 07/23/17 04:30 07/23/17 04:30 <Pipo Alegria C - Last Filed: 07/23/17 10:25> - Objective Vital Signs & Weight: Vital Signs (12 hours) Temp Pulse Resp BP BP Pulse Ox 07/23/17 11:24 98.6 F 108 H 18 122/72 100 07/23/17 08:55 115 H 16 07/23/17 07:24 98.2 F 112 H 16 145/86 H 100 07/23/17 03:56 98.7 F 111 H 18 137/76 99 Weight Admit Weight 56.812 kg Weight 64.274 kg I&O: 07/22/17 07/23/17 07/24/17 06:59 06:59 06:59 Intake Total 1630 840 Output Total 1425 2350 Balance 205 -1510 Result Diagrams: 07/23/17 04:30 07/23/17 04:30 <Eugene Sim - Last Filed: 07/23/17 12:15> Phys Exam - Physical Examination HEENT: moist MMs Neck: no nodes, no JVD Respiratory: no wheezing decreased breath sounds bilaterally Cardiovascular: RRR, no significant murmur Gastrointestinal: soft, non-tender 1+ pitting edema to mid bae bilaterally Neurological: moves all 4 limbs Psychiatric: normal affect, A&O x 3 <Pipo Alegria - Last Filed: 07/23/17 10:25> Dx/Plan (1) Retroperitoneal hematoma Code(s): K66.1 - HEMOPERITONEUM Status: Acute Plan: -2/2 IVC filter placement -s/p 2u PRBC, with stable Hg this AM -will need close f/u outpatient (2) Acute blood loss anemia Code(s): D62 - ACUTE POSTHEMORRHAGIC ANEMIA Status: Acute Plan: -MCV elevated but B12 and folate normal indicating a multifactorial etiology -likely 2/2 retroperitoneal bleed from IVC filter placement -Hg has stabilized, no s/s of further blood loss (3) Chronic respiratory failure with hypoxia Code(s): J96.11 - CHRONIC RESPIRATORY FAILURE WITH HYPOXIA Status: Acute Plan: -patient has baseline COPD complicated by PE while in hospital -he likely has a history of numerous emboli given his history, risk facotrs, and need for oxygen -he will be sitting up in bed today so that we can monitor his respiratory reserve -home oxygen upon d/c (4) Pulmonary embolism during current hospitalization Code(s): I26.99 - OTHER PULMONARY EMBOLISM WITHOUT ACUTE COR PULMONALE Status : Resolved Plan: -IVC filter placed -chemical anticoagulation contraindicated due to visual impairment and high fall risk (5) COPD (chronic obstructive pulmonary disease) Status: Chronic Plan: -continue symbicort and albuterol -O2 to remain between 90-94% (6) Alcohol abuse Code(s): F10.10 - ALCOHOL ABUSE, UNCOMPLICATED Status: Chronic Plan: -no withdraw sxs while in hospital -couselled extensively regarding cessation (7) BPH (benign prostatic hyperplasia) Code(s): N40.0 - BENIGN PROSTATIC HYPERPLASIA WITHOUT LOWER URINRY TRACT SYMP Status: Chronic Plan: -chronic indwelling persaud catheter managed in OP setting by Dr. Cho, who has done recent cystoscopy -will be changed by HH monthly (8) Macrocytic anemia Code(s): D53.9 - NUTRITIONAL ANEMIA, UNSPECIFIED Status: Chronic Plan: see above (9) Malnourished Code(s): E46 - UNSPECIFIED PROTEIN-CALORIE MALNUTRITION Status: Chronic Plan: -encouraged increased PO intake -continue ensure TID supplementation (10) UTI (urinary tract infection) due to urinary indwelling catheter Code(s): T83.511A - I/I REACT D/T INDWELLING URETHRAL CATHETER, INIT; N39.0 - URINARY TRACT INFECTION, SITE NOT SPECIFIED Status: Suspected Plan: -sepsis resolved, continue Cipro (day 10 of 14) -chronically colonized 2/2 indwelling persaud catheter (11) Blindness Code(s): H54.7 - UNSPECIFIED VISUAL LOSS Status: Chronic - Plan Plan: -bolus with 500cc of NS and monitor response; bolus additional 500cc if tachycardia not improved -monitor O2 saturation while patient sits up in bed today -set up home oxygen <Pipo Alegria - Last Filed: 07/23/17 10:25> Attending Addendum - Attending Addendum Date/Time: 07/23/17 1213 I personally evaluated the patient and discussed the management with Dr. Alegria. I agree with the History, Examination, Assessment and Plan documented above with any addition or exceptions noted below. Patient improved today. His Hgb counts are stable and so unlikely that he is continuing to bleed into his hematoma. He continues on supplemental O2 therapy, and we are waiting for outpatient O2 therapy approval. He had code Green yesterday due to difficulty with expectorating mucous. We will start Mucinex today and ensure he does not have issues with this again. If he does well and can sit up without desaturations, consider discharge home tomorrow. <Eugene Sim - Last Filed: 07/23/17 12:15>
[2017-07-23] MEDS ORDERED: Sodium Chloride 0.9% 500 ML IV SCH (10:30)
[2017-07-23 13:20] VITALS: BMI 19.8
--- NOTE | 2017-07-23 13:20 | EKG ---
Test Reason : Blood Pressure : / mmHG Vent. Rate : 109 BPM Atrial Rate : 109 BPM P-R Int : 156 ms QRS Dur : 070 ms QT Int : 370 ms P-R-T Axes : 079 067 049 degrees QTc Int : 498 ms Sinus tachycardia Low voltage QRS Nonspecific T wave abnormality Abnormal ECG When compared with ECG of 10-JUL-2017 20:11, (Unconfirmed) No significant change was found Confirmed by DR. Ashley HARTMAN ([id number]) on 07/23/2017 1:20:24 PM Referred By: PAT Confirmed By:DR. Ashley HARTMAN
--- NOTE | 2017-07-23 13:22 | EKG ---
Test Reason : Blood Pressure : / mmHG Vent. Rate : 082 BPM Atrial Rate : 082 BPM P-R Int : 158 ms QRS Dur : 072 ms QT Int : 400 ms P-R-T Axes : 062 071 043 degrees QTc Int : 467 ms Sinus rhythm with Premature atrial complexes Low voltage QRS T wave abnormality, consider anterior ischemia Abnormal ECG When compared with ECG of 15-JUL-2017 14:11, (Unconfirmed) Premature atrial complexes are now Present Confirmed by DR. Ashley HARTMAN ([id number]) on 07/23/2017 1:21:40 PM Referred By: PAT Confirmed By:DR. Ashley HARTMAN
[2017-07-23] MEDS: guaiFENesin ER 600 MG TAB PO SCH (20:10)
[2017-07-24 05:10] LABS: Hemoglobin 9.1 g/dL (14.0-18.0); Platelet Count 205 thou/uL (130-400)
[2017-07-24 05:21] LABS: Anion Gap 5 mmol/L (10-20); BUN (Urea Nitrogen) 5 mg/dL (8.4-25.7); Calc. Creatinine Clearance 87 mL/min (70-130); Calcium 7.8 mg/dL (7.8-10.44); Carbon Dioxide 36 mmol/L (23-31); Chloride 100 mmol/L (98-107); Estimated GFR-MDRD Greater than 90; Glucose 115 mg/dL (83-110); Potassium 3.6 mmol/L (3.5-5.1); Sodium 137 mmol/L (136-145)
[2017-07-24] MEDS: PROVENTIL INHALER 6.7 G (200 INHALATIONS) INH PRN ×2 (07:38→14:52)
[2017-07-24] MEDS: Mometasone/Formoterol 120 PUFF INHALER INH SCH (07:40)
[2017-07-24] MEDS: Folic Acid 1 MG TAB PO SCH (08:55)
[2017-07-24] MEDS: Ferrous Sulfate 325 MG TAB PO SCH ×2 (08:55→17:59)
[2017-07-24] MEDS: guaiFENesin ER 600 MG TAB PO SCH (08:56)
[2017-07-24] MEDS: Aspirin 325 MG TAB PO SCH (08:56)
[2017-07-24] MEDS: Multivitamin W/ Minerals 1 TAB PO SCH (08:56)
[2017-07-24] MEDS: Finasteride 5 MG TAB PO SCH (08:56)
--- NOTE | 2017-07-24 10:53 | PDOC.FM ---
- Subjective Subjective: No acute events overnight. Vital signs stable. No issues per nursing. Patient sat up in bed this morning and maintained oxygen saturation. - Objective MAR Reviewed: Yes Vital Signs & Weight: Vital Signs (12 hours) Temp Pulse Resp BP Pulse Ox 07/24/17 08:00 98.9 F 89 20 100 07/24/17 07:39 98.9 F 89 20 137/75 100 07/24/17 07:38 91 16 100 07/24/17 03:38 98.8 F 83 20 137/78 100 Weight Admit Weight 56.812 kg Weight 62.641 kg I&O: 07/23/17 07/24/17 07/25/17 06:59 06:59 06:59 Intake Total 840 1440 Output Total 2350 1025 Balance -1510 415 Result Diagrams: 07/24/17 04:30 07/24/17 04:30 <Pipo Alegria - Last Filed: 07/24/17 10:51> - Objective Vital Signs & Weight: Vital Signs (12 hours) Temp Pulse Resp BP Pulse Ox 07/24/17 08:00 98.9 F 89 20 100 07/24/17 07:39 98.9 F 89 20 137/75 100 07/24/17 07:38 91 16 100 07/24/17 03:38 98.8 F 83 20 137/78 100 Weight Admit Weight 56.812 kg Weight 62.641 kg I&O: 07/23/17 07/24/17 07/25/17 06:59 06:59 06:59 Intake Total 840 1440 Output Total 2350 1025 Balance -1510 415 Result Diagrams: 07/24/17 04:30 07/24/17 04:30 <Eugene Sim - Last Filed: 07/24/17 11:11> Phys Exam - Physical Examination Constitutional: NAD HEENT: moist MMs Respiratory: no wheezing, no rales Cardiovascular: RRR, no significant murmur Gastrointestinal: soft, non-tender, no distention Neurological: moves all 4 limbs Psychiatric: normal affect, A&O x 3 <Pipo Alegria - Last Filed: 07/24/17 10:51> Dx/Plan (1) Retroperitoneal hematoma Code(s): K66.1 - HEMOPERITONEUM Status: Acute Plan: -2/2 IVC filter placement -s/p 2u PRBC, with stable Hg this AM (9.1) -will need close f/u outpatient (2) Acute blood loss anemia Code(s): D62 - ACUTE POSTHEMORRHAGIC ANEMIA Status: Acute Plan: -MCV elevated but B12 and folate normal indicating a multifactorial etiology -likely 2/2 retroperitoneal bleed from IVC filter placement -Hg has stabilized, no s/s of further blood loss (3) Chronic respiratory failure with hypoxia Code(s): J96.11 - CHRONIC RESPIRATORY FAILURE WITH HYPOXIA Status: Acute Plan: -patient has baseline COPD complicated by PE while in hospital -he likely has a history of numerous emboli given his history, risk factors, and need for oxygen -he sat up in bed today and maintained his O2 sats -home oxygen upon d/c (4) Pulmonary embolism during current hospitalization Code(s): I26.99 - OTHER PULMONARY EMBOLISM WITHOUT ACUTE COR PULMONALE Status : Resolved Plan: -IVC filter placed -chemical anticoagulation contraindicated due to visual impairment and high fall risk (5) COPD (chronic obstructive pulmonary disease) Status: Chronic Plan: -continue symbicort and albuterol -O2 to remain between 90-94% (6) Alcohol abuse Code(s): F10.10 - ALCOHOL ABUSE, UNCOMPLICATED Status: Chronic Plan: -no withdraw sxs while in hospital -couselled extensively regarding cessation (7) BPH (benign prostatic hyperplasia) Code(s): N40.0 - BENIGN PROSTATIC HYPERPLASIA WITHOUT LOWER URINRY TRACT SYMP Status: Chronic Plan: -chronic indwelling persaud catheter managed in OP setting by Dr. Cho, who has done recent cystoscopy -will be changed by HH monthly (8) Macrocytic anemia Code(s): D53.9 - NUTRITIONAL ANEMIA, UNSPECIFIED Status: Chronic Plan: see above (9) Malnourished Code(s): E46 - UNSPECIFIED PROTEIN-CALORIE MALNUTRITION Status: Chronic Plan: -encouraged increased PO intake -continue ensure TID supplementation (10) UTI (urinary tract infection) due to urinary indwelling catheter Code(s): T83.511A - I/I REACT D/T INDWELLING URETHRAL CATHETER, INIT; N39.0 - URINARY TRACT INFECTION, SITE NOT SPECIFIED Status: Suspected Plan: -sepsis resolved, continue Cipro (day 10 of 14) -chronically colonized 2/2 indwelling persaud catheter (11) Blindness Code(s): H54.7 - UNSPECIFIED VISUAL LOSS Status: Chronic - Plan Plan: -discharge today with oxygen <Pipo Alegria - Last Filed: 07/24/17 10:51> Attending Addendum - Attending Addendum Date/Time: 07/24/17 1110 I personally evaluated the patient and discussed the management with Dr. Alegria. I agree with the History, Examination, Assessment and Plan documented above with any addition or exceptions noted below. Patient doing well this morning. Blood counts stable. He is not hypoxic on rising from supine position once he takes deep breaths. Once his home O2 is approved (will likely be a chronic need 2/2 clot burden in his lungs), he should be stable for discharge home. He will need follow up with PCP in the next 2-3 days. <Eugene Sim - Last Filed: 07/24/17 11:11>
[2017-07-24 15:44] VITALS: BP 152/79; TEMP 98.9
== END 2017-07-24 18:03 | disposition home health service (06) | DRG 673 ==
LOC: ERS 16:19 → IMCU/EMU 18:40 → T4-B 07-11 14:15 → 2NO 07-15 16:20
PROVIDERS: ADMIT Student in an Organized Health Care Education/Training Program; ATTEND Student in an Organized Health Care Education/Training Program
PROC: 06H03DZ Insertion of Intraluminal Device into Inferior Vena Cava, Percutaneous Approach (ICD-10-PCS; principal; 2017-07-17)
PROC: B5191ZZ Fluoroscopy of Inferior Vena Cava using Low Osmolar Contrast (ICD-10-PCS; 2017-07-17)
DX: T83.511A Infection and inflammatory reaction due to indwelling urethral catheter, initial encounter (principal); I26.99 Other pulmonary embolism without acute cor pulmonale; K66.1 Hemoperitoneum; A41.9 Sepsis, unspecified organism; R65.20 Severe sepsis without septic shock; E43 Unspecified severe protein-calorie malnutrition; D62 Acute posthemorrhagic anemia; E46 Unspecified protein-calorie malnutrition; J96.11 Chronic respiratory failure with hypoxia; N17.9 Acute kidney failure, unspecified; B18.1 Chronic viral hepatitis B without delta-agent; Z68.1 Body mass index [BMI] 19.9 or less, adult; I24.8 Other forms of acute ischemic heart disease; N39.0 Urinary tract infection, site not specified; R74.0 Nonspecific elevation of levels of transaminase and lactic acid dehydrogenase [LDH]; F10.10 Alcohol abuse, uncomplicated; N40.0 Benign prostatic hyperplasia without lower urinary tract symptoms; I10 Essential (primary) hypertension; R60.9 Edema, unspecified; D69.6 Thrombocytopenia, unspecified; J44.9 Chronic obstructive pulmonary disease, unspecified; H54.7 Unspecified visual loss; Z86.73 Personal history of transient ischemic attack (TIA), and cerebral infarction without residual deficits; E87.6 Hypokalemia; E83.42 Hypomagnesemia; K82.9 Disease of gallbladder, unspecified; K74.60 Unspecified cirrhosis of liver; B96.89 Other specified bacterial agents as the cause of diseases classified elsewhere; R53.81 Other malaise; Z74.01 Bed confinement status; K52.9 Noninfective gastroenteritis and colitis, unspecified; F12.10 Cannabis abuse, uncomplicated; E83.51 Hypocalcemia
CPT/HCPCS: 36415; 36416; 36430; 37191; 71045; 71275; 74176; 74177; 74183; 76705; 76942; 80048; 80053; 80202; 81001; 82553; 82570; 82607; 82747; 82805; 83605; 83735; 83880; 84300; 84484; 85014; 85018; 85025; 85049; 85379; 85610; 85730; 86704; 86705; 86706; 86708; 86780; 86803; 86850; 86900; 86901; 87040; 87077; 87086; 87149; 87186; 87340; 87350; 87389; 87517; 87521; 93005; 93010; 93306; 93970; 94640; 96361; 96365; 96366; 96367; A4216; C1769; G8978-GP-CN; G8979-GP-CN; G8980-GP-CN; G8981-GP-CM; G8982-GP-CK; G8987-GO-CM; G8988-GO-CK; G8988-GO-CM; G8989-GO-CM; J0744; J1644; J1940; J2001; J2543; J3370; J3411; J3475; J3480; J7042; J7050; J7620; P9016

== ENCOUNTER 2017-07-29 04:21 | Inpatient (IN) | payer MEDICARE ==
[2017-07-29 05:13] LABS: #Basophils 0.1 thou/uL (0.0-0.2); #Eosinphils 0.2 thou/uL (0.0-0.7); #Lymphocytes 2.2 thou/uL (1.20-3.40); #Monocytes 1.7 thou/uL (0.11-0.59); #Neutrophils 10.3 thou/uL (1.40-6.50); %Basophils 0.5 % (0.0-1.0); %Eosinophils 1.4 % (0.0-10.0); %Lymphocytes 15.5 % (21.0-51.0); %Monocytes 11.5 % (0.0-10.0); %Neutrophils 71.1 % (42.0-75.0); Hemoglobin 11.4 g/dL (14.0-18.0); Mean Corpuscular HGB CONC 31.7 g/dL (32.0-36.0); Mean Corpuscular Hemoglobin 34.2 pg (27.0-31.0); Mean Platelet Volume 6.2 fL (7.4-10.4); Platelet Count 327 thou/uL (130-400); Red Blood Cell (RBC) Count 3.33 mill/uL (4.70-6.10); White Blood Cell (WBC) Count 14.4 thou/uL (4.8-10.8)
[2017-07-29] MEDS ORDERED: Diltiazem 125 MG/25 ML ONE (05:28)
[2017-07-29 05:32] LABS: ALT (SGPT) 12 U/L (8-55); AST (SGOT) 29 U/L (5-34); Albumin 2.9 g/dL (3.4-4.8); Alkaline Phosphatase 61 U/L (40-150); BUN (Urea Nitrogen) 9 mg/dL (8.4-25.7); Bilirubin, Total 0.9 mg/dL (0.2-1.2); Calc. Creatinine Clearance 0 mL/min (70-130); Calcium 9.2 mg/dL (7.8-10.44); Estimated GFR-MDRD Greater than 90; Globulin 3.8 g/dL (2.4-3.5); Glucose 130 mg/dL (83-110); Protein, Total 6.7 g/dL (5.8-8.1)
[2017-07-29 05:35] LABS: CKMB 3.1 ng/mL (0-6.6); Troponin I Less than 0.010 ng/mL (< 0.028)
[2017-07-29 05:42] LABS: Chloride 92 mmol/L (98-107); Potassium 3.7 mmol/L (3.5-5.1); Sodium 140 mmol/L (136-145)
[2017-07-29 05:45] LABS: Anion Gap 13 mmol/L (10-20); Carbon Dioxide 39 mmol/L (23-31)
[2017-07-29] MEDS ORDERED: Diltiazem 125 MG in Sodium Chloride 0.9% 100 ML IVPB SCH (05:45)
--- NOTE | 2017-07-29 07:00 | PDOC.FPRHP ---
- History of Present Illness Chief Complaint: SOB History of Present Illness: 76 yo M presents to the ED with complain of gradual onset SOB over the past 2 days. He has a hx of COPD, HTN, chronic hep B, etoh abuse and a recent hospitalization for severe sepsis that was complicated by a PE and IVC filter placement. Since his hospitalization he has taken very little PO stating that he just hasnt felt hungry or thirsty. He states that he felt that he wasnt getting enough oxygen at home so he asked to come the emergency room. He denies other symptoms such as chest pain, cough, fever, abd pain, or n/v. In the ED he was noted to be in new onset afib w/RVR with rate as high as132. Additionally, pt had BP as high as 177/117. He was started on a dilt drip in the ED with improvement of HR to 100-110 - Allergies/Adverse Reactions Allergies Allergy/AdvReac Type Severity Reaction Status Date / Time No Known Drug Allergies Allergy Verified 07/10/17 23:48 - Home Medications Medication Instructions Recorded Confirmed Type Finasteride [Proscar] 5 mg PO DAILY 07/10/17 07/29/17 History Nebivolol HCl [Bystolic] 10 mg PO DAILY 07/10/17 07/29/17 History Triamterene/Hydrochlorothiazid 1 cap PO DAILY 07/10/17 07/29/17 History [Triamterene-Hctz 37.5-25 mg Cp] amLODIPine Bes/Olmesartan Med 1 each PO DAILY 07/10/17 07/29/17 History [Reuben 5-20 mg Tablet] Multivitamin W/ Minerals 1 tab PO DAILY tab 07/15/17 07/29/17 Rx [Theragran M] Aspirin 325 mg PO DAILY #30 tab 07/22/17 07/29/17 Rx Budesonide-Formoterol [Symbicort 1 puff INH BID #1 aer 07/22/17 07/29/17 Rx 160-4.5] Ferrous Sulfate [Feosol] 325 mg PO BID-WM #60 tab 07/22/17 07/29/17 Rx Folic Acid [Folvite] 1 mg PO DAILY #30 tab 07/22/17 07/29/17 Rx Furosemide 20 mg PO DAILY PRN #30 tablet 07/22/17 07/29/17 Rx Thiamine 100 mg PO DAILY #30 tab 07/22/17 07/29/17 Rx Budesonide-Formoterol [Symbicort 07/29/17 History 160-4.5] - History PMHx: COPD HTN Severe BPH Chronic Hep B Calorie malnutrition hx of PE hx of Retroperitoneal hematoma blindness PSHx: s/p IVC filter FHx: unk Social: 46 pk yr hx of smoking 2 5ths of whisky weekly for years Marijuana use - Review of Systems General: denies: fever/chills, weight/appetite/sleep changes Eyes: denies: vision changes ENT: denies: nasal congestion Respiratory: reports: shortness of breath. denies: cough, congestion Cardiovascular: reports: edema (Chronic in LE). denies: chest pain, palpitation Gastrointestinal: reports: diarrhea (x1 3 days ago). denies: nausea, vomiting Genitourinary: reports: other (persaud in place) Skin: denies: rashes, lesions Musculoskeletal: denies: pain, tenderness Neurological: denies: numbness, syncope, seizure Psychological: denies: anxiety, depression - Vital signs BP: 177/117 HR: 132 RR: 28 Tmax: 91.7 Pox: 99% on 4L Wt: 61 kg - Physical Exam Constitutional: NAD, awake, alert and oriented HEENT: normocephalic and atraumatic, grossly normal hearing, other (blind b/l) Neck: trachea midline Chest: no-tender to palpation Heart: RRR, normal S1/S2, other (Dependent pitting edema on posterior portion of LE and abdomen) Lungs: CTAB, no respiratory distress, good air movement, no rales/rhonchi, no wheezing Abdomen: soft, non-tender, bowel sounds present Musculoskeletal: normal tone, other (decreased muscle mass) Neurological: no focal deficit Skin: no rash/lesions, no jaundice Heme/Lymphatic: no unusual bruising or bleeding, no purpura Psychiatric: normal mood and affect, good judgment and insight, intact recent and remote memory FMR H&P: Results - Labs Result Diagrams: 07/29/17 04:46 07/29/17 04:46 Lab results: WBC 14.4 thou/uL (4.8-10.8) H 07/29/17 04:46 Hgb 11.4 g/dL (14.0-18.0) L 07/29/17 04:46 Hct 36.0 % (42.0-52.0) L 07/29/17 04:46 MCV 108.0 fl (80.0-94.0) H 07/29/17 04:46 Plt Count 327 thou/uL (130-400) 07/29/17 04:46 Neutrophils % 71.1 % (42.0-75.0) 07/29/17 04:46 Sodium 140 mmol/L (136-145) 07/29/17 04:46 Potassium 3.7 mmol/L (3.5-5.1) 07/29/17 04:46 Chloride 92 mmol/L (98-107) L 07/29/17 04:46 Carbon Dioxide 39 mmol/L (23-31) H 07/29/17 04:46 BUN 9 mg/dL (8.4-25.7) 07/29/17 04:46 Creatinine 0.73 mg/dL (0.6-1.3) 07/29/17 04:46 Glucose 130 mg/dL (83-110) H 07/29/17 04:46 Lactic Acid 1.2 mmol/L (0.5-2.2) 07/29/17 04:46 Calcium 9.2 mg/dL (7.8-10.44) 07/29/17 04:46 Total Bilirubin 0.9 mg/dL (0.2-1.2) 07/29/17 04:46 AST 29 U/L (5-34) 07/29/17 04:46 ALT 12 U/L (8-55) 07/29/17 04:46 Alkaline Phosphatase 61 U/L (40-150) 07/29/17 04:46 CK-MB (CK-2) 3.1 ng/mL (0-6.6) 07/29/17 04:46 B-Natriuretic Peptide 635.1 pg/mL (0-100) H 07/29/17 04:46 Serum Total Protein 6.7 g/dL (5.8-8.1) 07/29/17 04:46 Albumin 2.9 g/dL (3.4-4.8) L 07/29/17 04:46 - EKG Interpretation EKG: afib w/rvr rate 131 - Radiology Interpretation Chest x-ray Status: image reviewed by me (Rads read pending. No obvious acute process. Lungs appear to hyperinflated c/w COPD) FMR H&P: A/P - Problem List (1) Atrial fibrillation with RVR Current Visit: No Status: Acute Priority: High Code(s): I48.91 - UNSPECIFIED ATRIAL FIBRILLATION (2) Elevated brain natriuretic peptide (BNP) level Current Visit: No Status: Acute Priority: Medium Code(s): R79.89 - OTHER SPECIFIED ABNORMAL FINDINGS OF BLOOD CHEMISTRY (3) BPH (benign prostatic hyperplasia) Current Visit: No Status: Chronic Priority: Low Code(s): N40.0 - BENIGN PROSTATIC HYPERPLASIA WITHOUT LOWER URINRY TRACT SYMP (4) Blindness Current Visit: No Status: Chronic Priority: Low Code(s): H54.7 - UNSPECIFIED VISUAL LOSS (5) COPD (chronic obstructive pulmonary disease) Current Visit: No Status: Chronic Priority: Medium (6) Macrocytic anemia Current Visit: No Status: Chronic Priority: Low Code(s): D53.9 - NUTRITIONAL ANEMIA, UNSPECIFIED (7) Peripheral edema Current Visit: No Status: Chronic Priority: Low Code(s): R60.9 - EDEMA, UNSPECIFIED - Plan New onset afib w/RVR - admit to tele - This is likely precipitated by hypovolemia secondary to decreased oral intake , will give IVF and encourage PO intake - rate improved with IV dilt, will continue on floor - Recent echo shows EF 55-60% - consult cards - first trop negative, continue to trend - low suspicion for infection. Negative CXR. Order UA Hypertensive urgency - no signs of end organ damage - initial pressures have resolved and most recent are normal range. Continue to monitor and treat as indicated Chronic macrocytic anemia - asymptomatic and improved from previous admission Etoh abuse - ASE protocol - corporate counselor on cessation COPD - currently at baseline O2 demand - restart home meds HTN - restart home meds BPH - chronic Persaud dt recent UTI 2/2 obstruction - continue persaud Blindness - baseline Elevated BNP - this has improved from recent admission. Does not appear to be volume overloaded. Likely 2/2 afib Calorie malnutrition - consult nutrition - add ensure to meals - encourage PO intake Peripheral edema - dependent edema from being positioned on his back almost all of the time. At baseline Code Full Diet regular PPx SCD, high risk of bleed w/medical prophylaxis Dispo: Pt is currently stable and asymptomatic. Continue to monitor, develop plan with input from cardiology. Likely length of stay 3-4 days FMR H&P: Upper Level - Pertinent history 76 year old male presents for dyspnea for 2 days. His brother is with him today and helped provide history. He states it started gradually. He denies fever, chills, chest pain, palpitations, cough, sputum production, AP , nausea, vomiting. Had on episode of diarrhea earlier this week. Patient uses 4L O2 at home. He has been eating and drinking very little recently. In the ED he was seen by Dr. Mckinnon. Given Diltiazem bolus, diltiazem drip, aspirin, and 1L NS. Patient was recently hospitalized for severe sepsis. He had a PE during that hospitalization and got a IVC filter. Was not anticoagulated due to risk of falls and retroperitoneal hematoma after IVC filter. - Pertinent findings Vital Signs Temp 98.1 RR 21 HR 115 BP 124/85 O2 sats: 97% on 4L Wt 61.2 kg General Exam General: NAD, AAOx4. Eyes: EOMI, PERRL, nonicteric ENT: MMM. Oropharynx clear. Poor dentition CV: Tachycardic. Irregularly irregular. No m/r/g. Pulses full and equal in all 4 extremities Resp: CTAB. No wheezing, rales, or rhonchi. Breathing unlabored Abd: Soft. Non-distended, nontender. No guarding or rebound. BS+ in all 4 quadrants Extremities: No clubbing, cyanosis. Trace edema of legs bilaterally. Equal movements in all extremities. Skin: No rash or ulcer. No palpable lesions Neuro: CII - XII intact. No focal deficits Psych: Mood and affect appropriate. Judgment and insight intact - Plan Date/Time: 07/29/17 0659 Josh Cardenas DO, have evaluated this patient and agree with findings/plan as outlined by commander internal affairs resident. Pertinent changes/additions are listed here. 76 year old male presents with: 1) Atrial fibrillation with RVR - Admit to telemetry. Continue diltiazem drip. Consider cardiology consult. Volume depletion may have contributed. No obvious infectious source. Check UA/UCx 2) Dyspnea - Likely 2/2 #1 3) History of pulmonary embolism - Symptoms resolved with treatment of a. fib. Suspect that as primary source but recommend reevaluating should symptoms recur or not respond to a. fib 4) HTN - Monitor BPs and treat as needed 5) Deconditioning - Consult PT 6) Alcohol abuse - ASE protocol 7) Leukocytosis - No clear source of infection. Check UA 8) Macrocytic anemia - Stable Attending Addendum - Attending Addendum Date/Time: 07/29/17 1040 I personally evaluated the patient and discussed the management with Dr. Diaz I agree with the History, Examination, Assessment and Plan documented above with any addition or exceptions noted below. 76 yo with new onset AFIB with RVR rate controlled with IV diltiazem. prior IVC placement for recurrent PE and not candidate to anticoagulation due to hematoma at that time. Cardiology to be consulted this AM appreciate recommendations.
[2017-07-29] MEDS ORDERED: Diazepam 5 MG TAB PO PRN (07:51)
[2017-07-29] MEDS ORDERED: Thiamine HCl 200 MG/2 ML VIAL IM SCH (08:00)
[2017-07-29] MEDS ORDERED: Diazepam 5 MG TAB PO SCH (08:00)
[2017-07-29] MEDS ORDERED: Acetaminophen 325 MG TAB PO PRN (08:24)
[2017-07-29] MEDS ORDERED: Multivitamin W/ Minerals 1 TAB PO SCH (09:00)
--- NOTE | 2017-07-29 09:09 | RAD ---
ONE VIEW CHEST: HISTORY: Pain. Difficulty breathing. COMPARISON: 07/22/17. FINDINGS: Persistent hyperinflation and emphysematous changes. Stable cardiac silhouette. Small bilateral ple ural effusions may be present. No pneumothorax. IMPRESSION: 1. Hyperinflation. Emphysema. 2. Small bilateral pleural effusions. POS: [facility]
[2017-07-29 09:38] LABS: Troponin I 0.011 ng/mL (< 0.028)
[2017-07-29] MEDS: Folic Acid 1 MG TAB PO SCH (11:09)
[2017-07-29] MEDS: Sodium Chloride 0.9% 1,000 ML IV SCH ×2 (11:19→18:11)
[2017-07-29 11:21] LABS: Troponin I Less than 0.010 ng/mL (< 0.028)
[2017-07-29 12:13] LABS: Magnesium 1.5 mg/dL (1.6-2.6); Phosphorus 2.2 mg/dL (2.3-4.7)
[2017-07-29 14:06] LABS: Bilirubin Moderate (Negative); Blood, Urine Trace (Negative); Clarity CLEAR (Clear); Glucose, Urine (Dipstick) Negative (Negative); Leukocyte Negative (Negative); Nitrite Negative (Negative); Protein, Urine (Dipstick) 30 mg/dL (Neg-Trace); Specific Gravity, Urine 1.018 (1.002-1.036); pH, Urine 5.5 (5.0-9.0)
[2017-07-29 14:08] LABS: Bacteria/HPF None Seen HPF (None Seen); Hyaline Casts/LPF 4-6 HYALINE CAST LPF (0-3 Hyaline); Pathc Cast-AUWi Flag 0.58 (0-2.49); Squamous Epithelial 0-3 HPF (0-3)
[2017-07-29] MEDS ORDERED: Furosemide 20 MG/2 ML VIAL SLOW IVP SCH (17:00)
[2017-07-29] MEDS ORDERED: Magnesium Sulfate 4 GM in Sodium Chloride 0.9% 250 ML 250 ML IVPB SCH (17:30)
[2017-07-29] MEDS ORDERED: Dronedarone HCl 400 MG TAB PO SCH (21:00)
--- NOTE | 2017-07-30 03:27 | CON ---
DATE OF CONSULTATION: 07/29/2017 HISTORY: Mikhail Pena is a pleasant, 76-year-old, black male, who was just hospitalized here on 07/10/2017. He was diagnosed as having severe sepsis during that admission, also he was found to have bilateral lower lobe pulmonary emboli. Abdominal and pelvis CT showed a large right retroperitoneal hematoma involving the iliacus muscle. Ultrasound of lower extremities revealed no evidence of DVT. It was felt that he should not be anticoagulated due to being blind in a significant fall risk and ultimately an inferior vena cava filter was placed. He ultimately was discharged on 07/22/2017. He now returns complaining of an increased shortness of breath over the last 2 days. He denies any chest pain or palpitations. In the emergency room, he was noted to be in atrial fibrillation with fast ventricular response of 132 per minute. He was started on Cardizem drip, and ultimately, he has converted to sinus rhythm. PAST MEDICAL HISTORY: Significant for hypertension, chronic hepatitis B, history of PE, history of retroperitoneal hematoma, blindness, COPD, hypertension, BPH. SURGERY: IVC filter. HOME MEDICATIONS: Proscar 5 mg daily, Bystolic 10 mg daily, triamterene/ hydrochlorothiazide 1 daily, amlodipine/olmesartan (Reuben) 5/20 daily, multivitamin daily, Symbicort 1 puff daily, ferrous sulfate 325 b.i.d., Folvite 1 mg daily, furosemide 20 mg p.r.n., thiamine 100 mg daily. ALLERGIES: None. SOCIAL HISTORY: He has a [id number] smoking history. He drinks two-fifths of whiskey weekly and use marijuana. REVIEW OF SYSTEMS: Twelve-point review of systems otherwise unremarkable. PHYSICAL EXAMINATION: VITAL SIGNS: Blood pressure 150/76, pulse of 82. HEENT: PERRL. NECK: Supple. CHEST: Reveals distant breath sounds. CARDIAC: S1 and S2 are normal, without any S3, S4 or murmurs. ABDOMEN: Normal bowel sounds. EXTREMITIES: Revealed 1+ pretibial edema. NEUROLOGIC: Grossly intact except for blindness. LABORATORY AND DIAGNOSTIC DATA: EKG revealed atrial fibrillation with fast ventricular response of 131 per minute with low voltage. Hemoglobin 11.4, hematocrit 36.0, white count 14,400. Cardiac enzymes were unremarkable. TSH was normal. Sodium 140, potassium 3.7, chloride 92, carbon dioxide 39, BUN 9, creatinine 0.73. ASSESSMENT: 1. New onset atrial fibrillation with fast ventricular response will certainly could be related to his pulmonary emboli. His rate has been controlled with intravenous diltiazem and he was then converted to sinus rhythm. 2. Not an anticoagulation candidate due to blindness and concern of frequent falls as well as a finding of a retroperitoneal hematoma on last admission. 3. History of bilateral pulmonary emboli with inferior vena cava filter placement 2 weeks ago. 4. Blindness. 5. Chronic obstructive pulmonary disease. 6. EtOH abuse. 7. Hypertension. 8. Anemia. RECOMMENDATIONS: Mr. Pena is not a candidate for anticoagulation. He has converted to sinus rhythm. We will place him on Multaq in the hopes of maintaining sinus rhythm, going forward. Echocardiogram has been repeated. He continued to have normal left ventricular function and no significant changes from before. I will follow the patient with you. CLARA
[2017-07-30] MEDS ORDERED: Diazepam 5 MG TAB PO PRN (04:00)
[2017-07-30 05:22] LABS: #Eosinphils 0.2 thou/uL (0.0-0.7); #Lymphocytes 0.8 thou/uL (1.20-3.40); #Monocytes 0.8 thou/uL (0.11-0.59); #Neutrophils 5.8 thou/uL (1.40-6.50); %Basophils 0.5 % (0.0-1.0); %Eosinophils 2.3 % (0.0-10.0); %Monocytes 10.7 % (0.0-10.0); %Neutrophils 76.5 % (42.0-75.0); Hemoglobin 9.2 g/dL (14.0-18.0); Mean Corpuscular HGB CONC 31.6 g/dL (32.0-36.0); Mean Corpuscular Hemoglobin 33.9 pg (27.0-31.0); Mean Platelet Volume 5.9 fL (7.4-10.4); Platelet Count 211 thou/uL (130-400); RBC Distribution Width 15.1 % (11.5-14.5); Red Blood Cell (RBC) Count 2.71 mill/uL (4.70-6.10); White Blood Cell (WBC) Count 7.6 thou/uL (4.8-10.8)
[2017-07-30 05:51] LABS: BUN (Urea Nitrogen) 5 mg/dL (8.4-25.7); Calc. Creatinine Clearance 92 mL/min (70-130); Calcium 8.3 mg/dL (7.8-10.44); Estimated GFR-MDRD Greater than 90; Glucose 106 mg/dL (83-110); Magnesium 1.9 mg/dL (1.6-2.6); Phosphorus 2.4 mg/dL (2.3-4.7)
[2017-07-30 06:01] LABS: Anion Gap 8 mmol/L (10-20); Chloride 92 mmol/L (98-107); Potassium 3.4 mmol/L (3.5-5.1); Sodium 139 mmol/L (136-145)
[2017-07-30 06:04] LABS: Carbon Dioxide 42 mmol/L (23-31)
[2017-07-30 08:15] LABS: pH, Arterial 7.26 (7.35-7.45)
[2017-07-30 08:16] LABS: Actual Bicarbonate (HCO3a) 50.6 mEq/L (22-26); Base Excess (BEa) 19.4 mEq/L (0 (+/-) 2.5); Hematocrit-ABG 34.1 % (42.0-52.0); Hemoglobin (Hb) 10.1 g/dL (14.0-18.0); O2 Tension (PaO2) 47.9 mmHg (80.0-100.0)
[2017-07-30 08:17] LABS: Analyzer IN Cardio OR; Calcium, Ionized 1.2 mmol/L (1.12-1.30); Carboxyhemoglobin (COHb) 2.4 gm% (0.0-3.0); Potassium - ABG Lab 3.7 mmol/L (3.70-5.30); Puncture Site RBRACH
[2017-07-30] MEDS ORDERED: Acetaminophen 325 MG/10.15 ML UDCUP PO PRN (08:18)
[2017-07-30] MEDS ORDERED: Lacri-Lube Opth Oint 3.5 GM TUBE EA EYE PRN (08:18)
[2017-07-30] MEDS ORDERED: CCU Electrolyte Replacement 1 EACH FS ONE (08:18)
[2017-07-30] MEDS ORDERED: Bisacodyl 10 MG SUPP PR PRN (08:18)
[2017-07-30] MEDS ORDERED: CCU Electrolyte Replacement 1 EACH IVPB SCH (08:18)
[2017-07-30] MEDS ORDERED: Acetaminophen 325 MG Suppository PR PRN (08:18)
--- NOTE | 2017-07-30 08:25 | PDOC.EVN ---
Event Note - Event Note Event Note: see Dr. Alegria event note from this am; however, pt noted to be somnolent this am , and labs significant for elevated bicarb at 42. Stat ABG ordered and code green called. Pt found to have pH 7.2, Co2 116. Transferred to ICU for bipap and possible intubation. Discussion was had with NOK, , Terra Pena, who reinforces pt to be full code and to proceed with intubation if required.
[2017-07-30] MEDS ORDERED: Lorazepam 2 MG/ML VIAL SLOW IVP PRN ×2 (08:26→10:22)
[2017-07-30] MEDS ORDERED: Lorazepam 2 MG/ML VIAL ONE (08:26)
[2017-07-30] MEDS ORDERED: Propofol 1,000 MG/100 ML VIAL IV ONE (08:26)
[2017-07-30] MEDS ORDERED: CCU ELECTROLYTE REPLACEMENT PROTOCOL FS PRN (08:30)
[2017-07-30] MEDS ORDERED: Potassium Chloride 40 MEQ in Premix Bag 1 BAG IVPB PRN (08:30)
[2017-07-30] MEDS ORDERED: Magnesium Oxide 400 MG TAB PO PRN ×2 (08:30)
[2017-07-30] MEDS ORDERED: Magnesium 2 GM/NS 0.9% 100 ML 2 GM in Premix Bag 1 BAG IVPB PRN (08:30)
[2017-07-30] MEDS ORDERED: DEXTROSE IV SCH (08:30)
[2017-07-30] MEDS ORDERED: Dextrose 5%-Lactated Ringers 1,000 ML IV SCH (08:30)
[2017-07-30] MEDS ORDERED: Multivit, Adult Inj 10 ML VIAL IV SCH (08:30)
[2017-07-30] MEDS ORDERED: Potassium Chloride 40 MEQ in Sodium Chloride 0.9% 250 ML 250 ML IVPB PRN (08:30)
[2017-07-30] MEDS ORDERED: LACTATED RINGERS IV SCH (08:30)
[2017-07-30] MEDS ORDERED: Potassium Phosphate 9 MMOL in Sodium Chloride 0.9% 100 ML IVPB PRN (08:30)
[2017-07-30] MEDS ORDERED: Potassium Chloride 20 MEQ TAB PO PRN (08:30)
[2017-07-30] MEDS ORDERED: Potassium Phosphate 12 MMOL in Sodium Chloride 0.9% 250 ML 250 ML IV PRN (08:30)
[2017-07-30] MEDS ORDERED: Potassium Phosphate 15 MMOL in Sodium Chloride 0.9% 250 ML 250 ML IV PRN (08:30)
[2017-07-30] MEDS ORDERED: MULTIVITAMINS IV SCH ×2 (08:30→12:00)
[2017-07-30 08:36] LABS: Hemoglobin 10.6 g/dL (14.0-18.0); Mean Corpuscular HGB CONC 31.2 g/dL (32.0-36.0); Mean Corpuscular Hemoglobin 33.9 pg (27.0-31.0); Mean Platelet Volume 6.5 fL (7.4-10.4); Platelet Count 306 thou/uL (130-400); RBC Distribution Width 15.2 % (11.5-14.5); Red Blood Cell (RBC) Count 3.13 mill/uL (4.70-6.10)
[2017-07-30 08:54] LABS: Lactic Acid 1.1 mmol/L (0.5-2.2)
[2017-07-30] MEDS: Sodium Chloride 0.9% 1,000 ML IV SCH ×3 (09:00→13:05)
[2017-07-30] MEDS ORDERED: Magnesium Oxide 400 MG TAB PO SCH (09:00)
[2017-07-30] MEDS ORDERED: Thiamine HCl 200 MG/2 ML VIAL SLOW IVP SCH (09:00)
[2017-07-30 09:01] LABS: Band 1 % (5-11); Hypochromia MODERATE=16-30 cells (100X) (0-5/hpf); Lymphocytes 14 % (21-51); MDiff Complete? YES; Macrocytosis SLIGHT = 6-15 cells (100X) (0-5/hpf); Monocytes 4 % (0-10); Neutrophil 81 % (42-75)
[2017-07-30 09:02] LABS: PLT Morphology Comment Appears Adequate
--- NOTE | 2017-07-30 09:05 | OP ---
DATE OF SERVICE: 07/30/2017 PROCEDURE: Fiberoptic intubation. PAYROLL EXAMINER: Noah Arellano M.D. INDICATION: Respiratory failure. Bronchoscope was brought to the bedside. Bite block was placed in Mr. Pena's mouth. He cooperate d with this. Scope was passed in his posterior pharyngeal air space. Copious secretions were encoun tered around his glottis and into the proximal part of his trachea was easily intubated. Tube was po sitioned above the main mikhail and secured in place. He had right lower lobe mucous plugging on endo scopic exam. No endobronchial lesions were otherwise seen. All the secretions in his trachea were s uctioned clear. He tolerated the procedure well. He was connected to mechanical ventilation, was gi roni a fluid bolus and started on sedation.
--- NOTE | 2017-07-30 09:10 | PRG ---
DATE OF SERVICE: 07/30/2017 CRITICAL CARE NOTE SUBJECTIVE: Mr. Pena was transferred to the Critical Care Unit with a pCO2 greater than 100 and unresponsiveness. I was consulted to intubate him. I saw him in consultation on the intermediate care unit earlier this admission. He was seen yesterday by Cardiology. He is extremely cachectic. He has had an inferior vena cava filter placed for thromboembolic disease, and was felt to be at high risk for anticoagulation. No significant obstructive lung disease and significant cachexia. PHYSICAL EXAMINATION: GENERAL: He is poorly responsive. He would follow commands if stimulated. VITAL SIGNS: He is afebrile, heart rate is in the 70s, respiratory rate is 18, oximetry is 99. LUNGS: Remarkable for distant breath sounds. CARDIOVASCULAR: Regular rhythm. ABDOMEN: Soft. LABORATORY DATA: PH 7.26, CO2 of 116, pO2 of 47. Sodium 139, potassium 3.4, chloride 92, bicarbonate 42, BUN 5, creatinine 0.6. White count 13, hemoglobin 10.6, platelets 306,000. IMPRESSION: 1. Extreme cachexia with obstructive lung disease. 2. Blindness. 3. Chronic liver disease. 4. Recent urine culture showing multiple pathogens and venous blood showing multiple pathogens as well that matched urine cultures. He is a FULL CODE. I believe he is approaching end of life, just simply because of his cachexia. Recommend intubation and support. He would benefit from a tracheostomy if family wants to continue with aggressive care. He will obviously require placement in a fulltime care environment. Palliative care input will be appreciated. Critical care time 40 minutes excluding procedures. CLARA
[2017-07-30 10:09] LABS: CO2 Tension 79.2 mmHg (35.0-45.0); pH, Arterial 7.37 (7.35-7.45)
[2017-07-30 10:10] LABS: Actual Bicarbonate (HCO3a) 44.9 mEq/L (22-26); Calcium, Ionized 1.1 mmol/L (1.12-1.30); Carboxyhemoglobin (COHb) 2.2 gm% (0.0-3.0); Hematocrit-ABG 29.2 % (42.0-52.0); Hemoglobin (Hb) 9.1 g/dL (14.0-18.0); O2 Tension (PaO2) 114.3 mmHg (80.0-100.0); Potassium - ABG Lab 3.2 mmol/L (3.70-5.30); Puncture Site LRA
[2017-07-30] MEDS ORDERED: Fentanyl BOLUS 250 ML IVPB PRN (10:22)
[2017-07-30] MEDS ORDERED: Propofol BOLUS 1,000 MG/100 ML VIAL IV PRN (10:22)
[2017-07-30] MEDS ORDERED: DISCONTINUE PREVIOUS NARCOTIC PAIN MEDICATIONS AND BENZODIAZEPINES FS SCH (10:22)
[2017-07-30] MEDS ORDERED: Morphine 4 MG/ML VIAL SLOW IVP PRN (10:22)
[2017-07-30] MEDS ORDERED: fentaNYL Citrate/PF 2,000 MCG in Sodium Chloride 0.9% 60 ML IV SCH (10:30)
[2017-07-30] MEDS ORDERED: fentaNYL Citrate/PF 2,000 MCG in Sodium Chloride 0.9% 60 ML IV PRN (10:30)
--- NOTE | 2017-07-30 10:51 | RAD ---
ONE VIEW CHEST: History: Respiratory distress. Intubated patient. Comparison: 07-29-17 FINDINGS: Interval placement of endotracheal and nasogastric tubes. The side hole of the nasogastric tube is li jensen just beyond the GE junction. Atherosclerosis of the aorta. Normal cardiac silhouette. The lungs are hyperinflated. Stable pleural and parenchymal changes in the lung bases. No pneumothorax. IMPRESSION: 1. Interval placement of endotracheal and nasogastric tube as above. 2. Hyperinflation. Pleural and parenchymal changes in the lung bases are redemonstrated. POS: [facility]
[2017-07-30] MEDS: Famotidine/PF 20 mg/2ml Vial SLOW IVP SCH ×2 (11:07→20:06)
--- NOTE | 2017-07-30 11:30 | PDOC.EVN ---
Event Note - Event Note Event Note: Patient with a bicarb of 42 this morning. He was somnolent with gasping breaths , a significant change from his baseline. A code green was called and and ABG showed 7.258/116/48. Prior records show he is a full code and was admitted under full code status yesterday. Patients was called and confirmed that status. Patient was moved to ICU and intubated and sedated with propofol.
--- NOTE | 2017-07-30 11:32 | PDOC.FM ---
- Subjective Subjective: Patient intubated and sedated s/p code green this morning. Please see event notes for further details. Family is en route at this time. - Objective MAR Reviewed: Yes Vital Signs & Weight: Vital Signs (12 hours) Temp Pulse Pulse Pulse Pulse Resp Resp 07/30/17 10:28 66 07/30/17 08:59 93 07/30/17 08:04 98.2 F 83 83 80 90 32 H 32 H 07/30/17 04:00 97.9 F 71 18 Resp Resp BP BP BP BP BP 07/30/17 10:28 110/64 07/30/17 08:59 109/71 07/30/17 08:04 32 H 28 H 180/80 H 177/87 H 132/73 180/80 H 07/30/17 04:00 BP Pulse Ox Pulse Ox Pulse Ox Pulse Ox 07/30/17 10:28 07/30/17 08:59 07/30/17 08:04 77 L 73 L 98 100 07/30/17 04:00 127/65 99 Weight Weight 64.3 kg I&O: 07/29/17 07/30/17 07/31/17 06:59 06:59 06:59 Intake Total 790 Output Total 1500 Balance -710 Result Diagrams: 07/30/17 08:06 07/30/17 05:00 Phys Exam - Physical Examination intubated and sedated; severely cachectic Neck: no JVD Respiratory: no rales, no rhonchi Cardiovascular: RRR, no significant murmur Gastrointestinal: soft, non-tender, no distention Musculoskeletal: no edema Skin: no rash Dx/Plan (1) Acute on chronic respiratory failure with hypercapnia Code(s): J96.22 - ACUTE AND CHRONIC RESPIRATORY FAILURE WITH HYPERCAPNIA Status: Acute Plan: -intubated per Pulmonology -continue sedation with propofol -repeat ABGs daily -Vent setting still being optomized at the time of this note (2) History of pulmonary embolism Code(s): Z86.711 - PERSONAL HISTORY OF PULMONARY EMBOLISM Status: Acute Plan: -last hospitalization suffered bilateral pulmonary emboli and underwent IVC filter placement -no anticoagulation due to risk factors (3) Atrial fibrillation with RVR Code(s): I48.91 - UNSPECIFIED ATRIAL FIBRILLATION Status: Acute Plan: -evaluated by Cardiology who recommend Multaq; also recommend against anticoagulation -converted to SR overnight with dilt gtt (4) Retroperitoneal hematoma Code(s): K66.1 - HEMOPERITONEUM Status: Resolved Plan: -s/p IVC filter placement during last hospitalization -Hg stable, continue to monitor (5) BPH (benign prostatic hyperplasia) Code(s): N40.0 - BENIGN PROSTATIC HYPERPLASIA WITHOUT LOWER URINRY TRACT SYMP Status: Chronic Plan: -chronic indwelling persaud catheter due to severe BPH -treated during last hospitalization for sepsis 2/2 UTI (6) Blindness Code(s): H54.7 - UNSPECIFIED VISUAL LOSS Status: Chronic (7) COPD (chronic obstructive pulmonary disease) Status: Chronic (8) Macrocytic anemia Code(s): D53.9 - NUTRITIONAL ANEMIA, UNSPECIFIED Status: Chronic Plan: -hg improved from previous admission likely 2/2 hemoconcentration (9) Malnourished Code(s): E46 - UNSPECIFIED PROTEIN-CALORIE MALNUTRITION Status: Chronic - Plan Plan: -consult palliative for goals of care; unfavorable prognosis at this time -will meet with family as they arrive -continue intubation and sedation -will start multaq for new onset a-fib RVR; no anticoagulation
[2017-07-30] MEDS ORDERED: FOLIC ACID IV SCH (12:00)
[2017-07-30] MEDS ORDERED: [UNRECOGNIZED DRUG - OTHER] IV SCH (12:00)
[2017-07-30] MEDS ORDERED: THIAMINE HCL IV SCH (12:00)
[2017-07-30] MEDS: Folic Acid 1 MG TAB PO SCH (12:14)
[2017-07-30] MEDS ORDERED: Acetaminophen 650 MG Suppository PR PRN (13:15)
[2017-07-30] MEDS ORDERED: Acetaminophen 650 MG/20.3 ML UDCUP PO PRN (13:15)
[2017-07-30] MEDS: Dronedarone HCl 400 MG TAB PO SCH ×2 (14:06→17:36)
--- NOTE | 2017-07-30 14:15 | EKG ---
Test Reason : Blood Pressure : / mmHG Vent. Rate : 131 BPM Atrial Rate : 138 BPM P-R Int : 000 ms QRS Dur : 070 ms QT Int : 272 ms P-R-T Axes : 000 060 098 degrees QTc Int : 401 ms Atrial fibrillation with rapid ventricular response Low voltage QRS Nonspecific T wave abnormality , probably digitalis effect Abnormal ECG Confirmed by SUSHIL SIU ([id number]), deputy editor in chief LIANG WHITAKER ([id number]) on 07/30/2017 2:15:35 PM Referred By: Confirmed By:SUSHIL SIU
[2017-07-30] MEDS: Sodium Chloride 0.45% 1,000 ML IV SCH (14:18)
[2017-07-30] MEDS: Potassium Chloride 20 MEQ in Premix Bag 1 BAG IVPB SCH ×2 (14:27→17:25)
--- NOTE | 2017-07-30 16:03 | ADD-PRG ---
DATE OF SERVICE: 07/30/2017 This is an addendum to the note of Dr. Pipo Alegria. Before I came on this morning, Mr. Pena sust ained respiratory arrest and was subsequently intubated and transferred to ICU. He is currently on a ventilator with stable settings and is also being followed by Dr. Arellano. CURRENT VITAL SIGNS: Blood pressure is now 110/64. His pulse rate is 66. We will continue to follo w with the respiratory Service.
--- NOTE | 2017-07-30 16:56 | PDOC.EVN ---
Event Note - Event Note Event Note: Patient's brother, Peyman, was in the hospital this this morning and indicated the family had talked after Mr. Pena was intubated and now would not want him to have CPR if he had cardiac arrest. He requested I call Mr. Pena's to discuss this further. I called Mrs. Terra Pena and informed her that we have to do what Mr. Pena wanted prior to being intubated- which is full code. She indicated they discussed as a family and do not want "his ribs cracked in order to do CPR." She understood that we must carry out Mr. Pena' s wishes. I explained that for now we are waiting to see if Mr. Pena will be weanable from the vent, but there could come a time when he would require a tracheostomy. She indicated that a trach is something he never wanted. I informed her that we would keep her updated on his status. She stated, "please call day or night." She also stressed that she is in very bad medical condition herself and if she came up here she may need to be admitted herself. I told her for now she did not need to come to the hospital tonight, but it may be helpful in the coming days to have a family meeting. She does note Mr. Pena having a MPOA and his brother will bring it to the hospital however they do not have a living will.
[2017-07-30] MEDS: Propofol 1,000 MG/100 ML VIAL IV PRN (19:20)
[2017-07-31] MEDS ORDERED: Sodium Chloride 0.9% 1,000 ML IV SCH (00:45)
[2017-07-31] MEDS ORDERED: Albumin 25% 25 GM/100 ML BOT IVPB SCH (00:45)
[2017-07-31 06:02] LABS: BUN (Urea Nitrogen) 6 mg/dL (8.4-25.7); Calc. Creatinine Clearance 91 mL/min (70-130); Estimated GFR-MDRD Greater than 90; Glucose 95 mg/dL (83-110)
[2017-07-31 06:07] LABS: Anion Gap 14 mmol/L (10-20); Calcium 8.5 mg/dL (7.8-10.44); Carbon Dioxide 30 mmol/L (23-31); Chloride 98 mmol/L (98-107); Phosphorus 1.5 mg/dL (2.3-4.7); Sodium 138 mmol/L (136-145)
[2017-07-31] MEDS: Albumin 25% 25 GM/100 ML BOT IVPB SCH ×4 (06:31→23:15)
[2017-07-31] MEDS: Sodium Chloride 0.45% 1,000 ML IV SCH ×6 (06:32→21:31)
[2017-07-31 06:43] LABS: Band 6 % (5-11); Eosinophils 2 % (0-10); Hemoglobin 11.6 g/dL (14.0-18.0); Lymphocytes 14 % (21-51); MDiff Complete? YES; Mean Corpuscular HGB CONC 32.1 g/dL (32.0-36.0); Mean Corpuscular Hemoglobin 34.6 pg (27.0-31.0); Mean Platelet Volume 7.4 fL (7.4-10.4); Neutrophil 78 % (42-75); Platelet Count 157 thou/uL (130-400); RBC Distribution Width 15.4 % (11.5-14.5); Red Blood Cell (RBC) Count 3.33 mill/uL (4.70-6.10); White Blood Cell (WBC) Count 13.2 thou/uL (4.8-10.8)
--- NOTE | 2017-07-31 07:21 | PDOC.FM ---
- Subjective Subjective: Patient intubated and sedated. Per nursing staff, he was fighting the ET all night when sedation was attempted to be weaned with high peak pressures. - Objective MAR Reviewed: Yes Vital Signs & Weight: Vital Signs (12 hours) Temp Pulse Resp BP 07/31/17 04:00 97.9 F 07/31/17 02:20 90 139/79 07/31/17 01:00 97.6 F 07/30/17 23:53 101 H 83/55 L 07/30/17 22:32 118 H 141/79 H 07/30/17 20:00 97.9 F 90 12 Weight Admit Weight 63.957 kg Weight 75.3 kg Most Recent Monitor Data Heart Rate from ECG 90 NIBP 111/66 NIBP BP-Mean 81 Respiration from ECG 12 SpO2 98 I&O: 07/30/17 07/31/17 08/01/17 06:59 06:59 06:59 Intake Total 790 6637.9 Output Total 1500 475 0 Balance -710 6162.9 0 Result Diagrams: 07/31/17 04:21 07/31/17 04:21 EKG Reviewed by me: Yes (NSR) <Azeb Samuel - Last Filed: 07/31/17 08:55> - Objective Vital Signs & Weight: Vital Signs (12 hours) Temp Pulse Resp BP Pulse Ox 07/31/17 08:00 12 07/31/17 07:53 97.6 F 07/31/17 07:39 89 125/69 07/31/17 07:34 104 H 12 99 07/31/17 07:12 97.6 F 90 12 100 07/31/17 04:00 97.9 F 07/31/17 02:20 90 139/79 07/31/17 01:00 97.6 F 07/30/17 23:53 101 H 83/55 L 07/30/17 22:32 118 H 141/79 H Weight Admit Weight 63.957 kg Weight 75.3 kg Most Recent Monitor Data Heart Rate from ECG 147 NIBP 108/70 NIBP BP-Mean 79 Respiration from ECG 12 SpO2 99 I&O: 07/30/17 07/31/17 08/01/17 06:59 06:59 06:59 Intake Total 790 6637.9 114 Output Total 1500 475 5 Balance -710 6162.9 109 Result Diagrams: 07/31/17 04:21 07/31/17 04:21 <Rex Marin - Last Filed: 07/31/17 10:24> Phys Exam - Physical Examination Constitutional: NAD intubated, sedated rhales bilaterally, poor air movement bilaterally, minimal wheezing Cardiovascular: RRR, no significant murmur distant hear sounds Gastrointestinal: soft, non-tender 4+pitting edema in BLE sedated <LizzieAzeb Opal - Last Filed: 07/31/17 08:55> Dx/Plan (1) Acute on chronic respiratory failure with hypercapnia Code(s): J96.22 - ACUTE AND CHRONIC RESPIRATORY FAILURE WITH HYPERCAPNIA Status: Acute Plan: - moved to ICU and intubated on 07/30 after CO2 on ABG of 116 with agonal breathing -currently on pressure support of 10, peep of 5 and rate of 12. Heavily sedated due to fighting the ET all night. -Attempting to wean sedation again. mgmt per pulmonology (2) Atrial fibrillation with RVR Code(s): I48.91 - UNSPECIFIED ATRIAL FIBRILLATION Status: Resolved Plan: -presented with a fib RVR and spontaneously converted to NSR --was being continued on multaq but currently NPO -continues to be in NSR (3) Hypoalbuminemia due to protein-calorie malnutrition Code(s): E46 - UNSPECIFIED PROTEIN-CALORIE MALNUTRITION Status: Chronic Plan: -will discuss goals of care today, palliative care consulted. -may need to initiate tube feeds -started on albumin q 6 hrs by pulm (4) Edema due to hypoalbuminemia Code(s): R60.9 - EDEMA, UNSPECIFIED; E88.09 - OTH DISORDERS OF PLASMA-PROTEIN METABOLISM, NEC Status: Chronic Plan: albumin q6hrs -subsequent poor urinary output (5) History of pulmonary embolism Code(s): Z86.711 - PERSONAL HISTORY OF PULMONARY EMBOLISM Status: Chronic Plan: s/p IVC filter (6) BPH (benign prostatic hyperplasia) Code(s): N40.0 - BENIGN PROSTATIC HYPERPLASIA WITHOUT LOWER URINRY TRACT SYMP Status: Chronic Plan: -chronic indwelling catheter. (7) Alcohol abuse Code(s): F10.10 - ALCOHOL ABUSE, UNCOMPLICATED Status: Chronic (8) Blindness Code(s): H54.7 - UNSPECIFIED VISUAL LOSS Status: Chronic (9) COPD (chronic obstructive pulmonary disease) Status: Chronic Plan: may benefit from a round of steroids. (10) Macrocytic anemia Code(s): D53.9 - NUTRITIONAL ANEMIA, UNSPECIFIED Status: Chronic (11) Malnourished Code(s): E46 - UNSPECIFIED PROTEIN-CALORIE MALNUTRITION Status: Chronic (12) Retroperitoneal hematoma Code(s): K66.1 - HEMOPERITONEUM Status: Resolved Plan: -occured during recent hospitalization after being placed on heparin for Nolan PE' s and then IVC filter placed. -hgb improved and stable. <Azeb Samuel - Last Filed: 07/31/17 08:55> Attending Addendum - Attending Addendum Date/Time: 07/31/17 1019 I personally evaluated the patient and discussed the management with Dr. Samuel and team. I agree with and repeated the History, Examination, Assessment and Plan documented above with any addition or exceptions noted below. On propofol gtt and intubated. Limited history and ROS. Intubated yesterday for acute hypercapneic hypoxic resp failure. Agree with exam. Bedside 2 point DVT screen performed with POCUS. CFV and PV bilaterally compressible with + augmentation bilaterally along 5 cm at each point and both legs. Neuro: RIVERS per nurse, on propofol gtt, APAP prn Resp: on MV, lung protective strategy, being mucomyst, nebs PRN CV: afib with RVR overnight and in room, intermittently breaks with sinus tachycardia; on dronedarone and will give metoprolol IV x 1 FEN/GI: place on PPI, being TF when able and d/c IVF/alb as third spacing and malnourished : FC in place, would diuresis as s/p 6 L plus multiple of albumin Heme/ID: stable; mild WBC with neg PCT, always c/f aspiration post code; will monitor DVT ppx: only IVC filter as recent retroperitoneal bleed and very high fall risk when not intubated/sedated. Pending family discussion will discuss when we can restart pharm ppx in light of critical illness. Family meeting and palliative consultation planned for today. Poor prognosis overall. <Rex Marin - Last Filed: 07/31/17 10:24>
[2017-07-31] MEDS: Dronedarone HCl 400 MG TAB PO SCH ×2 (07:45→17:49)
[2017-07-31] MEDS ORDERED: Magnesium 2 GM/NS 0.9% 100 ML 2 GM in Premix Bag 1 BAG IVPB PRN (08:14)
[2017-07-31] MEDS ORDERED: Potassium Chloride 40 MEQ in Sodium Chloride 0.9% 250 ML 250 ML IVPB PRN (08:14)
[2017-07-31] MEDS ORDERED: Potassium Chloride 20 MEQ TAB PO PRN (08:14)
[2017-07-31] MEDS ORDERED: Potassium Chloride 40 MEQ in Premix Bag 1 BAG IVPB PRN (08:14)
[2017-07-31] MEDS ORDERED: Potassium Phosphate 9 MMOL in Sodium Chloride 0.9% 100 ML IVPB PRN (08:14)
[2017-07-31] MEDS ORDERED: Potassium Phosphate 15 MMOL in Sodium Chloride 0.9% 250 ML 250 ML IV PRN (08:14)
[2017-07-31] MEDS ORDERED: Potassium Phosphate 12 MMOL in Sodium Chloride 0.9% 250 ML 250 ML IV PRN (08:14)
[2017-07-31] MEDS ORDERED: Magnesium Oxide 400 MG TAB PO PRN ×2 (08:14)
[2017-07-31] MEDS ORDERED: CCU ELECTROLYTE REPLACEMENT PROTOCOL FS PRN (08:14)
[2017-07-31 08:23] LABS: Actual Bicarbonate (HCO3a) 37.6 mEq/L (22-26); Base Excess (BEa) 12.1 mEq/L (0 (+/-) 2.5); CO2 Tension 56.4 mmHg (35.0-45.0); Calcium, Ionized 1.1 mmol/L (1.12-1.30); Carboxyhemoglobin (COHb) 2.7 gm% (0.0-3.0); Hematocrit-ABG 26.8 % (42.0-52.0); Hemoglobin (Hb) 7.7 g/dL (14.0-18.0); O2 Tension (PaO2) 60.6 mmHg (80.0-100.0); Potassium - ABG Lab 2.7 mmol/L (3.70-5.30); pH, Arterial 7.44 (7.35-7.45)
[2017-07-31 08:24] LABS: Puncture Site LRA
--- NOTE | 2017-07-31 08:26 | RAD ---
PORTABLE SEMIUPRIGHT FRONTAL CHEST RADIOGRAPH: Date: 07/31/17 COMPARISON: 07/30/17. HISTORY: Ventilated CCU patient. FINDINGS: Stable endotracheal tube and nasogastric tube. Linear density in both upper lobes is again noted, myla dence of emphysematous change. Nasogastric tube extends into the left upper quadrant with side port a t gastroesophageal junction. There is hazy bibasilar density, which is unchanged when compared to the prior examination, and sugge sts a combination of nonspecific pleural fluid and air space disease. These findings are more promine nt on the left than on the right. IMPRESSION: Alveolar and pleural opacity in both lung bases, left greater than right, stable. POS: [facility]
[2017-07-31] MEDS ORDERED: Metoprolol Tartrate 5 MG/5 ML VIAL IVP SCH (09:45)
[2017-07-31] MEDS: Famotidine/PF 20 mg/2ml Vial SLOW IVP SCH ×2 (10:13→20:38)
[2017-07-31] MEDS: Propofol 1,000 MG/100 ML VIAL IV PRN (13:41)
--- NOTE | 2017-07-31 16:09 | PRG ---
DATE OF SERVICE: 07/31/2017 SUBJECTIVE: Mr. Pena is clinically unchanged. When he was given a sedation holiday, he very quickly nods that he wants the tube out and he also very quickly nod that he does not want the tube put back in. PHYSICAL EXAMINATION: VITAL SIGNS: His heart rate is 94, blood pressure 111/60, respiratory rate is 12. LUNGS: Distant and clear. HEART: Regular rhythm. ABDOMEN: Soft. Family has relayed to the nurse's staff that they want him to be a DO NOT RESUSCITATE patient. His palliative care meeting this afternoon. LABORATORY DATA: White count 13.2, hemoglobin 11.6, platelets 157. Sodium 138 , potassium 4, chloride 98, bicarbonate 30, BUN 6, creatinine 0.64. IMPRESSION: 1. Respiratory failure secondary to chronic obstructive pulmonary disease exacerbation combined with severe muscle wasting. 2. Blindness. 3. Heavy alcohol use. 4. Chronic respiratory failure with blood gas now that is closer probably to his baseline. I suspect his baseline pCO2 is about 65. His pH today is 7.44, pCO2 56, pO2 of 60. Withdrawal of care at any time would be appropriate in my opinion. I do not think he will pass away once he is extubated. Critical care time 35 minutes. [facility]
[2017-07-31] MEDS ORDERED: predniSONE 20 MG TAB PO SCH (17:00)
--- NOTE | 2017-07-31 17:39 | PDOC.EVN ---
Event Note - Event Note Event Note: There was a family meeting with Mr. Pena's Terra and brothers Peyman and Mykel today at 1700. Dr. Marin, Joleen Chávez of Palliative care and myself were present. Family revealed that they together do not wish to have heroic resuscitative measures in the event of cardiac arrest. Terra, Mr. Pena's MPOA, verbalized to make the patient DNR. She does not believe that is what he would want. She has also acknowledged his quality of life to be poor. In regards to a tracheostomy, the family, including his , noted that he would not want to live with a tracheostomy. A discussion was had about how to proceed with weaning the patient from the vent vs rapid extubation. Family desires to give him a few more days to see how he does with weaning from the vent. They understand that there is no sure prognosis after extubation at this time. Family was very appreciative of the care Mr. Pena has been receiving. I informed them that I would keep them updated on his progress. <Azeb Samuel - Last Filed: 07/31/17 17:25> Attending Addendum - Attending Addendum Date/Time: 08/01/17 0707 I was present for the entire family meeting. <Rex Marin - Last Filed: 08/01/17 07:07>
[2017-07-31] MEDS: guaiFENesin ER 600 MG TAB PO SCH (20:24)
[2017-07-31] MEDS: Famotidine 20 MG TAB PO SCH (20:40)
[2017-08-01] MEDS: Sodium Chloride 0.45% 1,000 ML IV SCH (03:56)
[2017-08-01 05:27] LABS: Band 13 % (5-11); Hemoglobin 7.8 g/dL (14.0-18.0); MDiff Complete? YES; Mean Corpuscular HGB CONC 32.8 g/dL (32.0-36.0); Mean Corpuscular Hemoglobin 34.8 pg (27.0-31.0); Mean Platelet Volume 6.9 fL (7.4-10.4); Monocytes 5 % (0-10); Neutrophil 82 % (42-75); Platelet Count 138 thou/uL (130-400); RBC Distribution Width 15.4 % (11.5-14.5); Red Blood Cell (RBC) Count 2.23 mill/uL (4.70-6.10); White Blood Cell (WBC) Count 6.9 thou/uL (4.8-10.8)
[2017-08-01 05:43] LABS: Anion Gap 11 mmol/L (10-20); BUN (Urea Nitrogen) 5 mg/dL (8.4-25.7); Calc. Creatinine Clearance 107 mL/min (70-130); Calcium 8.4 mg/dL (7.8-10.44); Carbon Dioxide 36 mmol/L (23-31); Chloride 96 mmol/L (98-107); Estimated GFR-MDRD Greater than 90; Glucose 119 mg/dL (83-110); Magnesium 1.8 mg/dL (1.6-2.6); Phosphorus 2.4 mg/dL (2.3-4.7); Potassium 3.2 mmol/L (3.5-5.1); Sodium 140 mmol/L (136-145)
[2017-08-01] MEDS: Albumin 25% 25 GM/100 ML BOT IVPB SCH (06:38)
[2017-08-01 07:40] LABS: Actual Bicarbonate (HCO3a) 35.9 mEq/L (22-26); Base Excess (BEa) 10.4 mEq/L (0 (+/-) 2.5); CO2 Tension 55.4 mmHg (35.0-45.0); Hematocrit-ABG 25.7 % (42.0-52.0); Hemoglobin (Hb) 7.8 g/dL (14.0-18.0); O2 Tension (PaO2) 59.6 mmHg (80.0-100.0); pH, Arterial 7.43 (7.35-7.45)
[2017-08-01 07:41] LABS: Calcium, Ionized 1.1 mmol/L (1.12-1.30); Carboxyhemoglobin (COHb) 2.9 gm% (0.0-3.0); Puncture Site LRA
[2017-08-01 07:44] LABS: Analyzer IN Cardio ER
[2017-08-01] MEDS: predniSONE 20 MG TAB PO SCH (08:16)
[2017-08-01] MEDS: Propofol 1,000 MG/100 ML VIAL IV PRN ×2 (08:16→23:59)
[2017-08-01] MEDS: Dronedarone HCl 400 MG TAB PO SCH ×2 (08:16→17:11)
[2017-08-01] MEDS: Famotidine 20 MG TAB PO SCH (08:17)
[2017-08-01] MEDS: guaiFENesin ER 600 MG TAB PO SCH ×2 (08:17→20:14)
[2017-08-01 08:40] LABS: Hemoglobin 8.2 g/dL (14.0-18.0); Platelet Count 132 thou/uL (130-400)
--- NOTE | 2017-08-01 08:58 | PDOC.FM ---
Addendum entered and electronically signed by Azeb Samuel MD 08/01/17 09:56 : PE: Gen: intubated, mild sedation, following commands cardiac: RRR, no M/R/G Lungs: rhales/rhonchi bilaterally, some air movement, no wheezing abdomen: nontender, nondistended, Original Note: - Subjective Subjective: Patient intubated and sedated. He follows commands this morning. He shakes his head no when asked if he has any pain. He is taking some spontaneous breaths with small tidal volume. - Objective MAR Reviewed: Yes Vital Signs & Weight: Vital Signs (12 hours) Temp Pulse Resp BP Pulse Ox 08/01/17 08:00 98.0 F 22 H 08/01/17 07:14 98.0 F 90 12 93 L 08/01/17 06:49 82 08/01/17 04:00 97.8 F 08/01/17 02:44 104 H 109/83 08/01/17 00:25 88 127/81 08/01/17 00:00 97.7 F 07/31/17 22:32 86 123/71 07/31/17 22:00 21 H Weight Admit Weight 63.957 kg Weight 74.5 kg Most Recent Monitor Data Heart Rate from ECG 94 NIBP 145/79 NIBP BP-Mean 92 Respiration from ECG 22 SpO2 98 I&O: 07/31/17 08/01/17 08/02/17 06:59 06:59 06:59 Intake Total 6637.9 4271.5 Output Total 475 2307 335 Balance 6162.9 1964.5 -335 Result Diagrams: 08/01/17 08:22 08/01/17 04:34 Radiology Reviewed by me: Yes <Azeb Samuel - Last Filed: 08/01/17 09:43> - Objective Vital Signs & Weight: Vital Signs (12 hours) Temp Pulse Resp Pulse Ox 08/01/17 14:58 91 08/01/17 13:06 87 08/01/17 12:00 97.7 F 12 08/01/17 10:45 103 H 08/01/17 10:00 36 H 08/01/17 08:00 98.0 F 22 H 08/01/17 07:14 98.0 F 90 12 93 L 08/01/17 06:49 82 08/01/17 04:00 97.8 F Weight Admit Weight 63.957 kg Weight 74.5 kg Most Recent Monitor Data Heart Rate from ECG 94 NIBP 119/71 NIBP BP-Mean 75 Respiration from ECG 12 SpO2 100 I&O: 07/31/17 08/01/17 08/02/17 06:59 06:59 06:59 Intake Total 6637.9 4271.5 876 Output Total 475 2307 804 Balance 6162.9 1964.5 72 Result Diagrams: 08/01/17 08:22 08/01/17 04:34 <Rex Marin - Last Filed: 08/01/17 15:12> Phys Exam - Physical Examination Constitutional: NAD 4 + pitting bilateral LE edema to calves <Azeb Samuel - Last Filed: 08/01/17 09:43> Dx/Plan (1) Acute on chronic respiratory failure with hypercapnia Code(s): J96.22 - ACUTE AND CHRONIC RESPIRATORY FAILURE WITH HYPERCAPNIA Status: Acute Plan: - moved to ICU and intubated on 07/30 after CO2 on ABG of 116 with agonal breathing -currently on pressure support of 10, peep of 5 and rate of 12. Seems to have calmed down some and sedation able to be lessened - Plan to try and wean from vent over next couple days and eventual extubation without trach placement per family wishes. (2) COPD with exacerbation Code(s): J44.1 - CHRONIC OBSTRUCTIVE PULMONARY DISEASE W (ACUTE) EXACERBATION Status: Acute Plan: started on steroids. will hold off on abx, procal wnl. start inhaled steroids cont duonebs (3) Acute anemia Code(s): D64.9 - ANEMIA, UNSPECIFIED Status: Acute Plan: check LFTs. No abdominal pain, do not suspect he has had further expansion of retroperitoneal hematoma but will cont to monitor H/H (4) Atrial fibrillation with RVR Code(s): I48.91 - UNSPECIFIED ATRIAL FIBRILLATION Status: Resolved Plan: -presented with a fib RVR and spontaneously converted to NSR -cont multaq ashley and metoprolol PRN -continues to be in NSR (5) Hypoalbuminemia due to protein-calorie malnutrition Code(s): E46 - UNSPECIFIED PROTEIN-CALORIE MALNUTRITION Status: Chronic Plan: -started on albumin q 6 hrs by pulm -decrease fluids to half (6) Edema due to hypoalbuminemia Code(s): R60.9 - EDEMA, UNSPECIFIED; E88.09 - OTH DISORDERS OF PLASMA-PROTEIN METABOLISM, NEC Status: Chronic Plan: albumin q6hrs -subsequent poor urinary output (7) History of pulmonary embolism Code(s): Z86.711 - PERSONAL HISTORY OF PULMONARY EMBOLISM Status: Chronic Plan: s/p IVC filter - consider PPX lovenox -bedside sono yesterdaydid not show DVT in BLE femoral or popliteal veins. (8) BPH (benign prostatic hyperplasia) Code(s): N40.0 - BENIGN PROSTATIC HYPERPLASIA WITHOUT LOWER URINRY TRACT SYMP Status: Chronic Plan: -chronic indwelling catheter. (9) Alcohol abuse Code(s): F10.10 - ALCOHOL ABUSE, UNCOMPLICATED Status: Chronic (10) Blindness Code(s): H54.7 - UNSPECIFIED VISUAL LOSS Status: Chronic (11) Macrocytic anemia Code(s): D53.9 - NUTRITIONAL ANEMIA, UNSPECIFIED Status: Chronic (12) Malnourished Code(s): E46 - UNSPECIFIED PROTEIN-CALORIE MALNUTRITION Status: Chronic (13) Retroperitoneal hematoma Code(s): K66.1 - HEMOPERITONEUM Status: Resolved Plan: -occured during recent hospitalization after being placed on heparin for Nolan PE' s and then IVC filter placed. -hgb improved and stable. <Azeb Samuel - Last Filed: 08/01/17 09:43> Attending Addendum - Attending Addendum Date/Time: 08/01/17 1511 I personally evaluated the patient and discussed the management with Dr. Samuel and team. I agree with and repeated the History, Examination, Assessment and Plan documented above with any addition or exceptions noted below. Sedation vacations, lung protective ventilation, begin feeds, diurese and I would hold fluids and albumin, trend h/h I >> O at this point and low suspicion of bleeding and will hold dvt ppx. Guarded prognosis. <Rex Marin - Last Filed: 08/01/17 15:12>
[2017-08-01] MEDS ORDERED: Budesonide 0.5 MG/2 ML NEB INH SCH (09:00)
--- NOTE | 2017-08-01 09:50 | RAD ---
CHEST 1 VIEW: HISTORY: Ventilated patient. COMPARISON: Chest radiograph prior day. FINDINGS: The patient appears to be intubated with endotracheal tube tip in good position. Enteric tube side p ort is just below the GE junction. Layering bilateral pleural effusions. There are bibasilar airspa ce opacities. The cardiac silhouette and mediastinal contour is similar. No acute osseous abnormality. IMPRESSION: 1. Similar appearance to slight worsening of the bilateral lower lobe effusion and consolidation. 2. Moderate edema. POS: [facility]
[2017-08-01] MEDS ORDERED: Furosemide 20 MG TAB PO SCH (10:00)
[2017-08-01] MEDS: Potassium Chloride 20 MEQ in Lactated Ringer's 1,000 ML IV SCH ×2 (11:00→23:59)
[2017-08-01 11:01] LABS: pH, Arterial 7.37 (7.35-7.45)
[2017-08-01 11:02] LABS: CO2 Tension 61.6 mmHg (35.0-45.0)
[2017-08-01 11:03] LABS: Actual Bicarbonate (HCO3a) 34.5 mEq/L (22-26); Base Excess (BEa) 7.9 mEq/L (0 (+/-) 2.5); O2 Tension (PaO2) 40.1 mmHg (80.0-100.0)
[2017-08-01 11:06] LABS: Carboxyhemoglobin (COHb) 2.7 gm% (0.0-3.0); Hematocrit-ABG 29.4 % (42.0-52.0); Hemoglobin (Hb) 8.3 g/dL (14.0-18.0)
[2017-08-01 11:07] LABS: Calcium, Ionized 1.1 mmol/L (1.12-1.30); Potassium - ABG Lab 3.3 mmol/L (3.70-5.30); Puncture Site LRA
[2017-08-01 11:10] LABS: ALT (SGPT) 8 U/L (8-55); AST (SGOT) 23 U/L (5-34); Albumin 3.3 g/dL (3.4-4.8); Alkaline Phosphatase 41 U/L (40-150); Bilirubin, Direct 0.9 mg/dL (0.1-0.3); Bilirubin, Total 1.6 mg/dL (0.2-1.2); Protein, Total 5.4 g/dL (5.8-8.1)
[2017-08-01 13:37] VITALS: BMI 22.8
--- NOTE | 2017-08-01 16:29 | PRG ---
DATE OF SERVICE: 08/01/2017 SUBJECTIVE: Mr. Pena was evaluated this morning. He was awaken with sedation holiday and nodded that he wanted to be extubated. The family decided to make him a DNR. His IMV was turned down to 4 with pressure support of 10 and PEEP of 5 with that. His tidal volume has dropped to just over 100 m L. He began breathing with a respiratory rate in the 30s to low 40s. OBJECTIVE: LUNGS: Lungs remain distant. Heart: Regular rhythm. ABDOMEN: Soft. This shows that in my mind, he is just too weak to keep going. His white count today is 6.9, hemoglo bin 7.8 and 8.2, platelets 138,000. Electrolytes are unremarkable. I truly believe he is at the end of his life and that ongoing mechanical ventilation will add little to his chance of survivability. The family should consider withdrawal of care and comfort measures at this point. I would not antic ipate that he would last more than 30 minutes to a few hours once he is extubated.
[2017-08-01] MEDS: Budesonide 0.25 MG/2 ML NEB INH SCH (18:29)
[2017-08-01] MEDS: Famotidine 20 MG TAB PER TUBE SCH (20:14)
[2017-08-02 02:41] VITALS: BP 131/74
[2017-08-02 04:40] LABS: #Lymphocytes 0.4 thou/uL (1.20-3.40); #Monocytes 0.7 thou/uL (0.11-0.59); #Neutrophils 6.3 thou/uL (1.40-6.50); %Eosinophils 0.2 % (0.0-10.0); %Lymphocytes 5.5 % (21.0-51.0); %Monocytes 9.9 % (0.0-10.0); %Neutrophils 84.4 % (42.0-75.0); Mean Corpuscular Hemoglobin 33.9 pg (27.0-31.0); Mean Platelet Volume 7.5 fL (7.4-10.4); Platelet Count 142 thou/uL (130-400); RBC Distribution Width 15.8 % (11.5-14.5); Red Blood Cell (RBC) Count 2.35 mill/uL (4.70-6.10); White Blood Cell (WBC) Count 7.5 thou/uL (4.8-10.8)
[2017-08-02 04:53] LABS: ALT (SGPT) 9 U/L (8-55); AST (SGOT) 21 U/L (5-34); Albumin 3.2 g/dL (3.4-4.8); Alkaline Phosphatase 41 U/L (40-150); Anion Gap 10 mmol/L (10-20); BUN (Urea Nitrogen) 7 mg/dL (8.4-25.7); Bilirubin, Total 1.1 mg/dL (0.2-1.2); Calc. Creatinine Clearance 108 mL/min (70-130); Calcium 8.6 mg/dL (7.8-10.44); Carbon Dioxide 34 mmol/L (23-31); Chloride 99 mmol/L (98-107); Estimated GFR-MDRD Greater than 90; Globulin 2.1 g/dL (2.4-3.5); Glucose 97 mg/dL (83-110); Protein, Total 5.3 g/dL (5.8-8.1); Sodium 139 mmol/L (136-145)
[2017-08-02] MEDS: Budesonide 0.25 MG/2 ML NEB INH SCH (06:34)
[2017-08-02] MEDS ORDERED: Furosemide 20 MG/2 ML VIAL SLOW IVP SCH (08:30)
--- NOTE | 2017-08-02 08:50 | PDOC.FM ---
- Subjective Subjective: patient is intubated and sedated. Spoke with his family members yesterday and they are trying to get his 2 sons here prior to extubation. Family reportedly to arrive sometime this morning and expect to proceed with terminal extubation as patient does not desire trach. yesterday his support on ventilator was reduced and patient did not fair well with this. Has very small < 200 ml tidal volumes and become hypoxic. - Objective MAR Reviewed: Yes Vital Signs & Weight: Vital Signs (12 hours) Temp Pulse Resp BP 08/02/17 06:36 90 08/02/17 04:00 98.3 F 08/02/17 02:40 97 131/74 08/02/17 00:59 84 116/65 08/01/17 22:17 104 H 110/65 08/01/17 22:00 12 Weight Admit Weight 63.957 kg Weight 76.1 kg Most Recent Monitor Data Heart Rate from ECG 78 NIBP 122/74 NIBP BP-Mean 90 Respiration from ECG 8 SpO2 100 I&O: 08/01/17 08/02/17 08/03/17 06:59 06:59 06:59 Intake Total 4271.5 2455.3 Output Total 2307 1290 Balance 1964.5 1165.3 Result Diagrams: 08/02/17 03:38 08/02/17 03:38 <Azeb Samuel - Last Filed: 08/02/17 08:48> - Objective Vital Signs & Weight: Vital Signs (12 hours) Temp Pulse Resp 08/02/17 14:38 117 H 08/02/17 14:00 15 08/02/17 12:32 92 08/02/17 12:00 12 08/02/17 11:00 98.5 F 08/02/17 10:33 75 08/02/17 08:00 98 F 75 15 08/02/17 06:36 90 08/02/17 04:00 98.3 F Weight Admit Weight 63.957 kg Weight 76.1 kg Most Recent Monitor Data Heart Rate from ECG 121 NIBP 113/78 NIBP BP-Mean 85 Respiration from ECG 15 SpO2 100 I&O: 08/01/17 08/02/17 08/03/17 06:59 06:59 06:59 Intake Total 4271.5 2455.3 60 Output Total 2307 1290 1335 Balance 1964.5 1165.3 -1275 Result Diagrams: 08/02/17 03:38 08/02/17 03:38 <Rex Marin - Last Filed: 08/02/17 14:54> Phys Exam - Physical Examination Respiratory: no wheezing rhales bilaterally Cardiovascular: RRR, no significant murmur Gastrointestinal: soft 3+ pitting BLE edema sedated Skin: no rash <Azeb Samuel - Last Filed: 08/02/17 08:48> Dx/Plan (1) Acute on chronic respiratory failure with hypercapnia Code(s): J96.22 - ACUTE AND CHRONIC RESPIRATORY FAILURE WITH HYPERCAPNIA Status: Acute Plan: - moved to ICU and intubated on 07/30 after CO2 on ABG of 116 with agonal breathing -Did not tolerate trial of weaning yesterday. Do not expect this to improve due to his overall severe muscle loss. -Family moving towards terminal extubation (2) COPD with exacerbation Code(s): J44.1 - CHRONIC OBSTRUCTIVE PULMONARY DISEASE W (ACUTE) EXACERBATION Status: Acute Plan: oral steroids. will hold off on abx, procal wnl. inhaled steroids cont duonebs (3) Acute anemia Code(s): D64.9 - ANEMIA, UNSPECIFIED Status: Acute Plan: stable, do not suspect underlying new bleed. Likely due to drawing fluid into intravascular space s/p albumin no evidence of hemolysis. No gross bleed. (4) Atrial fibrillation with RVR Code(s): I48.91 - UNSPECIFIED ATRIAL FIBRILLATION Status: Resolved Plan: -presented with a fib RVR and spontaneously converted to NSR -cont multaq ashley and metoprolol PRN -continues to be in NSR (5) Hypoalbuminemia due to protein-calorie malnutrition Code(s): E46 - UNSPECIFIED PROTEIN-CALORIE MALNUTRITION Status: Chronic Plan: -cont gentle fluids, if not extubated today will initiate feeds. (6) Edema due to hypoalbuminemia Code(s): R60.9 - EDEMA, UNSPECIFIED; E88.09 - OTH DISORDERS OF PLASMA-PROTEIN METABOLISM, NEC Status: Chronic Plan: albumin q6hrs -subsequent poor urinary output (7) History of pulmonary embolism Code(s): Z86.711 - PERSONAL HISTORY OF PULMONARY EMBOLISM Status: Chronic Plan: s/p IVC filter - consider PPX lovenox -bedside sono did not show DVT in BLE femoral or popliteal veins. (8) BPH (benign prostatic hyperplasia) Code(s): N40.0 - BENIGN PROSTATIC HYPERPLASIA WITHOUT LOWER URINRY TRACT SYMP Status: Chronic Plan: -chronic indwelling catheter. (9) Alcohol abuse Code(s): F10.10 - ALCOHOL ABUSE, UNCOMPLICATED Status: Chronic (10) Blindness Code(s): H54.7 - UNSPECIFIED VISUAL LOSS Status: Chronic (11) Macrocytic anemia Code(s): D53.9 - NUTRITIONAL ANEMIA, UNSPECIFIED Status: Chronic (12) Malnourished Code(s): E46 - UNSPECIFIED PROTEIN-CALORIE MALNUTRITION Status: Chronic (13) Retroperitoneal hematoma Code(s): K66.1 - HEMOPERITONEUM Status: Resolved Plan: -occured during recent hospitalization after being placed on heparin for Nolan PE' s and then IVC filter placed. -hgb improved and stable. - Plan Plan: Overall very poor prognosis, would be appropriate for extubation and do not suspsect he will live long after. If so, consider inpatient hospice. <Azeb Samuel - Last Filed: 08/02/17 08:48> Attending Addendum - Attending Addendum Date/Time: 08/02/17 3259 I personally evaluated the patient and discussed the management with Dr. Samuel. I agree with and repeated the History, Examination, Assessment and Plan documented above with any addition or exceptions noted below. Limited by intubation and sedation. Follows commands, moves all extremities. Diffuse rhonchi. Poor air movement. RRR s M. Distal edema. Acute hypoxic/hypercapneic respiratory failure. Poor prognosis and pulling very small TV's. Continue pulmonary toilet. Await family for discussion of extubation and withdrawal of care. Hold any feeds. Continue managment of comorbidities pending family decision. <Rex Marin - Last Filed: 08/02/17 14:54>
--- NOTE | 2017-08-02 09:04 | RAD ---
PORTABLE CHEST: Date: 08/02/17 HISTORY: Dyspnea. CCU follow-up. COMPARISON: 08/01/17. FINDINGS/IMPRESSION: Lungs appear well aerated. Evidence of small bilateral effusions. No infiltrate or vascular congestio n. ET tube and NG tube remain in position. No acute interval change from yesterday. POS: [facility]
[2017-08-02] MEDS: Dronedarone HCl 400 MG TAB PO SCH ×2 (09:29→16:45)
[2017-08-02] MEDS: predniSONE 20 MG TAB PO SCH (09:29)
[2017-08-02] MEDS: Famotidine 20 MG TAB PER TUBE SCH (09:30)
[2017-08-02] MEDS: guaiFENesin ER 600 MG TAB PO SCH (09:30)
--- NOTE | 2017-08-02 10:44 | PRG ---
DATE OF SERVICE: 08/02/2017 OBJECTIVE: VITAL SIGNS: Mr. Pena has heart rate of 90, blood pressure 122/74, respiratory rate is in the 20s . GENERAL: His pressure support breaths are small. LUNGS: Remarkable for distant breath sounds. HEART: Regular rhythm. ABDOMEN: Soft. EXTREMITIES: Without asymmetry. IMAGING: Chest radiograph essentially unchanged. It is a poor quality film. Intake and output is positive 1165. LABORATORY DATA: White count 7.5, hemoglobin 8.0, platelets 142. Sodium 139, potassium 4, chloride 99, bicarbonate 34, BUN 7, creatinine 0.62. IMPRESSION: Multiorgan dysfunction with extreme cachexia combined with advanced obstructive lung dis ease. Family is contemplating withdrawal of support today and comfort measures. If he is extubated, I would not anticipate he would survive very long. Critical care time was 30 minutes. ADDENDUM: I will review medications. Medicines will be simplified. Sedation protocol can be discon tinued when he is extubated.
[2017-08-02] MEDS: Potassium Chloride 20 MEQ in Lactated Ringer's 1,000 ML IV SCH (13:05)
[2017-08-02] MEDS ORDERED: Lorazepam 2 MG/ML VIAL SLOW IVP PRN (19:01)
[2017-08-02] MEDS ORDERED: Morphine 4 MG/ML Carpuject SLOW IVP PRN (19:01)
[2017-08-02] MEDS ORDERED: Morphine 4 MG/ML VIAL SLOW IVP PRN (19:05)
[2017-08-02 19:40] VITALS: TEMP 99.1
--- NOTE | 2017-08-02 23:13 | PDOC.EVN ---
Event Note - Event Note Event Note: Withdrawal of care/extubation occurred at 2001 on 08/02/17. Residents paged as patient was PEA at approximately 2044 and presented to bedside immediately. Time of was 2047. Family present in room at time of . Patient evaluated. No pulse, no breath sounds, no response to painful stimuli. Please see full summary dictation.
--- NOTE | 2017-08-03 11:30 | DS-2 ---
ATTENDING PHYSICIAN: Dr. Rex Marin and Dr. Magy Torres RESIDENT: Dr. Azeb Samuel DATE OF ADMISSION: 07/29/2017 DATE OF : 08/02/2017 TIME OF : 2047. CAUSE OF : Acute on chronic respiratory failure secondary to advanced chronic obstructive pulmonary disease with exacerbation. SECONDARY DIAGNOSES: 1. Severe muscle wasting. 2. Atrial fibrillation with rapid ventricular response. 3. Hypoalbuminemia due to protein calorie malnutrition. 4. Edema secondary to hypoalbuminemia. 5. History of recent pulmonary embolism. 6. Benign prostatic hyperplasia. 7. Alcohol abuse. 8. Blindness. 9. Macrocytic anemia. 10. Recent retroperitoneal hematoma. 11. Chronic hepatitis B infection. HOSPITAL COURSE: This is a 76-year-old male with the above history who presented to the ER with complaints of difficulty breathing. The patient had been recently discharged from the hospital requiring oxygen. The patient was monitored and supported with oxygen in the hospital. At the time of admission the patient had new onset atrial fibrillation with rapid ventricular response and was treated with diltiazem and this was thought to be a part of his acute difficulty with breathing. The patient spontaneously converted on a diltiazem drip and was transitioned over to [place] by Cardiology recommendation. The patient remained in sinus rhythm and was rate controlled. However, on day 2 of his hospitalization, he had a Code Green called and was in acute worsened acute on chronic respiratory failure with a CO2 on ABG of 116. The patient was minimally responsive and had agonal breathing. The patient was a full code at that time and was asked again if he want to be intubated and agreed. His was called and she stated to proceed with intubation of the patient. The next day, the family decided that they wanted to make the patient DNR and also all agreed that he would not want a tracheostomy. The patient did awake on sedation holiday and agreed with the decision that he would not want a tracheostomy. Trial of weaning occurred on day 2 of intubation and the patient became hypoxic with worsened hypercapnia upon this a slight weaning trial. Therefore, decision was made to withdraw care as the patient was too weak to be weaned off the ventilator. As the patient had severe muscle wasting, it was not thought that this is an issue that would improve over time. Discussed comfort measures and extubation with family who were all in agreement. On the day of extubation, the family was at bedside and the patient by shaking his head communicated that he did not want a tracheostomy and wanted to be extubated at that time. After family arrived at the bedside the patient did have terminal extubation at 2001 on 08/02/2017 and time of was 2047. This had all been discussed with patient's as well. She states she was too ill to come back up to the hospital for withdrawal of care. However, stated she understood the plan and was okay with following through with it. In regards to patient's other medical conditions throughout the hospital stay, the patient did have poor urinary output and was thought to be severely dehydrated at the time of admission and was aggressively rehydrated and did have improved urinary output. The patient did have pretty severe hypoalbuminemia and therefore relatively severe edema. The patient was started on albumin in the early stages of his hospitalization which did seem to help, but secondary to severe malnutrition this was not thought to be a sustainable treatment. The patient's other laboratory studies were relatively within normal limits outside of his severe respiratory issues. Thank you for allowing us to take part in the care of this patient. CLARA
--- NOTE | 2017-08-05 23:41 | EKG ---
Test Reason : STAT Blood Pressure : / mmHG Vent. Rate : 123 BPM Atrial Rate : 123 BPM P-R Int : 130 ms QRS Dur : 072 ms QT Int : 282 ms P-R-T Axes : 073 087 095 degrees QTc Int : 403 ms Sinus tachycardia Low voltage QRS Nonspecific T wave abnormality Abnormal ECG When compared with ECG of 29-JUL-2017 04:29, Sinus rhythm has replaced Atrial fibrillation Confirmed by Trace GOMEZ ([id number]) on 08/05/2017 11:40:49 PM Referred By: SARA Confirmed By:Trace GOMEZ
--- NOTE | 2017-08-09 08:47 | PQF ---
BLAKE UPTON JR LEO RUIZr [id number] [id number] [id number] CLINICAL DOCUMENTATION CLARIFICATION FORM: POST DISCHARGE Addendum to original discharge summary date: ____ Late entry note date: __ Please exercise your independent, professional judgment in responding to the clarification form. Clinical indicators are provided on the bottom of this form for your review Diagnosis: Acute on Chronic Respiratory Failure Present on Admission (POA): [ x ] Yes [ ] No [ ] Unable to determine Coding guidelines require hospitals to identify whether a diagnosis was present on admission (POA) or not. To accurately assign the appropriate POA indicator, this information must be clearly documented within the medical record. CLINICAL INDICATORS - SIGNS / SYMPTOMS / LABS ER: Resp 18 29 O2 sat 95 100% on 4LNC ER: c/o SOB difficulty breathing uses 4LNC oxygen at home Breath sounds wheezing; increased resp effort; labored; converses in short phrases; H&P: patient felt he wasnt getting enough oxygen at home Physical exam: no resp distress 5-27 CXR: hyperinflation- emphysema w/ small bilateral pleural effusions RISKS; H&P: COPD on 4LNC oxygen at home New onset A-Fib HX PE ER: abuses marijuana per patient since 1960 TREATMENT : Oxygen 4LNC Cardizem drip for new onset A-Fib (This form is maintained as a part of the permanent medical record) 2014 [employer]. All Rights Reserved Peggy [email or web address] [phone] CLARA
== END 2017-08-02 20:48 | disposition expired | DRG 308 ==
LOC: ERS 04:21 → 2NO 07:48 → CCU 07-30 08:24
PROVIDERS: ADMIT Family Medicine; ATTEND Family Medicine
PROC: 0BH18EZ Insertion of Endotracheal Airway into Trachea, Via Natural or Artificial Opening Endoscopic (ICD-10-PCS; principal; 2017-07-30)
PROC: 5A1945Z Respiratory Ventilation, 24-96 Consecutive Hours (ICD-10-PCS; 2017-07-30)
PROC: 0BC68ZZ Extirpation of Matter from Right Lower Lobe Bronchus, Via Natural or Artificial Opening Endoscopic (ICD-10-PCS; 2017-07-30)
DX: I48.91 Unspecified atrial fibrillation (principal); J96.22 Acute and chronic respiratory failure with hypercapnia; J44.1 Chronic obstructive pulmonary disease with (acute) exacerbation; E46 Unspecified protein-calorie malnutrition; R64 Cachexia; B18.1 Chronic viral hepatitis B without delta-agent; T17.890A Other foreign object in other parts of respiratory tract causing asphyxiation, initial encounter; Z66 Do not resuscitate; Z51.5 Encounter for palliative care; E86.0 Dehydration; X58.XXXA Exposure to other specified factors, initial encounter; I10 Essential (primary) hypertension; M62.59 Muscle wasting and atrophy, not elsewhere classified, multiple sites; D53.9 Nutritional anemia, unspecified; E86.1 Hypovolemia; I16.0 Hypertensive urgency; E88.09 Other disorders of plasma-protein metabolism, not elsewhere classified; K76.9 Liver disease, unspecified; N47.8 Other disorders of prepuce; N40.0 Benign prostatic hyperplasia without lower urinary tract symptoms; F12.10 Cannabis abuse, uncomplicated; F10.10 Alcohol abuse, uncomplicated; H54.7 Unspecified visual loss; Z86.711 Personal history of pulmonary embolism; Z86.19 Personal history of other infectious and parasitic diseases; Z95.828 Presence of other vascular implants and grafts; Z87.440 Personal history of urinary (tract) infections; Z99.81 Dependence on supplemental oxygen; Z87.19 Personal history of other diseases of the digestive system; Z68.23 Body mass index [BMI] 23.0-23.9, adult; Z79.899 Other long term (current) drug therapy; Z79.82 Long term (current) use of aspirin; Z79.51 Long term (current) use of inhaled steroids; Z78.1 Physical restraint status; Z87.891 Personal history of nicotine dependence
CPT/HCPCS: 36415; 71045; 80048; 80053; 81001; 82040; 82553; 82805; 83605; 83735; 83880; 84100; 84145; 84443; 84484; 85025; 87086; 93005; 93010; 93306; 94002; 94003; 94640; 94760; 96365; 96376; J1940; J2060; J2270; J2704; J3411; J3475; J3480; J7050; J7120; J7506; J7620; J7626; P9047; S0028